=== PATIENT | female | born 1935 | race Caucasian/White ===

== ENCOUNTER → 2017-03-04 | Outpatient (CLI) | payer OTHER ==
[~2017-03-04] MED LIST: ALLO300T2 PO; AMLO5TAB2 PO; CHOL100010 PO; LEVO88TA3 PO; MULTTAB45 PO; SERT50TA PO; SULI200T PO
[2017-03-04 12:59] LABS: ALT/SGPT 19 U/L (12-78); BLOOD UREA NITROGEN 14 mg/dl (7-18); BUN/CREATININE RATIO 12.3 (10-20); CALCIUM 9.1 mg/dl (8.5-10.1); CARBON DIOXIDE 29 mmol/L (21-32); CHLORIDE 102 mmol/L (98-107); CREATININE 1.15 mg/dl (0.60-1.20); GLUCOSE,FASTING 108 mg/dl (70-99); POTASSIUM 3.7 mmol/L (3.5-5.1); SODIUM 141 mmol/L (136-145)
[2017-03-04 13:10] LABS: ALB/GLOB RATIO 1.1 (0.9-2); ALKALINE PHOSPHATASE 85 U/L (45-117); AST/SGOT 12 U/L (15-37); CHOLESTEROL 206 mg/dl (0-200); HDL CHOLESTEROL 69 mg/dl; LDL CHOLESTEROL CALCULATED 105 mg/dl; TRIGLYCERIDES 160 mg/dl (0-150); VERY LOW DENSITY LIPOPROT CALC 32 mg/dl
== END | disposition home or self-care (01) ==
LOC: C.LABPBG 08:34
PROVIDERS: ATTEND Physician Assistant
DX: Z00.00 Encounter for general adult medical examination without abnormal findings (principal); E78.5 Hyperlipidemia, unspecified; E03.9 Hypothyroidism, unspecified

== ENCOUNTER 2022-08-13 11:33 | Inpatient (IN) ==
[2022-08-13] MEDS ORDERED: SODIUM CHLORIDE 0.9% 1000ML 500 ML IV ONE (12:03)
--- NOTE | 2022-08-13 12:09 | Emergency Department Note ---
Impression & Plan Dizziness, Fall, Fracture of right hip, Dysrhythmia ED Provider Note NAME: RAGINI GODFREY AGE: 87 SEX: F : 1935 ARRIVES VIA: Ambulance INFORMANT: [Patient][ems, nursing] ED PROVIDER(S): [Sung Rivera MD] CHIEF COMPLAINT: Fall, hip pain HISTORY OF PRESENT ILLNESS: The patient is an 87-year-old female who states that a short time ago, she felt dizzy, stumbled and fell. She hit the back of her head but did not lose consciousness. She denies any neck pain or chest pain or back pain. She complains of right hip pain. In route to the hospital, the patient was given 4 mg of morphine and 4 mg Zofran IV. This helped the pain some but she still has discomfort. There has been no recent cough, cold or congestion. She has been in baseline health. She is not on blood thinning agents. PMHx/PSHx: See Below SOCIAL HISTORY: See Below. PHYSICAL EXAM: GENERAL: Patient is in no acute distress. HEENT: No acute trauma, normocephalic atraumatic, mucous membranes dry, no nasal congestion. NECK: No stridor, no adenopathy, nontender cervical spine, trachea is midline. LUNGS: Clear to auscultation bilaterally, no wheeze, no rhonchi, breath sounds equal. HEART: Without murmurs gallops or rubs, regular rate and rhythm. ABDOMEN: Soft, nontender, bowel sounds positive, no peritonitis. EXTREMITIES: No cyanosis or edema. The right lower extremity is shortened and externally rotated. She is tender over the area of the right lateral hip. The right knee and right ankle are nontender. No evidence for right lower extremity neurovascular compromise NEUROLOGIC: Oriented x 3, awake and alert. No speech slur SKIN: No rash, no jaundice, no diaphoresis. DIFFERENTIAL DIAGNOSIS: Hip fracture, pelvic fracture, intracranial injury, C-spine injury, dehydration, electrolyte imbalance, anemia, UTI, among others. EMERGENCY DEPARTMENT COURSE/PROCEDURES: Prior/Outside records reviewed: EMS notes. ECG per my interpretation: Indication was fall. The ECG shows a normal sinus rhythm with some sinus arrhythmia. The rate is 67. There is no ST elevation, no PVCs. The QTc is 435. Continuous Cardiac Monitoring per my interpretation: An order was placed for continuous cardiac monitoring. The monitor shows a rate of 69 with normal sinus rhythm. MEDICAL DECISION MAKING: There is a significant leukocytosis at 24,000, this elevation could be consistent with infection or just the stress of her presentation. There is a normal hemoglobin. Platelet count slightly elevated at over 500. No coagulopathy. No renal failure. Magnesium was low at 1.5. No concerning liver enzyme elevation. ECG showed a sinus rhythm, there was some sinus arrhythmia. No ST elevation. Cardiac enzyme testing x1 was not consistent with acute cardiac injury. TSH was slightly elevated however, the T4 was normal. Urinalysis did not show findings of infection. COVID test returned negative. Brain CT showed no acute bleed or mass effect. C-spine CT showed no acute fracture. Right hip and pelvis films per my review showed a subcapital right hip fracture, no pelvis fracture. On exam, patient appeared to have a right hip fracture clinically. Patient received IV magnesium. She was given IV morphine as needed for pain. A Lopez catheter was placed. She was given a 500 cc saline bolus. She received IV Tylenol. During the patient's stay, she had some sinus pauses of around 3 to 4 seconds. This had not been found on her ECG. The patient is in need of a hospital stay. She has fractured her hip. She did feel dizzy before falling and certainly, the sinus pauses could be responsible. She will need a cardiac work-up. I spoke with the patient and case management, the on-call hospitalist was consulted. DISPOSITION: Patient's presentation and findings warrant a hospital stay. Past Med/Surg History Medical History Afib Benign hypertension with chronic kidney disease, stage III CKD (chronic kidney disease), stage III Closed right hip fracture Depression Gout Hiatal hernia History of upper respiratory infection Hyperlipidemia Hypertension Hypothyroidism Macular degeneration Osteoporosis, senile Sinus node dysfunction SSS (sick sinus syndrome) pacer planned 08/13/22 Vitamin D deficiency Surgical History (Updated 08/13/22 @ 18:28 by Marleny Whelan DO) History of surgical removal of skin lesion skin tag up to 15 History of tonsillectomy S/P cataract surgery Family History Father , age 79 Stroke syndrome Mother , age 83 Cardiac failure Brother Lung cancer Denies family history of Ovarian cancer Prostate cancer Myocardial infarction Breast cancer Colorectal cancer Social History Smoking Status: Never smoker Tobacco Type: Cigarettes Cigarettes Per Day: 5-6 CIGGERETTES A DAY; Second Hand Exposure: No; Do You Dip or Chew Tobacco: No; Hx Alcohol Use: Yes Hx Substance Use: No Preferred Language: [place] Communication Ability: Effective Visual Impairment: No Limitations Hearing Ability: Use of Hearing Aid Binding Nicker Required: No Beliefs That Will Affect Care: None marital status: / Current Living Situation: Alone current occupational status: retired Feels Safe at Home: Yes Childhood Exposure to Second-Hand Smoke: No Diet: regular Diet Comment: regular caffeine: Yes during the past year weight has: remained stable Dental Care, Regularly: No Physical Activity Frequency: Daily Seatbelt Use: always Sunscreen Use: No Assistive Devices: Hearing Aid - Bilateral and Oxygen - Continuous Allergies Allergies Allergy/AdvReac Type Severity Reaction Status Date / Time atenolol Allergy Unknown Verified 06/25/22 13:44 chlorthalidone Allergy Unknown Verified 06/25/22 13:44 enalapril Allergy Unknown Verified 06/25/22 13:44 iodine Allergy Unknown Verified 06/25/22 13:44 shellfish derived Allergy Unknown Verified 06/25/22 13:44 Sulfa (Sulfonamide Allergy Unknown Verified 06/25/22 13:44 Antibiotics) amoxicillin [From Augmentin] Allergy Nausea and Verified 06/25/22 13:44 vomitting Beta-Blockers Allergy Verified 06/25/22 13:44 (Beta-Adrenergic Bloc clavulanic acid Allergy Verified 06/25/22 13:44 [From Augmentin] enalaprilat [From Vasotec] Allergy Verified 06/25/22 13:44 naproxen [From Aleve] Allergy Hives with Verified 06/25/22 13:44 throat swelling. Home Meds Home Medications Medication Instructions Recorded Confirmed allopurinol 300 mg tablet 300 mg PO .COMPLEX 10/27/18 08/13/22 multivitamin 1 tab PO DAILY 10/27/18 08/13/22 cholecalciferol (vitamin D3) 25 2,000 units PO DAILY 08/14/19 08/13/22 mcg (1,000 unit) tablet Previous Rx's Medication Instructions Recorded sulindac 200 mg tablet 200 mg PO DAILY #60 tabs 10/27/18 amlodipine 5 mg tablet See Rx Instructions .Route 10/09/21 .COMPLEX #90 tabs sertraline 50 mg tablet See Rx Instructions .Route 10/09/21 .COMPLEX #135 tabs levothyroxine 88 mcg tablet 88 mcg PO DAILY #90 tabs 03/22/22 Results & Data (ED) Vital Signs Vital Signs - 24 hr 08/13/22 11:48 08/13/22 11:48 08/13/22 11:52 Temperature 36.5 C 36.5 C Temperature Source Oral Oral Pulse Rate 64 69 Pulse Rate from SpO2 Sensor Respiratory Rate 15 15 Respiratory Effort / Characteristics Non-Labored Spontaneous Non-Labored Spontaneous Respiratory Depth Normal Normal Blood Pressure 145/72 H Blood Pressure Mean 96 Pulse Oximetry 95 95 Oxygen Delivery Method Room Air Room Air Sepsis Recent Fever Within 48 Hours No Sepsis New/Unexplained Change in Mental Status N/A Sepsis Action Taken by Nursing No Action Required 08/13/22 11:48 08/13/22 11:50 08/13/22 12:00 Temperature Temperature Source Pulse Rate 63 64 Pulse Rate from SpO2 Sensor 64 62 Respiratory Rate 13 16 Respiratory Effort / Characteristics Respiratory Depth Blood Pressure 144/71 H Blood Pressure Mean 95 Pulse Oximetry 97 96 Oxygen Delivery Method Sepsis Recent Fever Within 48 Hours Sepsis New/Unexplained Change in Mental Status Sepsis Action Taken by Nursing 08/13/22 12:00 08/13/22 12:10 08/13/22 12:33 Temperature Temperature Source Pulse Rate 64 65 78 Pulse Rate from SpO2 Sensor 68 Respiratory Rate 21 17 15 Respiratory Effort / Characteristics Respiratory Depth Blood Pressure Blood Pressure Mean Pulse Oximetry 93 93 Oxygen Delivery Method Sepsis Recent Fever Within 48 Hours Sepsis New/Unexplained Change in Mental Status Sepsis Action Taken by Nursing 08/13/22 12:40 08/13/22 12:50 08/13/22 13:00 Temperature Temperature Source Pulse Rate 78 72 109 H Pulse Rate from SpO2 Sensor 77 98 H Respiratory Rate 19 15 20 Respiratory Effort / Characteristics Respiratory Depth Blood Pressure Blood Pressure Mean Pulse Oximetry 93 98 Oxygen Delivery Method Sepsis Recent Fever Within 48 Hours Sepsis New/Unexplained Change in Mental Status Sepsis Action Taken by Nursing 08/13/22 13:10 08/13/22 13:20 08/13/22 13:24 Temperature Temperature Source Pulse Rate 98 H 86 102 H Pulse Rate from SpO2 Sensor 100 H 85 109 H Respiratory Rate 16 21 18 Respiratory Effort / Characteristics Respiratory Depth Blood Pressure Blood Pressure Mean Pulse Oximetry 98 97 98 Oxygen Delivery Method Sepsis Recent Fever Within 48 Hours Sepsis New/Unexplained Change in Mental Status Sepsis Action Taken by Nursing 08/13/22 13:24 08/13/22 13:30 08/13/22 13:31 Temperature Temperature Source Pulse Rate 86 Pulse Rate from SpO2 Sensor 82 Respiratory Rate 18 Respiratory Effort / Characteristics Respiratory Depth Blood Pressure 131/101 H 143/102 H Blood Pressure Mean 111 115 Pulse Oximetry 96 Oxygen Delivery Method Sepsis Recent Fever Within 48 Hours Sepsis New/Unexplained Change in Mental Status Sepsis Action Taken by Nursing 08/13/22 13:31 08/13/22 13:40 08/13/22 13:50 Temperature Temperature Source Pulse Rate 94 H 94 H 97 H Pulse Rate from SpO2 Sensor 85 97 H 88 Respiratory Rate 16 16 22 Respiratory Effort / Characteristics Respiratory Depth Blood Pressure Blood Pressure Mean Pulse Oximetry 99 98 97 Oxygen Delivery Method Sepsis Recent Fever Within 48 Hours Sepsis New/Unexplained Change in Mental Status Sepsis Action Taken by Nursing 08/13/22 14:00 08/13/22 14:10 08/13/22 14:20 Temperature Temperature Source Pulse Rate 86 82 78 Pulse Rate from SpO2 Sensor 93 H 83 77 Respiratory Rate 13 17 18 Respiratory Effort / Characteristics Respiratory Depth Blood Pressure Blood Pressure Mean Pulse Oximetry 99 99 99 Oxygen Delivery Method Sepsis Recent Fever Within 48 Hours Sepsis New/Unexplained Change in Mental Status Sepsis Action Taken by Nursing 08/13/22 14:30 08/13/22 14:33 08/13/22 14:33 Temperature Temperature Source Pulse Rate 83 84 Pulse Rate from SpO2 Sensor 83 84 Respiratory Rate 13 17 Respiratory Effort / Characteristics Respiratory Depth Blood Pressure 173/98 H Blood Pressure Mean 123 Pulse Oximetry 99 99 Oxygen Delivery Method Sepsis Recent Fever Within 48 Hours Sepsis New/Unexplained Change in Mental Status Sepsis Action Taken by Nursing 08/13/22 14:40 08/13/22 14:50 08/13/22 15:00 Temperature Temperature Source Pulse Rate 81 73 Pulse Rate from SpO2 Sensor 82 83 Respiratory Rate 15 12 Respiratory Effort / Characteristics Respiratory Depth Blood Pressure 148/74 H Blood Pressure Mean 98 Pulse Oximetry 97 99 Oxygen Delivery Method Sepsis Recent Fever Within 48 Hours Sepsis New/Unexplained Change in Mental Status Sepsis Action Taken by Nursing 08/13/22 15:00 08/13/22 15:10 08/13/22 15:20 Temperature Temperature Source Pulse Rate 71 79 74 Pulse Rate from SpO2 Sensor 75 74 74 Respiratory Rate 15 14 19 Respiratory Effort / Characteristics Respiratory Depth Blood Pressure Blood Pressure Mean Pulse Oximetry 98 96 94 Oxygen Delivery Method Sepsis Recent Fever Within 48 Hours Sepsis New/Unexplained Change in Mental Status Sepsis Action Taken by Nursing 08/13/22 15:30 08/13/22 15:30 Temperature Temperature Source Pulse Rate 75 Pulse Rate from SpO2 Sensor 76 Respiratory Rate 15 Respiratory Effort / Characteristics Respiratory Depth Blood Pressure 162/69 H Blood Pressure Mean 100 Pulse Oximetry 99 Oxygen Delivery Method Sepsis Recent Fever Within 48 Hours Sepsis New/Unexplained Change in Mental Status Sepsis Action Taken by Alf Medications Current Medication List: was personally reviewed by me Laboratory Data Attestation: I reviewed the patient's lab results. 08/13/22 12:20 08/13/22 12:20 Lab Results 08/13/22 08/13/22 08/13/22 Range/Units 12:10 12:20 12:20 WBC 24.97 H (4.8-10.8) K/ul RBC 3.99 L (4.20-5.40) M/uL Hgb 12.6 (12.0-16.0) g/dl Hct 36.6 L (37.0-47.0) % MCV 91.7 (80.0-100.0) fL MCH 31.6 (25.0-34.0) pg MCHC 34.4 (32.0-36.0) g/dL RDW Std Deviation 43.8 (36.4-46.3) fL RDW Coeff of Fabrice 13.1 (11.5-14.5) % Plt Count 562 H (130-400) K/uL MPV 9.7 (9.4-12.4) fL Immature Gran % (Auto) 0.8 % Neut % (Auto) 91.4 % Lymph % (Auto) 4.2 % Haakon % (Auto) 3.2 % Eos % (Auto) 0.2 % Baso % (Auto) 0.2 % Neut # (Auto) 22.81 H (1.40-6.50) K/uL Lymph # (Auto) 1.05 L (1.2-3.4) K/uL Haakon # (Auto) 0.81 H (0.11-0.59) K/uL Eos # (Auto) 0.06 (0-0.50) K/uL Baso # (Auto) 0.05 (0-0.2) K/uL Immature Gran # (Auto) 0.19 (0.01-0.20) K/uL PT 11.1 (9.0-12.0) Seconds INR 1.0 (0.9-1.1) APTT 26.4 (21.0-31.0) Seconds PTT Ratio 0.9 Sodium (136-145) mmol/L Potassium (3.5-5.1) mmol/L Chloride (98-107) mmol/L Carbon Dioxide (21-32) mmol/L Anion Gap (3-11) BUN (6-23) mg/dl Creatinine (0.6-1.2) mg/dl Est Cr Clr Drug Dosing Est GFR ( Amer) ml/min Est GFR (Non-Af Amer) ml/min BUN/Creatinine Ratio (10-20) Glucose (70-99(Fasting)) mg/dl Calcium (8.6-10.3) mg/dl Magnesium (1.7-2.4) mg/dl Total Bilirubin (0.2-1.0) mg/dl AST (13-39) U/L ALT (7-52) U/L Alkaline Phosphatase (34-104) U/L Troponin I High Sens (0-14) pg/ml Total Protein (6.0-8.3) gm/dl Albumin (3.4-5.0) gm/dl Globulin (2.5-4.0) gm/dl Albumin/Globulin Ratio (0.9-2) TSH (0.300-4.500) uIu/ml Free T4 (0.61-1.60) ng/dl Urine Color Urine Appearance (Clear) Urine pH (4.5-7.5) Ur Specific Gray (1.000-1.030) Urine Protein (Negative) Urine Glucose (UA) (Negative) Urine Ketones (Negative) Urine Blood (Negative) Urine Nitrite (Negative) Urine Bilirubin (Negative) Urine Urobilinogen (Negative) Ur Leukocyte Esterase (Negative) Urine WBC (Auto) (0-5) /hpf Urine RBC (Auto) (0-4) /hpf U Hyaline Cast (Auto) (0-5) /lpf U Epithel Cells (Auto) (0-5) /lpf Urine Bacteria (Auto) (Negative) SARS-CoV-2, RNA, NAAT NEGATIVE (NEGATIVE) 08/13/22 08/13/22 08/13/22 Range/Units 12:20 12:20 13:20 WBC (4.8-10.8) K/ul RBC (4.20-5.40) M/uL Hgb (12.0-16.0) g/dl Hct (37.0-47.0) % MCV (80.0-100.0) fL MCH (25.0-34.0) pg MCHC (32.0-36.0) g/dL RDW Std Deviation (36.4-46.3) fL RDW Coeff of Fabrice (11.5-14.5) % Plt Count (130-400) K/uL MPV (9.4-12.4) fL Immature Gran % (Auto) % Neut % (Auto) % Lymph % (Auto) % Haakon % (Auto) % Eos % (Auto) % Baso % (Auto) % Neut # (Auto) (1.40-6.50) K/uL Lymph # (Auto) (1.2-3.4) K/uL Haakon # (Auto) (0.11-0.59) K/uL Eos # (Auto) (0-0.50) K/uL Baso # (Auto) (0-0.2) K/uL Immature Gran # (Auto) (0.01-0.20) K/uL PT (9.0-12.0) Seconds INR (0.9-1.1) APTT (21.0-31.0) Seconds PTT Ratio Sodium 138 (136-145) mmol/L Potassium 3.7 (3.5-5.1) mmol/L Chloride 101 (98-107) mmol/L Carbon Dioxide 27 (21-32) mmol/L Anion Gap 10 (3-11) BUN 17 (6-23) mg/dl Creatinine 0.89 (0.6-1.2) mg/dl Est Cr Clr Drug Dosing Not Reportable Est GFR ( Amer) 67.1 ml/min Est GFR (Non-Af Amer) 57.9 ml/min BUN/Creatinine Ratio 19.1 (10-20) Glucose 113 H (70-99(Fasting)) mg/dl Calcium 9.4 (8.6-10.3) mg/dl Magnesium 1.5 L (1.7-2.4) mg/dl Total Bilirubin 0.5 (0.2-1.0) mg/dl AST 19 (13-39) U/L ALT 11 (7-52) U/L Alkaline Phosphatase 73 (34-104) U/L Troponin I High Sens 7.1 (0-14) pg/ml Total Protein 6.2 (6.0-8.3) gm/dl Albumin 3.9 (3.4-5.0) gm/dl Globulin 2.3 L (2.5-4.0) gm/dl Albumin/Globulin Ratio 1.7 (0.9-2) TSH 4.829 H (0.300-4.500) uIu/ml Free T4 1.08 (0.61-1.60) ng/dl Urine Color Yellow Urine Appearance Clear (Clear) Urine pH 7.5 (4.5-7.5) Ur Specific Gray 1.009 (1.000-1.030) Urine Protein Negative (Negative) Urine Glucose (UA) Negative (Negative) Urine Ketones Negative (Negative) Urine Blood 2+ H (Negative) Urine Nitrite Negative (Negative) Urine Bilirubin Negative (Negative) Urine Urobilinogen Negative (Negative) Ur Leukocyte Esterase Trace H (Negative) Urine WBC (Auto) 1-5 (0-5) /hpf Urine RBC (Auto) 0-4 (0-4) /hpf U Hyaline Cast (Auto) 1-5 (0-5) /lpf U Epithel Cells (Auto) >30 H (0-5) /lpf Urine Bacteria (Auto) Negative (Negative) SARS-CoV-2, RNA, NAAT (NEGATIVE) 08/13/22 Range/Units 13:28 WBC (4.8-10.8) K/ul RBC (4.20-5.40) M/uL Hgb (12.0-16.0) g/dl Hct (37.0-47.0) % MCV (80.0-100.0) fL MCH (25.0-34.0) pg MCHC (32.0-36.0) g/dL RDW Std Deviation (36.4-46.3) fL RDW Coeff of Fabrice (11.5-14.5) % Plt Count (130-400) K/uL MPV (9.4-12.4) fL Immature Gran % (Auto) % Neut % (Auto) % Lymph % (Auto) % Haakon % (Auto) % Eos % (Auto) % Baso % (Auto) % Neut # (Auto) (1.40-6.50) K/uL Lymph # (Auto) (1.2-3.4) K/uL Haakon # (Auto) (0.11-0.59) K/uL Eos # (Auto) (0-0.50) K/uL Baso # (Auto) (0-0.2) K/uL Immature Gran # (Auto) (0.01-0.20) K/uL PT (9.0-12.0) Seconds INR (0.9-1.1) APTT (21.0-31.0) Seconds PTT Ratio Sodium (136-145) mmol/L Potassium (3.5-5.1) mmol/L Chloride (98-107) mmol/L Carbon Dioxide (21-32) mmol/L Anion Gap (3-11) BUN (6-23) mg/dl Creatinine (0.6-1.2) mg/dl Est Cr Clr Drug Dosing Est GFR ( Amer) ml/min Est GFR (Non-Af Amer) ml/min BUN/Creatinine Ratio (10-20) Glucose (70-99(Fasting)) mg/dl Calcium (8.6-10.3) mg/dl Magnesium Cancelled (1.7-2.4) mg/dl Total Bilirubin (0.2-1.0) mg/dl AST (13-39) U/L ALT (7-52) U/L Alkaline Phosphatase (34-104) U/L Troponin I High Sens Cancelled (0-14) pg/ml Total Protein (6.0-8.3) gm/dl Albumin (3.4-5.0) gm/dl Globulin (2.5-4.0) gm/dl Albumin/Globulin Ratio (0.9-2) TSH (0.300-4.500) uIu/ml Free T4 (0.61-1.60) ng/dl Urine Color Urine Appearance (Clear) Urine pH (4.5-7.5) Ur Specific Gray (1.000-1.030) Urine Protein (Negative) Urine Glucose (UA) (Negative) Urine Ketones (Negative) Urine Blood (Negative) Urine Nitrite (Negative) Urine Bilirubin (Negative) Urine Urobilinogen (Negative) Ur Leukocyte Esterase (Negative) Urine WBC (Auto) (0-5) /hpf Urine RBC (Auto) (0-4) /hpf U Hyaline Cast (Auto) (0-5) /lpf U Epithel Cells (Auto) (0-5) /lpf Urine Bacteria (Auto) (Negative) SARS-CoV-2, RNA, NAAT (NEGATIVE) Administered Medications Hydromorphone HCl (Hydromorphone Inj 0.5 Mg/0.5 Ml Syr) 0.25 mg IV Q4H PRN PRN Reason: Pain (1,2,3,4,5) & Pre PT Stop: 08/27/22 15:54 Last Admin: 08/13/22 18:07 Dose: 0.25 mg Documented By: ABIGAIL Amiodarone HCl/Dextrose (Nexterone / D5w) 360 mg in 200 mls @ 33.333 mls/hr IV ONE ONE Stop: 08/13/22 21:05 Last Admin: 08/13/22 15:43 Dose: 1 mg/min, 33.3 mls/hr Documented By: KENNETH Co-signed By: ASHA Parenteral Electrolytes (Plasma-Lyte A Ph 7.4) 1,000 mls @ 100 mls/hr IV .Q10H ASTRID Stop: 09/12/22 15:59 Last Admin: 08/13/22 17:50 Dose: 100 mls/hr Documented By: CHAN Morphine Sulfate (Morphine Sulfate 2 Mg/Ml Carp) 2 mg IV Q15M PRN PRN Reason: Pain Stop: 08/27/22 12:02 Last Admin: 08/13/22 12:48 Dose: 2 mg Documented By: Admin: 08/13/22 12:12 Dose: 2 mg Documented By: KENNETH Discontinued Medications Atropine Sulfate (Atropine Sulfate 0.1 Mg/Ml 10ml Syr) Confirm Administered Dose 1 mg IV .STK-MED ONE Stop: 08/13/22 14:04 Last Admin: 08/13/22 14:51 Dose: Not Given Documented By: KENNETH Sodium Chloride (Nss 1000ml) 500 mls @ 999 mls/hr IV .Q31M ONE Stop: 08/13/22 12:33 Last Infusion: 08/13/22 12:49 Dose: 0 mls/hr Documented By: Admin: 08/13/22 12:12 Dose: 999 mls/hr Documented By: KENNETH Acetaminophen (Ofirmev) 1,000 mg in 100 mls @ 400 mls/hr IV NOW STA Stop: 08/13/22 12:49 Last Infusion: 08/13/22 13:22 Dose: 0 mls/hr Documented By: Admin: 08/13/22 12:48 Dose: 400 mls/hr Documented By: KENNETH Amiodarone HCl/Dextrose (Nexterone / D5w) 150 mg in 100 mls @ 600 mls/hr IV NOW STA Stop: 08/13/22 15:00 Last Infusion: 08/13/22 15:43 Dose: 0 mls/hr Documented By: KENNETH Co-signed By: ASHA Admin: 08/13/22 15:28 Dose: 600 mls/hr Documented By: KENNETH Co-signed By: HS Magnesium Sulfate/Dextrose (Magnesium Sulfate / D5w) 1 gm in 100 mls @ 100 mls/hr IV NOW STA Stop: 08/13/22 16:00 Last Infusion: 08/13/22 17:48 Dose: 0 mls/hr Documented By: Admin: 08/13/22 15:28 Dose: 100 mls/hr Documented By: KENNETH Magnesium Sulfate/Dextrose (Magnesium Sulfate / D5w) 1 gm in 100 mls @ 50 mls/hr IV ONE ONE Stop: 08/13/22 17:54 Last Admin: 08/13/22 17:47 Dose: Not Given Documented By: CHAN Imaging Data Radiologist's Impression: Cervical Spine CT 08/13/22 12:[address] DOSE: HISTORY: fall, trauma TECHNIQUE: Multiaxial CT images of the cervical spine were performed and reformatted in the sagittal and coronal plane without the use of contrast. A dose lowering technique was utilized adhering to the principles of ALARA. COMPARISON: None. FINDINGS: No fractures. No subluxation. Prevertebral soft tissues and the C1-C2 interval are intact. No pneumothorax. Patchy biapical irregular densities are noted. These are nonspecific but favor scarring. [id number] degenerative changes within the cervical spine. IMPRESSION: No fractures within the cervical spine. ACT 112: Negative or not required by law. Electronically signed by: González Hernandez M.D. 08/13/2022 12:[address] 08/13/22 12:03 CT head/brain wo con CLINICAL HISTORY: 87 years-old Female with fall, trauma. Injury status post fall TECHNIQUE: Multiple axial CT images of the head were obtained without contrast. A dose lowering technique was utilized adhering to the principles of ALARA. CT DOSE: 1579.93 mGy.cm COMPARISON: 03/31/2022 FINDINGS: No acute intracranial hemorrhage, midline shift, intracranial mass, h ydrocephalus, territorial ischemia or abnormal extra-axial collection. Involutional changes with chronic microvascular ischemic disease. The study was motion degraded and then repeated. The calvarium is intact. Prior bilateral lens repair. The paranasal sinuses, mastoid air cells, and middle ear cavities are clear. IMPRESSION: Motion degraded exam. No acute intracranial abnormality or calvarial fracture identified. ACT 112: Negative or not required by law. The above report was generated using voice recognition software. It may contain grammatical, syntax or spelling errors. Electronically signed by: Norman Walsh M.D. 08/13/2022 12:34 PM Hip/Pelvis X-Ray 08/13/22 12:03 XR hip RT 2V w pelvis HISTORY: 87 years-old Female fall, pain acute right hip pain status post fall COMPARISON: None TECHNIQUE: AP view of the pelvis with 2 views of the right hip FINDINGS: Demineralization appearance of the bones. Mild to moderate osteophytosis of the hips. There is an acute transcervical fracture of the right femur with mild im paction, apex superolateral angulation and superior displacement of approximately 1.3 cm. No dislocation or additional acute fracture identified. Mild soft tissue swelling lateral to the right hip. IMPRESSION: Acute mildly impacted, displaced and angulated transcervical fra cture of the right femur. ACT 112: Negative or not required by law. The above report was generated using voice recognition software. It may contain grammatical, syntax or spelling errors. Electronically signed by: Norman Walsh M.D. 08/13/2022 12:53 PM Chest X-Ray 08/13/22 13:37 SINGLE VIEW CHEST CLINICAL HISTORY: Fall. Weakness. Leukocytosis. FINDINGS: An AP, portable, upright chest radiograph is obtained. No prior studies are available for comparison at the time of dictation. The examination is degraded by portable technique and apical lordotic positioning. The heart is enlarged note atherosclerotic calcification of the thoracic aorta. The pulmonary vasculature is noncongested. Chronic interstitial thickening is similar to previous. There is mild bibasilar scarring/atelectasis. The lungs and pleural spaces are otherwise clear. No pneumothorax is seen. The skeletal structures are osteopenic. The bony thorax is grossly intact. IMPRESSION: Cardiomegaly with no acute cardiopulmonary abnormality identified. ACT 112: Negative or not required by law. Electronically signed by: Sung Jose M.D. 08/13/2022 2:00 PM Discharge Plan Visit Data Chief Complaint: Fall ED Provider: Sung Rivera Discharge Problem: Dizziness, Fall, Fracture of right hip, Dysrhythmia Patient Disposition: Admitted As Inpatient Condition: Fair Discharge Instructions Interventions: ED Discharge Assessment Last Done: 08/13/22 16:30
[2022-08-13] MEDS: MoRPHine SULFATE 2 MG/ML CARP IV PRN ×2 (12:12→12:48)
[2022-08-13] MEDS ORDERED: ACETAMINOPHEN 1,000 MG/100 ML VIAL IV STA (12:35)
--- NOTE | 2022-08-13 12:36 | CT Scan Report ---
CT head/brain wo con CLINICAL HISTORY: 87 years-old Female with fall, trauma. Injury status post fall TECHNIQUE: Multiple axial CT images of the head were obtained without contrast. A dose lowering tech nique was utilized adhering to the principles of ALARA. CT DOSE: 1579.93 mGy.cm COMPARISON: 03/31/2022 FINDINGS: No acute intracranial hemorrhage, midline shift, intracranial mass, hydrocephalus, territorial ischem ia or abnormal extra-axial collection. Involutional changes with chronic microvascular ischemic disea se. The study was motion degraded and then repeated. The calvarium is intact. Prior bilateral lens repair. The paranasal sinuses, mastoid air cells, and m iddle ear cavities are clear. IMPRESSION: Motion degraded exam. No acute intracranial abnormality or calvarial fracture identified . ACT 112: Negative or not required by law. The above report was generated using voice recognition software. It may contain grammatical, syntax o r spelling errors. Electronically signed by: Norman Walsh M.D. 08/13/2022 12:34 PM
--- NOTE | 2022-08-13 12:43 | CT Scan Report ---
CERVICAL SPINE CT CT DOSE: HISTORY: fall, trauma TECHNIQUE: Multiaxial CT images of the cervical spine were performed and reformatted in the sagittal and coronal plane without the use of contrast. A dose lowering technique was utilized adhering to th e principles of ALARA. COMPARISON: None. FINDINGS: No fractures. No subluxation. Prevertebral soft tissues and the C1-C2 interval are intact. No pneumothorax. Patchy biapical irregular densities are noted. These are nonspecific but favor scarr ing. [id number] degenerative changes within the cervical spine. IMPRESSION: No fractures within the cervical spine. ACT 112: Negative or not required by law. Electronically signed by: González Hernandez M.D. 08/13/2022 12:41 PM
[2022-08-13 12:51] LABS: Hematocrit (blood only) 36.6 % (37.0-47.0); Hemoglobin 12.6 g/dl (12.0-16.0); Mean Corpuscular Hemoglobin 31.6 pg (25.0-34.0); Mean Corpuscular Hgb Conc 34.4 g/dL (32.0-36.0); Mean Corpuscular Volume 91.7 fL (80.0-100.0); Mean Platelet Volume 9.7 fL (9.4-12.4); Platelet Count 562 K/uL (130-400); RDW Coefficient of Variation 13.1 % (11.5-14.5); RDW Standard Deviation 43.8 fL (36.4-46.3); Red Blood Count 3.99 M/uL (4.20-5.40); White Blood Count 24.97 K/ul (4.8-10.8)
--- NOTE | 2022-08-13 12:54 | XRay Report ---
XR hip RT 2V w pelvis HISTORY: 87 years-old Female fall, pain acute right hip pain status post fall COMPARISON: None TECHNIQUE: AP view of the pelvis with 2 views of the right hip FINDINGS: Demineralization appearance of the bones. Mild to moderate osteophytosis of the hips. There is an acu te transcervical fracture of the right femur with mild impaction, apex superolateral angulation and s uperior displacement of approximately 1.3 cm. No dislocation or additional acute fracture identified. Mild soft tissue swelling lateral to the right hip. IMPRESSION: Acute mildly impacted, displaced and angulated transcervical fracture of the right femur. ACT 112: Negative or not required by law. The above report was generated using voice recognition software. It may contain grammatical, syntax o r spelling errors. Electronically signed by: Norman Walsh M.D. 08/13/2022 12:53 PM
[2022-08-13 13:09] LABS: Alanine Aminotransferase 11 U/L (7-52); Albumin Globulin Ratio 1.7 (0.9-2); Albumin Level 3.9 gm/dl (3.4-5.0); Alkaline Phosphatase 73 U/L (34-104); Anion Gap 10 (3-11); Aspartate Aminotransferase 19 U/L (13-39); BUN Creatinine Ratio 19.1 (10-20); Bilirubin,Total 0.5 mg/dl (0.2-1.0); Blood Urea Nitrogen 17 mg/dl (6-23); Calcium 9.4 mg/dl (8.6-10.3); Carbon Dioxide 27 mmol/L (21-32); Chloride 101 mmol/L (98-107); Est GFR (African American) 67.1 ml/min; Est GFR (Non-African American) 57.9 ml/min; Globulin 2.3 gm/dl (2.5-4.0); Glucose 113 mg/dl (70-99(Fasting)); Potassium 3.7 mmol/L (3.5-5.1); Sodium 138 mmol/L (136-145); Total Protein 6.2 gm/dl (6.0-8.3)
[2022-08-13 13:18] LABS: Basophils # (auto) 0.05 K/uL (0-0.2); Basophils % (auto) 0.2 %; Eosinophils # (auto) 0.06 K/uL (0-0.50); Eosinophils % (auto) 0.2 %; Immature Granulocytes # (auto) 0.19 K/uL (0.01-0.20); Immature Granulocytes % (auto) 0.8 %; Lymphocytes # (auto) 1.05 K/uL (1.2-3.4); Lymphocytes % (auto) 4.2 %; Monocytes # (auto) 0.81 K/uL (0.11-0.59); Monocytes % (auto) 3.2 %; Neutrophils # (auto) 22.81 K/uL (1.40-6.50); Neutrophils % (auto) 91.4 %
--- NOTE | 2022-08-13 13:42 | History & Physical Report ---
Date of Service August 13, 2022 Assessment & Plan (1) Pre-syncope: Plan: Fall w/ hip Fxr, presyncope Prior fall in dec, frequent episodes of lightheadedness/dizziness which come on suddenly in the preceding weeks - CXR: IMPRESSION: Acute mildly impacted, displaced and angulated transcervical fracture of the right femur. Is with leukocytosis, patient denies shortness of breath, difficulty breathing, chest pain, abdominal pain, nausea/vomiting/diarrhea, skin ulcers/infections, fever, chills or other infectious symptoms. Does not identify any source of infection, WBC may be reactive but is significantly elevated. Cultures are pending, UA is contaminated appearing and patient does not have any dysuria, CXR is with cardiomegaly otherwise no acute findings. WBC trended Ortho consulted. Anticipate operative repair post pacer placement Hemoglobin 12.6, MCV normal Platelets 562 likely reactive Sodium, potassium normal. Renal function with creatinine less than 1.0 baseline, admitting creatinine 0.89 COVID-negative Presyncope, suspect due to pauses. New Afib with conversion pauses 3-4 seconds EKG normal sinus rhythm with sinus arrhythmia, T wave inversion appreciated in V3 no territorial ST segment changes with QTc 435. Last baseline 2013, NSR without any acute abnormalities Pauses on monitor 3-4 seconds, and subsequently has converted into A-fib. Review of tele with several pauses including conversion pauses Cardiology consulted. Anticipate pacer placement tomorrow morning. With place on amio, may slow sinus rate but likely to help prevention conversion pauses. - Defer anticoagulation for afib until post-hip replacement Pacer pads at bedside, atropine at bedside. Troponin wnl - Echo pending - Admit to telemetry [id number] risk of 4, patient should be anticoagulated post operatively Recommend indefinite anticoagulation due A-fib with [id number] greater than 3. Defer anticoagulation preop due to bleeding risk and anticipate DOAC postop - Optimize mag 2.0, K 4.0. Additional 1g mag ordered. Trended Hypertension Previously well controlled, continue amlodipine CKD 3 Has declined follow-up with nephrology in the past Admitting creatinine 0.89 BUN/creatinine ratio borderline at 19.1 500 cc NSS given - Trend daily Osteoarthritis Chronic sulindac use, aware of side effects but continued due to quality of life improvement as outpatient Temporarily held Hyperlipidemia Last LDL 105. Mediterranean diet at home Hypothyroidism Continue Synthroid TSH pending DVT prophylaxis: SCDs preop Disposition:PCU Diet: NPO pending pacer placement and hip repair CODE STATUS: DNR/DNI, discussed with patient at bedside (2) Closed right hip fracture: (3) Hypothyroidism: (4) Hypertension: (5) Hyperlipidemia: (6) Gout: (7) Depression: (8) CKD (chronic kidney disease), stage III: (9) Afib: History of Present Illness Primary Care Provider: Stuart Mathis MD Cathleen is an 87-year-old female with a past medical history of hypothyroidism, hypertension, hyperlipidemia, CKD, and gout on amlodipine who was lightheaded and dizzy while standing and fell sustaining a mildly impacted, displaced saucedo scervical fracture of the right femur. CThead motion degraded, but without acute intracranial abnormality. CT of the C-spine shows no fractures or subluxation of the C-spine. Generative changes are noted. Cathleen is seen at the bedside. She reports that she was walking and went to her closet when she suddenly had a dizzy spell which caused her to fall. She did not lose consciousness completely, but fell and struck her hip and immediately could not bear weight on her right leg. She reports she has not had chest pain, chest pressure, shortness of breath, or difficulty breathing at any point but has had several spells of dizziness in the preceding days/weeks which seem to come on out of nowhere and are not necessarily triggered by standing. She reports her blood pressure is normally slightly high, and adequately controlled with amlodipine. She does not take any beta-blockers or other heart medicines. She has not had any history of heart attacks, PCI, bypass. Denies tobacco product use, endorses intermittent social alcohol use Mediterranean diet, outpatient lipid checks last with LDL 105, is not on a statin and diet control 7. She reports other than feeling head and dizzy she has not been sick and has had no symptoms of being sick. She denies cough, sputum production, congestion, abdominal pain, nausea/vomiting/diarrhea, numbness and tingling, skin wounds, and areas of pain other than her right hip since following Medical History: Reviewed Medications: Reviewed Surgical History: Reviewed Family history: Reviewed Allergies: Reviewed Social History: Denies tobacco use, endorses social alcohol use. No recreational drug use Code Status: DNR/DNI, discussed at bedside Allergies Allergy/AdvReac Type Severity Reaction Status Date / Time atenolol Allergy Unknown Verified 06/25/22 13:44 chlorthalidone Allergy Unknown Verified 06/25/22 13:44 enalapril Allergy Unknown Verified 06/25/22 13:44 iodine Allergy Unknown Verified 06/25/22 13:44 shellfish derived Allergy Unknown Verified 06/25/22 13:44 Sulfa (Sulfonamide Allergy Unknown Verified 06/25/22 13:44 Antibiotics) amoxicillin [From Augmentin] Allergy Nausea and Verified 06/25/22 13:44 vomitting Beta-Blockers Allergy Verified 06/25/22 13:44 (Beta-Adrenergic Bloc clavulanic acid Allergy Verified 06/25/22 13:44 [From Augmentin] enalaprilat [From Vasotec] Allergy Verified 06/25/22 13:44 naproxen [From Aleve] Allergy Hives with Verified 06/25/22 13:44 throat swelling. Home Medications Medication Instructions Recorded Confirmed Type allopurinol 300 mg tablet 300 mg PO .COMPLEX 10/27/18 08/13/22 History multivitamin 1 tab PO DAILY 10/27/18 08/13/22 History sulindac 200 mg tablet 200 mg PO DAILY #60 tabs 10/27/18 08/13/22 Rx cholecalciferol (vitamin D3) 25 2,000 units PO DAILY 08/14/19 08/13/22 History mcg (1,000 unit) tablet amlodipine 5 mg tablet See Rx Instructions .Route 10/09/21 08/13/22 Rx .COMPLEX #90 tabs sertraline 50 mg tablet See Rx Instructions .Route 10/09/21 08/13/22 Rx .COMPLEX #135 tabs levothyroxine 88 mcg tablet 88 mcg PO DAILY #90 tabs 03/22/22 08/13/22 Rx Past Med/Surg History Medical History Benign hypertension with chronic kidney disease, stage III CKD (chronic kidney disease), stage III Depression Gout Hiatal hernia History of upper respiratory infection Hyperlipidemia Hypertension Hypothyroidism Macular degeneration Osteoporosis, senile Vitamin D deficiency Surgical History History of surgical removal of skin lesion skin tag up to 15 S/P cataract surgery Family History Father , age 79 Stroke syndrome Mother , age 83 Cardiac failure Brother Lung cancer Denies family history of Ovarian cancer Prostate cancer Myocardial infarction Breast cancer Colorectal cancer Social History Smoking Status: Never smoker Tobacco Type: Cigarettes Cigarettes Per Day: 5-6 CIGGERETTES A DAY; Second Hand Exposure: No; Do You Dip or Chew Tobacco: No; Hx Alcohol Use: Yes Hx Substance Use: No Preferred Language: Upper Sorbian Communication Ability: Effective Visual Impairment: No Limitations Hearing Ability: Use of Hearing Aid Truck Hop Required: No Beliefs That Will Affect Care: None marital status: / Current Living Situation: Alone current occupational status: retired Feels Safe at Home: Yes Childhood Exposure to Second-Hand Smoke: No Diet: regular Diet Comment: regular caffeine: Yes during the past year weight has: remained stable Dental Care, Regularly: No Physical Activity Frequency: Daily Seatbelt Use: always Sunscreen Use: No Review of Systems Review of Systems: All systems reviewed & are unremarkable except as noted in HPI & below Physical Exam Physical Exam: General: A&Ox3. NAD. Cooperative. HEENT: Atraumatic, normocephalic. Vision/hearing intact Pulm: CTAB A&P. -wheezes, -rales, -rhonchi. Symmetrical chest rise. No increased work of breathing. No respiratory distress. Cardiac: intially RRR, durin exam with conversion to irir w/ tachycardia, then rrr on rexamination. soft sm. Abdominal: Nontender, nondistended, soft. BS present. Ext: R leg externally rotated & shortened at rest. Sensation to soft touch intact in feet bilaterally, ankle dorsiflexion/plantarflexion 5/5 bilaterally. PT pulse intact bilaterally. Lateral and anterior R hip TTP. No hematoma/contusion appreciated. Results & Data Results & Data Vital Signs (Past 12 Hours) Vital Signs Temp Pulse Resp BP Pulse Ox O2 Del Method 08/13/22 11:52 69 08/13/22 11:48 36.5 C 15 95 Room Air 08/13/22 11:48 36.5 C 64 15 145/72 H 95 Room Air PG Care Time/CCT Total # of Minutes Spent Total Time Spent with Patient: Total time spent is greater than 50% in coordination of care (as documented) at patient's floor/unit and/or counseling patient: Coding Level of Care Code 78672 INT INP/OBS CARE 3/75MIN Diagnoses Pre-syncope R55 Closed right hip fracture S72.001A Hypothyroidism E03.9 Hypothyroidism type: acquired Hypertension I10 Hypertension type: essential hypertension Hyperlipidemia E78.5 Hyperlipidemia type: unspecified Gout M10.9 Depression F32.9 CKD (chronic kidney disease), stage III N18.3 Afib I48.91 (3) Hypothyroidism Hypothyroidism type: acquired Qualified Code(s): E03.9 - Hypothyroidism, unspecified (4) Hypertension Hypertension type: essential hypertension Qualified Code(s): I10 - Essential (primary) hypertension (5) Hyperlipidemia Hyperlipidemia type: unspecified Qualified Code(s): E78.5 - Hyperlipidemia, unspecified
[2022-08-13 13:44] LABS: Appearance Urine Clear (Clear); Bacteria Urine Automated Negative (Negative); Bilirubin Urine Negative (Negative); Blood Urine 2+ (Negative); Color Urine Yellow; Epithelial Cell Urine Auto >30 /lpf (0-5); Glucose Urine UA Negative (Negative); Ketones Urine Negative (Negative); Leukocyte Esterase Urine Trace (Negative); Nitrite Urine Negative (Negative); Protein Urine Negative (Negative); RBC Urine Automated 0-4 /hpf (0-4); Specific Gravity Urine 1.009 (1.000-1.030); Urobilinogen Urine Negative (Negative); pH Urine 7.5 (4.5-7.5)
[2022-08-13 13:45] LABS: Partial Thromboplastin Ratio 0.9; Partial Thromboplastin Time 26.4 Seconds (21.0-31.0); Prothrombin Time 11.1 Seconds (9.0-12.0)
--- NOTE | 2022-08-13 14:01 | XRay Report ---
SINGLE VIEW CHEST CLINICAL HISTORY: Fall. Weakness. Leukocytosis. FINDINGS: An AP, portable, upright chest radiograph is obtained. No prior studies are available for c omparison at the time of dictation. The examination is degraded by portable technique and apical lord otic positioning. The heart is enlarged note atherosclerotic calcification of the thoracic aorta. The pulmonary vasculature is noncongested. Chronic interstitial thickening is similar to previous. There is mild bibasilar scarring/atelectasis. The lungs and pleural spaces are otherwise clear. No pneumot horax is seen. The skeletal structures are osteopenic. The bony thorax is grossly intact. IMPRESSION: Cardiomegaly with no acute cardiopulmonary abnormality identified. ACT 112: Negative or not required by law. Electronically signed by: Sung Jose M.D. 08/13/2022 2:00 PM
[2022-08-13] MEDS ORDERED: ATROPINE SULFATE 0.1 MG/ML 10ML SYR IV ONE (14:03)
[2022-08-13] MEDS ORDERED: AMIODARONE / D5W 150 MG/100 ML BAG IV STA (14:51)
[2022-08-13] MEDS ORDERED: AMIODARONE IV BOLUS & DRIP IV STA (14:51)
[2022-08-13] MEDS ORDERED: 0.2 MICRON FILTER SET 1 EACH IV STA (14:51)
[2022-08-13] MEDS ORDERED: STAT IV Infusion **Titration per Protocol STA (14:51)
[2022-08-13 14:53] LABS: Magnesium 1.5 mg/dl (1.7-2.4)
[2022-08-13 14:59] LABS: Troponin I High Sensitivity 7.1 pg/ml (0-14)
[2022-08-13] MEDS ORDERED: MAGNESIUM SULFATE / D5W 1 GM/100 ML BAG IV STA (15:01)
[2022-08-13] MEDS ORDERED: AMIODARONE / D5W 360 MG/200 ML BAG IV ONE (15:06)
[2022-08-13 15:25] LABS: Thyroid Stimulating Hormone 4.829 uIu/ml (0.300-4.500)
--- NOTE | 2022-08-13 15:42 | Orthopedic Consultation ---
Date of Consultation August 13, 2022 Assessment & Plan (1) Closed right hip fracture: 87-year-old female with closed, acute, impacted, angulated right femoral neck fracture Recommended to treat operatively with right hip hemiarthroplasty. Scheduled for OR tomorrow with Dr West pending cardiac clearance. Discussed with patient who was in agreement -Patient being admitted to medicine service -Consent will be obtained -Non weight bearing right leg -Pain control per medicine service -NPO after midnight -Hold any anticoagulants -Intra-op infection prophylaxis: 2grams Cefazolin -Obtain medical and cardiac clearance -IV LR fluids -Cath in place -Clip and Prep right hip, patient is allergic to iodine -TEDS/foot pumps non-operative leg intra-op History of Present Illness Reason for Consultation: right hip fracture History of Present Illness Cathleen is an 87-year-old female with past medical history significant for hypertension, hyperlipidemia, hypothyroidism, chronic kidney disease, A-fib who presented to the emergency department today after she sustained a fall that she reported happened around 11:00 this morning. She says that she got dizzy and fell. She believes that she fell on her right side. Most of her pain is localized at her right hip. She denies any pain in her knee, ankle or foot. She denies any previous injuries or surgeries to her right hip. She is in a considerable amount of pain. Pain medication is somewhat helping her. She denies any numbness or tingling in her right leg. She denies any metal allergies. She is allergic to iodine. She denies being on any blood thinners. Allergies Allergy/AdvReac Type Severity Reaction Status Date / Time atenolol Allergy Unknown Verified 06/25/22 13:44 chlorthalidone Allergy Unknown Verified 06/25/22 13:44 enalapril Allergy Unknown Verified 06/25/22 13:44 iodine Allergy Unknown Verified 06/25/22 13:44 shellfish derived Allergy Unknown Verified 06/25/22 13:44 Sulfa (Sulfonamide Allergy Unknown Verified 06/25/22 13:44 Antibiotics) amoxicillin [From Augmentin] Allergy Nausea and Verified 06/25/22 13:44 vomitting Beta-Blockers Allergy Verified 06/25/22 13:44 (Beta-Adrenergic Bloc clavulanic acid Allergy Verified 06/25/22 13:44 [From Augmentin] enalaprilat [From Vasotec] Allergy Verified 03/13/23 13:44 naproxen [From Aleve] Allergy Hives with Verified 06/25/22 13:44 throat swelling. Home Medications Medication Instructions Recorded Confirmed Type allopurinol 300 mg tablet 300 mg PO .COMPLEX 10/27/18 08/13/22 History multivitamin 1 tab PO DAILY 10/27/18 08/13/22 History sulindac 200 mg tablet 200 mg PO DAILY #60 tabs 10/27/18 08/13/22 Rx cholecalciferol (vitamin D3) 25 2,000 units PO DAILY 08/14/19 08/13/22 History mcg (1,000 unit) tablet amlodipine 5 mg tablet See Rx Instructions .Route 10/09/21 08/13/22 Rx .COMPLEX #90 tabs sertraline 50 mg tablet See Rx Instructions .Route 10/09/21 08/13/22 Rx .COMPLEX #135 tabs levothyroxine 88 mcg tablet 88 mcg PO DAILY #90 tabs 03/22/22 08/13/22 Rx Patient History Medical History (Updated 08/13/22 @ 14:23 by Stuart Lebron MD) Benign hypertension with chronic kidney disease, stage III CKD (chronic kidney disease), stage III Depression Gout Hiatal hernia History of upper respiratory infection Hyperlipidemia Hypertension Hypothyroidism Macular degeneration Osteoporosis, senile Vitamin D deficiency Surgical History History of surgical removal of skin lesion skin tag up to 15 S/P cataract surgery Family History Father , age 79 Stroke syndrome Mother , age 83 Cardiac failure Brother Lung cancer Denies family history of Ovarian cancer Prostate cancer Myocardial infarction Breast cancer Colorectal cancer Social History Smoking Status: Never smoker Tobacco Type: Cigarettes Cigarettes Per Day: 5-6 CIGGERETTES A DAY; Second Hand Exposure: No; Do You Dip or Chew Tobacco: No; Hx Alcohol Use: Yes Hx Substance Use: No Preferred Language: Bolivian Communication Ability: Effective Visual Impairment: No Limitations Hearing Ability: Use of Hearing Aid [place] Opener Required: No Beliefs That Will Affect Care: None marital status: / Current Living Situation: Alone current occupational status: retired Feels Safe at Home: Yes Childhood Exposure to Second-Hand Smoke: No Diet: regular Diet Comment: regular caffeine: Yes during the past year weight has: remained stable Dental Care, Regularly: No Physical Activity Frequency: Daily Seatbelt Use: always Sunscreen Use: No Review of Systems Review of Systems: Per HPI Physical Exam Physical Exam: General: Patient is sitting slightly up in the bed awake alert and oriented Right hip: Right lower extremity is shortened and externally rotated when compared to her left lower extremity. Patient is tender to palpate over her right hip and slightly down her thigh. There is no ecchymosis, hematoma or breaks in the skin. Patient is nontender to palpate her knee, ankle nor foot. She is able to slightly bend her knee but is limited due to pain in her hip. She has full pain-free range of motion in her ankle and all 5 digits. 2+ dorsal pedal pulse palpable. She is neurovascularly intact distally. Results & Data Vital Signs (Past 12 Hours) Vital Signs Temp Pulse Resp BP Pulse Ox O2 Del Method 08/13/22 14:50 73 12 99 08/13/22 14:40 81 15 97 08/13/22 14:33 84 17 99 08/13/22 14:33 173/98 H 08/13/22 14:30 83 13 99 08/13/22 14:20 78 18 99 08/13/22 14:10 82 17 99 08/13/22 14:00 86 13 99 08/13/22 13:50 97 H 22 97 08/13/22 13:40 94 H 16 98 08/13/22 13:31 94 H 16 99 08/13/22 13:31 143/102 H 08/13/22 13:30 86 18 96 08/13/22 13:24 131/101 H 08/13/22 13:24 102 H 18 98 08/13/22 13:20 86 21 97 08/13/22 13:10 98 H 16 98 08/13/22 13:00 109 H 20 98 08/13/22 12:50 72 15 08/13/22 12:40 78 19 93 08/13/22 12:33 78 15 08/13/22 12:10 65 17 93 08/13/22 12:00 64 21 93 08/13/22 12:00 144/71 H 08/13/22 11:50 64 16 96 08/13/22 11:48 63 13 97 08/13/22 11:52 69 08/13/22 11:48 36.5 C 15 95 Room Air 08/13/22 11:48 36.5 C 64 15 145/72 H 95 Room Air Diagnostic Findings 2 view right hip x-rays show acute, mildly impacted, displaced and angulated transcervical fracture of the right femur. No dislocation. Mild soft tissue swelling lateral to the right hip. D mineralization appearance of the bones no meredith as well as mild to moderate osteophytosis of the hips
[2022-08-13] MEDS ORDERED: MAGNESIUM HYDROXIDE SUSP 30 ML UDC PO PRN (15:55)
[2022-08-13] MEDS ORDERED: MAGNESIUM SULFATE / D5W 1 GM/100 ML BAG IV ONE (15:55)
[2022-08-13] MEDS ORDERED: HYDROmorphone INJ 0.5 MG/0.5 ML SYR IV PRN (15:55)
[2022-08-13] MEDS ORDERED: bisacodyL 10 MG SUPP PR PRN (15:55)
[2022-08-13] MEDS ORDERED: NALOXONE HCL 0.4 MG/1 ML VIAL/CARP IV PRN (15:55)
[2022-08-13 16:06] LABS: T4 Free Thyroxine 1.08 ng/dl (0.61-1.60)
--- NOTE | 2022-08-13 16:09 | XCELERA ---
[id number] [id number]
--- NOTE | 2022-08-13 16:55 | Cardiology Consultation ---
Date of Consultation August 13, 2022 Assessment & Plan (1) Closed right hip fracture: (2) SSS (sick sinus syndrome): (3) Afib: (4) Sinus node dysfunction: Plan 1. Hip fracture: This is from a fall, however it appears that the fall was due to intermittent dizziness presumably associated with sinus pauses. 2. Tachybradycardia syndrome: She has evidence of tachybradycardia syndrome with periods of atrial fibrillation with somewhat rapid heart rate (but not fast enough to cause symptoms) and periods of bradycardia following conversion to sinus rhythm. Some these pauses are long enough that with standing I would not be surprised if she would have dizziness. The pauses are likely explanation for her fall. 3. Atrial fibrillation: She does have brief episodes of atrial fibrillation, the rate is somewhat fast during atrial fibrillation although she is asymptomatic and I doubt that caused her fall. Treating her atrial fibrillation would likely eliminate the postconversion pauses, however she should have a pacemaker to allow more appropriate treatment of her atrial arrhythmia. I am therefore starting intravenous amiodarone. Over the long run she will need anticoagulation but I would wait until after a pacemaker and surgery for her leg fracture. 4. Sinus node dysfunction: She has postconversion pauses consistent with a prolonged sinus node recovery time, this is most likely a component of tachybradycardia syndrome and does indicate a need for a pacemaker given her dizziness and now her fall. Amiodarone could exacerbate sinus node dysfunction but her sinus rhythm other than postconversion is quite stable, and hopefully we can eliminate the atrial fibrillation and therefore the sinus pauses. Once the pacemaker is in place we can evaluate the ongoing need for amiodarone but it may be a reasonable option at her age. 5. Leukocytosis: She does have a markedly elevated white count, there does not appear to be any sign of infection and this is presumably due to stress. We will follow-up with this before her pacemaker. I will make arrangements for pacemaker implantation tomorrow morning, I discussed this with her and she is agreeable. History of Present Illness Reason for Consultation: Tachybradycardia syndrome History of Present Illness This is an 87-year-old woman with a history of osteoarthritis, hyperlipidemia, hypothyroidism, hypertension and chronic kidney disease. To my knowledge she does not have a history of cardiovascular disease. She has however have frequent episodes of lightheadedness and dizziness over the last several weeks. She had an episode of dizziness while standing today and fell and fractured her right femur. At the time she was walking to her closet and does not feel that she lost consciousness. She has had no presyncope or syncope to her knowledge. In the emergency room she was noted to have intermittent atrial fibrillation with long postconversion pauses. She has however been asymptomatic in the emergency room. She has not had any exertional chest discomfort and does not have significant shortness of breath. Allergies Allergy/AdvReac Type Severity Reaction Status Date / Time atenolol Allergy Unknown Verified 06/25/22 13:44 chlorthalidone Allergy Unknown Verified 06/25/22 13:44 enalapril Allergy Unknown Verified 06/25/22 13:44 iodine Allergy Unknown Verified 06/25/22 13:44 shellfish derived Allergy Unknown Verified 06/25/22 13:44 Sulfa (Sulfonamide Allergy Unknown Verified 06/25/22 13:44 Antibiotics) amoxicillin [From Augmentin] Allergy Nausea and Verified 06/25/22 13:44 vomitting Beta-Blockers Allergy Verified 06/25/22 13:44 (Beta-Adrenergic Bloc clavulanic acid Allergy Verified 06/25/22 13:44 [From Augmentin] enalaprilat [From Vasotec] Allergy Verified 06/25/22 13:44 naproxen [From Aleve] Allergy Hives with Verified 06/25/22 13:44 throat swelling. Home Medications Medication Instructions Recorded Confirmed Type allopurinol 300 mg tablet 300 mg PO .COMPLEX 10/27/18 08/13/22 History multivitamin 1 tab PO DAILY 10/27/18 08/13/22 History sulindac 200 mg tablet 200 mg PO DAILY #60 tabs 10/27/18 08/13/22 Rx cholecalciferol (vitamin D3) 25 2,000 units PO DAILY 08/14/19 08/13/22 History mcg (1,000 unit) tablet amlodipine 5 mg tablet See Rx Instructions .Route 10/09/21 08/13/22 Rx .COMPLEX #90 tabs sertraline 50 mg tablet See Rx Instructions .Route 10/09/21 08/13/22 Rx .COMPLEX #135 tabs levothyroxine 88 mcg tablet 88 mcg PO DAILY #90 tabs 03/22/22 08/13/22 Rx Patient History Medical History (Updated 08/13/22 @ 16:49 by Ronaldo Sam MD) Benign hypertension with chronic kidney disease, stage III CKD (chronic kidney disease), stage III Depression Gout Hiatal hernia History of upper respiratory infection Hyperlipidemia Hypertension Hypothyroidism Macular degeneration Osteoporosis, senile Vitamin D deficiency Surgical History History of surgical removal of skin lesion skin tag up to 15 S/P cataract surgery Family History Father , age 79 Stroke syndrome Mother , age 83 Cardiac failure Brother Lung cancer Denies family history of Ovarian cancer Prostate cancer Myocardial infarction Breast cancer Colorectal cancer Social History Smoking Status: Never smoker Tobacco Type: Cigarettes Cigarettes Per Day: 5-6 CIGGERETTES A DAY; Second Hand Exposure: No; Do You Dip or Chew Tobacco: No; Hx Alcohol Use: Yes Hx Substance Use: No Preferred Language: Surinamese Communication Ability: Effective Visual Impairment: No Limitations Hearing Ability: Use of Hearing Aid 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 She is resting in bed. HEENT: Unremarkable Neck: No jugular venous distention, carotid pulses are normal and equal bilaterally without bruits. Pulmonary: Clear to auscultation bilaterally. Cardiac: Regular rhythm with no murmur, gallop or rub. Abdomen: Soft, nontender with normal bowel sounds. Extremities: No edema. Distal pulses intact. Neurologic: No focal findings. Gait was not tested Skin: No rash, ecchymoses or petechiae. Results & Data Vital Signs (Past 12 Hours) Vital Signs Temp Pulse Resp BP Pulse Ox O2 Del Method 08/13/22 16:10 59 L 14 98 08/13/22 16:00 60 13 98 08/13/22 16:00 146/65 H 08/13/22 15:50 57 L 13 99 08/13/22 15:40 63 14 99 08/13/22 15:30 75 15 99 08/13/22 15:30 162/69 H 08/13/22 15:20 74 19 94 08/13/22 15:10 79 14 96 08/13/22 15:00 71 15 98 08/13/22 15:00 148/74 H 08/13/22 14:50 73 12 99 08/13/22 14:40 81 15 97 08/13/22 14:33 84 17 99 08/13/22 14:33 173/98 H 08/13/22 14:30 83 13 99 08/13/22 14:20 78 18 99 08/13/22 14:10 82 17 99 08/13/22 14:00 86 13 99 08/13/22 13:50 97 H 22 97 08/13/22 13:40 94 H 16 98 08/13/22 13:31 94 H 16 99 08/13/22 13:31 143/102 H 08/13/22 13:30 86 18 96 08/13/22 13:24 131/101 H 08/13/22 13:24 102 H 18 98 08/13/22 13:20 86 21 97 08/13/22 13:10 98 H 16 98 08/13/22 13:00 109 H 20 98 08/13/22 12:50 72 15 08/13/22 12:40 78 19 93 08/13/22 12:33 78 15 08/13/22 12:10 65 17 93 08/13/22 12:00 64 21 93 08/13/22 12:00 144/71 H 08/13/22 11:50 64 16 96 08/13/22 11:48 63 13 97 08/13/22 11:52 69 08/13/22 11:48 36.5 C 15 95 Room Air 08/13/22 11:48 36.5 C 64 15 145/72 H 95 Room Air Laboratory Results Cardiac Enzymes 08/13/22 08/13/22 Range/Units 12:20 13:28 AST 19 (13-39) U/L Troponin I High Sens 7.1 Cancelled (0-14) pg/ml Coagulation 08/13/22 Range/Units 12:20 PT 11.1 (9.0-12.0) Seconds APTT 26.4 (21.0-31.0) Seconds CBC 08/13/22 Range/Units 12:20 WBC 24.97 H (4.8-10.8) K/ul RBC 3.99 L (4.20-5.40) M/uL Hgb 12.6 (12.0-16.0) g/dl Hct 36.6 L (37.0-47.0) % Plt Count 562 H (130-400) K/uL Neut # (Auto) 22.81 H (1.40-6.50) K/uL Lymph # (Auto) 1.05 L (1.2-3.4) K/uL Braxton # (Auto) 0.81 H (0.11-0.59) K/uL Eos # (Auto) 0.06 (0-0.50) K/uL Baso # (Auto) 0.05 (0-0.2) K/uL Comprehensive Metabolic Panel 08/13/22 Range/Units 12:20 Sodium 138 (136-145) mmol/L Potassium 3.7 (3.5-5.1) mmol/L Chloride 101 (98-107) mmol/L Carbon Dioxide 27 (21-32) mmol/L BUN 17 (6-23) mg/dl Creatinine 0.89 (0.6-1.2) mg/dl Glucose 113 H (70-99(Fasting)) mg/dl Calcium 9.4 (8.6-10.3) mg/dl AST 19 (13-39) U/L ALT 11 (7-52) U/L Alkaline Phosphatase 73 (34-104) U/L Total Protein 6.2 (6.0-8.3) gm/dl Albumin 3.9 (3.4-5.0) gm/dl Intake and Output 08/13/22 08/13/22 08/13/22 06:59 14:59 22:59 Intake Total 600 / 700 100 / 700 Balance 600 / 700 100 / 700 Intake: IV 600 / 700 100 / 700 Acetaminophen 1,000 mg In 100 100 / 100 ml @ 400 mls/hr IV NOW STA Rx#: [id number] Amiodarone / D5w 150 mg In 100 100 / 100 ml @ 600 mls/hr IV NOW STA Rx#: [id number] Sodium Chloride 0.9% 1000ML 500 500 / 500 ml @ 999 mls/hr IV .Q31M ONE Rx#:[id number] Other: Weight 68 kg Weight Measurement Method Built in [facility] Patient Weight 08/14/22 06:59 Weight 68 kg Diagnostic Findings Telemetry: Multiple pauses of 4 seconds or longer, post conversion from atrial fibrillation. Paroxysmal atrial fibrillation was somewhat rapid heart rate. Following conversion of the atrial fibrillation she has a pause and then resumption of sinus rhythm after a period of bradycardia. PG Care Time/CCT Total # of Minutes Spent Total Time Spent with Patient: Total time spent is greater than 50% in coordination of care (as documented) at patient's floor/unit and/or counseling patient: Coding Level of Care Code 48657 INT INP/OBS CARE 375MIN Diagnoses Closed right hip fracture S72.001A SSS (sick sinus syndrome) I49.5 Afib I48.0 Atrial fibrillation type: paroxysmal Sinus node dysfunction I49.5 (3) Afib Atrial fibrillation type: paroxysmal Qualified Code(s): I48.0 - Paroxysmal atrial fibrillation
[2022-08-13] MEDS: PLASMA-LYTE A 1,000 ML IV SCH (17:50)
--- NOTE | 2022-08-13 18:06 | Progress Notes ---
The patient is 87. She got dizzy, fell and broke her right hip. No prior history of right hip injur ies. She is seen and evaluated in conjunction with the physician's assistant signal maintainer. For further details, refer to their dictation. We have seen and evaluated the patient, I am in agreement with the plan. Her allergies are noted and particularly an ALLERGY TO IV IODINE. She has no issues with metal aller gies, bleeding, blood clots, heart attacks or MRSA infections. Her vitals are noted. She is stable. White count is 25,000, likely secondary to stress; hemoglobin 13, hematocrit 37, platelets are 562. The remainder of her labs, PRP and urinalysis are noted. PT/INR normal. Radiographs of the right hip show a displaced transcervical right femoral neck fracture. We will go ahead and repeat a latera l x-ray for further clarification. Report noted. Reports of the head and spine CTs are reviewed. O n exam, the right hip is tender to palpation with positive pain on log rolling. Her thigh, knee and lower leg are nontender. She moves both upper extremities freely and responds to questions appropria tely. She can bend her left knee and hip without any pain on the left side. Her DP and PT pulses ar e 1+. Foot is warm with capillary refill less than 2 seconds. There are no open wounds and she has 5-5-/5 toe and ankle plantar flexion, dorsiflexion, inversion and eversion strength. The plan is for a cemented right hip hemiarthroplasty. She and both of her daughters are educated about the treatme nt options. We talked about risks, benefits, rehab and recovery. An informed consent was obtained. She will be n.p.o. after midnight. We will plan on surgery tomorrow afternoon. She will have her p acemaker done at about 11. N.p.o. after midnight. Preoperative antibiotics. Job ID: [id number]
--- NOTE | 2022-08-13 18:17 | Anesthesiology Consultation ---
Date of Service August 13, 2022 Assessment & Plan Chart Review Chart Review: Acceptable Risk for Surgery Consults Requested none ASA ASA3 Proposed Anesthesia Anesthesia Type: General Risk / Benefits Reviewed With: PT / POA / Parent / Guardian, Accepts Plan and Informed Consent Obtained Additional Comments: pt prefer geta. consent on chart. pacer to be placed prior to [facility] hip surg History Surgery Operation Date: 08/14/22 09:30 Proposed Procedures p Right Hip Hemiarthroplasty - Stuart West MD Operation Date: 08/14/22 11:00 Proposed Procedures p Pacer with A/V Leads (Dual) - Ronaldo Sam MD Height/Weight Height: 5 ft Weight: 68 kg Allergies Allergy/AdvReac Type Severity Reaction Status Date / Time atenolol Allergy Unknown Verified 06/25/22 13:44 chlorthalidone Allergy Unknown Verified 06/25/22 13:44 enalapril Allergy Unknown Verified 06/25/22 13:44 iodine Allergy Unknown Verified 06/25/22 13:44 shellfish derived Allergy Unknown Verified 06/25/22 13:44 Sulfa (Sulfonamide Allergy Unknown Verified 06/25/22 13:44 Antibiotics) amoxicillin [From Augmentin] Allergy Nausea and Verified 06/25/22 13:44 vomitting Beta-Blockers Allergy Verified 06/25/22 13:44 (Beta-Adrenergic Bloc clavulanic acid Allergy Verified 06/25/22 13:44 [From Augmentin] enalaprilat [From Vasotec] Allergy Verified 06/25/22 13:44 naproxen [From Aleve] Allergy Hives with Verified 06/25/22 13:44 throat swelling. Medications Home Medications Medication Instructions Recorded Confirmed Last Taken allopurinol 300 mg tablet 300 mg PO .COMPLEX 10/27/18 08/13/22 08/12/22 multivitamin 1 tab PO DAILY 10/27/18 08/13/22 08/12/22 sulindac 200 mg tablet 200 mg PO DAILY #60 tabs 10/27/18 08/13/22 08/12/22 cholecalciferol (vitamin D3) 25 2,000 units PO DAILY 08/14/19 08/13/22 08/12/22 mcg (1,000 unit) tablet amlodipine 5 mg tablet See Rx Instructions .Route 10/09/21 08/13/22 08/12/22 .COMPLEX #90 tabs sertraline 50 mg tablet See Rx Instructions .Route 10/09/21 08/13/22 08/12/22 .COMPLEX #135 tabs levothyroxine 88 mcg tablet 88 mcg PO DAILY #90 tabs 03/22/22 08/13/22 08/12/22 Active Medications Generic Name Dose Route Start Last Admin Trade Name Freq PRN Reason Stop Dose Admin Hydromorphone HCl 0.25 mg 08/13/22 15:55 08/13/22 18:07 Hydromorphone Inj 0.5 Mg/0.5 Ml Syr IV 08/27/22 15:54 0.25 mg Q4H PRN Administration Pain (1,2,3,4,5) & Pre PT Amiodarone HCl/Dextrose 360 mg in 200 mls @ 33.333 mls/hr 08/13/22 15:06 08/13/22 15:43 Nexterone / D5w IV 08/13/22 21:05 1 mg/min ONE ONE 33.3 mls/hr Administration 1 MG/MIN Parenteral Electrolytes 1,000 mls @ 100 mls/hr 08/13/22 16:00 08/13/22 17:50 Plasma-Lyte A Ph 7.4 IV 09/12/22 15:59 100 mls/hr .Q10H ASTRID Administration Morphine Sulfate 2 mg 08/13/22 12:03 08/13/22 12:48 Morphine Sulfate 2 Mg/Ml Carp IV 08/27/22 12:02 2 mg Q15M PRN Administration Pain NPO Last Intake of Fluids Comment: advised NPO p MN Last Intake of Solids Comment: advised NPO p MN Past Medical History Medical History (Updated 08/13/22 @ 18:32 by Sung Rivera MD) Afib Benign hypertension with chronic kidney disease, stage III CKD (chronic kidney disease), stage III Closed right hip fracture Depression Gout Hiatal hernia History of upper respiratory infection Hyperlipidemia Hypertension Hypothyroidism Macular degeneration Osteoporosis, senile Sinus node dysfunction SSS (sick sinus syndrome) pacer planned 08/13/22 Vitamin D deficiency Exercise / Class Metabolic Activity III < 4 Walking/Shop/Light housework Past Family History Family History Father , age 79 Stroke syndrome Mother , age 83 Cardiac failure Brother Lung cancer Denies family history of Ovarian cancer Prostate cancer Myocardial infarction Breast cancer Colorectal cancer Past Surgical History Surgical History (Updated 08/13/22 @ 18:28 by Marleny Whelan DO) History of surgical removal of skin lesion skin tag up to 15 History of tonsillectomy S/P cataract surgery Past Anesthesia History No Hx of Anesthesia Complications and No Family Hx of Anesthesia Complications History of PONV No Hx of PONV and No Hx of Motion Sickness Social History Smoking Status: Never smoker Smoking cigarettes per day: 5-6 CIGGERETTES A DAY Do You Dip or Chew Tobacco: No Hx Alcohol Use: Yes Hx Substance Use: No Physical Exam Vital Signs Last Vital Signs Temp 36.8 C 08/13/22 17:14 Pulse 63 08/13/22 17:14 Resp 16 08/13/22 17:14 BP 160/77 H 08/13/22 17:14 Pulse Ox 97 08/13/22 17:14 O2 Del Method Nasal Cannula 08/13/22 17:14 O2 Flow Rate 2 08/13/22 17:14 ENMT Mouth: + dentition abnormality (8 teeth on bottom) and + dentures (upper full plate); no TMJ abnormality Thyromental Distance: > or= 3.5 Finger Breadths Mallampati Class: II Neck normal visual inspection and trachea midline; neck extension not limited Respiratory normal respiratory effort Auscultation: lungs clear to auscultation bilaterally Cardiovascular Rate/Rhythm: regular rate and regular rhythm Heart Sounds: no murmur Musculoskeletal Spine: normal cervical ROM Extremities: full ROM of extremities Neurologic moves all extremities Psychiatric Orientation: alert and oriented x 3 Testing Laboratory Results 08/13/22 12:20 08/13/22 12:20 PT 11.1 Seconds (9.0-12.0) 08/13/22 12:20 INR 1.0 (0.9-1.1) 08/13/22 12:20 APTT 26.4 Seconds (21.0-31.0) 08/13/22 12:20 Urine Color Yellow 08/13/22 13:20 Urine Appearance Clear (Clear) 08/13/22 13:20 Urine pH 7.5 (4.5-7.5) 08/13/22 13:20 Ur Specific Collins 1.009 (1.000-1.030) 08/13/22 13:20 Urine Protein Negative (Negative) 08/13/22 13:20 Urine Glucose (UA) Negative (Negative) 08/13/22 13:20 Urine Ketones Negative (Negative) 08/13/22 13:20 Urine Nitrite Negative (Negative) 08/13/22 13:20 Ur Leukocyte Esterase Trace (Negative) H 08/13/22 13:20 Urine WBC (Auto) 1-5 /hpf (0-5) 08/13/22 13:20 Urine RBC (Auto) 0-4 /hpf (0-4) 08/13/22 13:20 U Hyaline Cast (Auto) 1-5 /lpf (0-5) 08/13/22 13:20 U Epithel Cells (Auto) >30 /lpf (0-5) H 08/13/22 13:20 Urine Bacteria (Auto) Negative (Negative) 08/13/22 13:20 Blood Type B Positive 08/13/22 16:05 Antibody Screen NEGATIVE 08/13/22 16:05 Electrocardiogram Date: 08/13/22 Findings: + NSR @ (67) and + T wave inversion Chest X-Ray Date: 08/13/22 Findings: + NAD and + cardiomegaly Echocardiogram Date: 08/13/22 EF: 55-60 LV Function: normal RWMA: + none Valvular Disease: + no significant valvular disease Cervical Spine Date: 08/13/22 CT cervical spine=no fx
[2022-08-13] MEDS ORDERED: AMIODARONE / D5W 360 MG/200 ML BAG IV SCH (21:00)
[2022-08-13] MEDS: HYDROmorphone INJ 0.5 MG/0.5 ML SYR IV PRN (22:35)
[2022-08-14] MEDS: PLASMA-LYTE A 1,000 ML IV SCH ×2 (03:12→18:07)
[2022-08-14] MEDS: HYDROmorphone INJ 0.5 MG/0.5 ML SYR IV PRN ×2 (03:12→08:30)
[2022-08-14] MEDS: LEVOTHYROXINE SODIUM 88 MCG TABLET PO SCH (03:14)
[2022-08-14] MEDS ORDERED: ceFAZolin 2000MG 2,000 MG/15 ML SYR IV SCH (06:00)
[2022-08-14 06:33] LABS: Basophils # (auto) 0.03 K/uL (0-0.2); Basophils % (auto) 0.2 %; Eosinophils # (auto) 0.09 K/uL (0-0.50); Eosinophils % (auto) 0.6 %; Hematocrit (blood only) 34.8 % (37.0-47.0); Hemoglobin 11.6 g/dl (12.0-16.0); Immature Granulocytes # (auto) 0.08 K/uL (0.01-0.20); Immature Granulocytes % (auto) 0.5 %; Lymphocytes # (auto) 0.71 K/uL (1.2-3.4); Lymphocytes % (auto) 4.8 %; Mean Corpuscular Hemoglobin 31.2 pg (25.0-34.0); Mean Corpuscular Hgb Conc 33.3 g/dL (32.0-36.0); Mean Corpuscular Volume 93.5 fL (80.0-100.0); Mean Platelet Volume 9.9 fL (9.4-12.4); Monocytes # (auto) 0.75 K/uL (0.11-0.59); Neutrophils # (auto) 13.25 K/uL (1.40-6.50); Neutrophils % (auto) 88.9 %; Platelet Count 482 K/uL (130-400); RDW Coefficient of Variation 13.3 % (11.5-14.5); RDW Standard Deviation 45.4 fL (36.4-46.3); Red Blood Count 3.72 M/uL (4.20-5.40); White Blood Count 14.91 K/ul (4.8-10.8)
[2022-08-14 06:50] LABS: BUN Creatinine Ratio 15.3 (10-20); Calcium 8.5 mg/dl (8.6-10.3); Creatinine Clr Calc Pharmacy 34.1 ml/min; Est GFR (African American) 59.7 ml/min; Est GFR (Non-African American) 51.5 ml/min; Magnesium 1.9 mg/dl (1.7-2.4); Potassium 3.5 mmol/L (3.5-5.1)
[2022-08-14 06:55] LABS: Partial Thromboplastin Ratio 1.1; Prothrombin Time 11.2 Seconds (9.0-12.0)
[2022-08-14] MEDS ORDERED: BACITRACIN OINT 0.9 GM PKT ONE (07:01)
[2022-08-14] MEDS ORDERED: WATER, STERILE FOR INJ 10 ML VIAL ONE (07:01)
[2022-08-14] MEDS ORDERED: LIDOCAINE 1% LOCAL 20 ML VIAL ONE ×2 (07:01→14:54)
[2022-08-14] MEDS ORDERED: BUPIVACAINE 0.25% PF 30 ML VIAL ONE (07:02)
[2022-08-14] MEDS ORDERED: VANCOMYCIN HCL 1000MG/20ML VIAL ONE (07:02)
[2022-08-14] MEDS: allopurinoL 300 MG TAB PO SCH (08:34)
[2022-08-14] MEDS: SERTRALINE HCL 50 MG TABLET PO SCH (08:34)
[2022-08-14] MEDS: MULTIVITAMIN TAB PO SCH (08:35)
[2022-08-14] MEDS: CHOLECALCIFEROL 1,000 UNITS 25 MCG TAB PO SCH (08:35)
[2022-08-14] MEDS: amLODIPine BESYLATE 5 MG TAB PO SCH (08:35)
--- NOTE | 2022-08-14 08:45 | Hospitalist Progress Note ---
Date of Service August 14, 2022 Assessment & Plan (1) Pre-syncope: Plan: acute right hip fracture moderate risk Prior fall in dec, frequent episodes of lightheadedness/dizziness which come on suddenly in the preceding weeks - Ortho consulted. Status post ORIF Dr. Stuart West 08/14/2022 apixaban will utilize postoperatively for DVT prevention and for A-fib Presyncope,acute on chronic suspect due to pauses. New Afib with conversion pauses 3-4 seconds high risk the patient EKG normal sinus rhythm with sinus arrhythmia, T wave inversion appreciated in V3 no territorial ST segment changes with QTc 435. Last baseline 2013, NSR without any acute abnormalities Anticipate pacer placement 08/14. continues on amiodarone, may slow sinus rate but likely to help prevention conversion pauses. - Defer anticoagulation for afib until post-hip replacement Pacer pads at bedside, atropine at bedside. - Echo wnl - [id number] risk of 4, patient should be anticoagulated post operatively Recommend indefinite anticoagulation due A-fib with [id number] greater than 3. Defer anticoagulation preop due to bleeding risk and anticipate DOAC postop - Optimize electrolytes Hypertension Previously well controlled, continue amlodipine CKD 3 chronic and stable Has declined follow-up with nephrology in the past Osteoarthritis cautioned on nsaid use with renal failure Chronic sulindac use, aware of side effects but continued due to quality of life improvement as outpatient Temporarily held Hypothyroidism Continue Synthroid TSH pending DVT prophylaxis: SCDs preop CODE STATUS: DNR/DNI, discussed with patient at bedside (2) Closed right hip fracture: (3) Hypothyroidism: (4) Hypertension: (5) Hyperlipidemia: (6) Gout: (7) Depression: (8) CKD (chronic kidney disease), stage III: (9) Afib: Admission and Anticipated Discharge Date Admission Date: August 13, 2022 Subjective Patient with right hip fracture after fall which was felt to be secondary to compensatory pause after atrial fibrillation scheduled for both a permanent pacemaker placement and right hip fracture repair on 08/14/2022 Patient was seen preoperatively she was without significant distress Physical Exam Physical Exam: Patient's own cardiac exam was regular when I examined her there was a slight systolic murmur her lungs were clear her leg good distal pulses and sensation intact on the right side she was tender to movement Results & Data Results & Data Vital Signs (Past 12 Hours) Vital Signs Temp Pulse Pulse Resp BP Pulse Ox O2 Del Method 08/14/22 07:35 98.2 F 65 17 147/79 H 96 Nasal Cannula 08/14/22 03:00 97.9 F 58 L 18 149/71 H 97 Nasal Cannula 08/13/22 22:58 Nasal Cannula 08/13/22 23:15 53 L 08/13/22 22:31 98.1 F 51 L 18 147/65 H 99 Nasal Cannula O2 Flow Rate 08/14/22 07:35 2 08/14/22 03:00 08/13/22 22:58 2 08/13/22 23:15 08/13/22 22:31 2 Laboratory Results Reviewed CBC Reviewed PRP PG Care Time/CCT Total # of Minutes Spent Total Time Spent with Patient: Total time spent is greater than 50% in coordination of care (as documented) at patient's floor/unit and/or counseling patient: Coding Level of Care Code 20947 SUB INP/OBS CARE 3/50MIN Diagnoses Pre-syncope R55 Closed right hip fracture S72.001A Hypothyroidism E03.9 Hypothyroidism type: acquired Hypertension I10 Hypertension type: essential hypertension Hyperlipidemia E78.5 Hyperlipidemia type: unspecified Gout M10.9 Depression F32.9 CKD (chronic kidney disease), stage III N18.3 Afib I48.0 Atrial fibrillation type: paroxysmal (3) Hypothyroidism Hypothyroidism type: acquired Qualified Code(s): E03.9 - Hypothyroidism, unspecified (4) Hypertension Hypertension type: essential hypertension Qualified Code(s): I10 - Essential (primary) hypertension (5) Hyperlipidemia Hyperlipidemia type: unspecified Qualified Code(s): E78.5 - Hyperlipidemia, unspecified (9) Afib Atrial fibrillation type: paroxysmal Qualified Code(s): I48.0 - Paroxysmal atrial fibrillation
--- NOTE | 2022-08-14 08:53 | XRay Report ---
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 IMPRESSION: Acute transcervical fracture of the right femur again noted with unchanged alignment. ACT 112: Negative or not required by law. The above report was generated using voice recognition software. It may contain grammatical, syntax o r spelling errors. Electronically signed by: Norman Walsh M.D. 08/14/2022 8:23 AM
--- NOTE | 2022-08-14 09:06 | Orthopedic Progress Note ---
Date of Service August 14, 2022 Assessment & Plan (1) Closed right hip fracture: Plan: Patient has an acute, impacted, angulated right femoral neck fracture Anticipation of going to the OR today for right hip hemiarthroplasty with Dr West Patient is going to the OR later this morning for insertion of pacemaker anticipation of hip surgical intervention after this as long as patient remains stable. -Consent in chart and signed by patient and Dr. Douglas and witnessed -Patient has been n.p.o. since midnight -Hold any anticoagulants -Type and screen completed -Intra-op infection prophylaxis: 2grams Cefazolin ordered -Urinary catheter in place -Clip and Prep right hip, patient is allergic to iodine -TEDS/foot pumps non-operative leg intra-op -Continue pain management per primary Present on Admission?: Yes Admission and Anticipated Discharge Date Admission Date: August 13, 2022 Subjective Patient is an 87-year-old female who is a known patient to Dr. West. She has a history of a closed, acute, impacted, angulated right femoral neck fracture and anticipation of going to the OR today. She was seen bedside this morning. Patient is alert and oriented x3. She states she continues to have pain in the right groin. She rates the pain as 7/10 and reports that the nurse had just given her something for the pain. She reports she has not had anything to eat or drink otherwise. She is not having any numbness in the right lower extremity. She denies any previous trauma or injury to this lower extremity. She denies any fever, chills, chest pain or shortness of breath at this time. She is anticipated to be going to the OR this morning for an insertion of a pacemaker. Review of Systems Review of Systems: Please refer to HPI Physical Exam Physical Exam: General: Patient is seated upright in bed alert and oriented x3. Does not appear to be in any distress Musculoskeletal/integumentary: Skin is normal in color and temperature. Negative for ecchymosis. Very little edema. Right lower extremity is shortened and externally rotated. Palpable tenderness in right groin and over the pr oximal femur. Negative tenderness over the knee. Range of motion is limited due to pain in groin. She is able to actively dorsiflex and plantarflex. She is able to flex and extend toes. Calf is soft and nontender sensation is intact over right lower extremity. 2+ dorsal pedal pulse palpable. Results & Data Vital Signs (Past 12 Hours) Vital Signs Temp Pulse Pulse Resp BP Pulse Ox O2 Del Method 08/14/22 07:35 36.8 C 65 17 147/79 H 96 Nasal Cannula 08/14/22 03:00 36.6 C 58 L 18 149/71 H 97 Nasal Cannula 08/13/22 22:58 Nasal Cannula 08/13/22 23:15 53 L 08/13/22 22:31 36.7 C 51 L 18 147/65 H 99 Nasal Cannula O2 Flow Rate 08/14/22 07:35 2 08/14/22 03:00 08/13/22 22:58 2 08/13/22 23:15 08/13/22 22:31 2 Laboratory Results 08/14/22 08/14/22 08/14/22 Range/Units 05:39 05:39 05:39 WBC 14.91 H D (4.8-10.8) K/ul RBC 3.72 L (4.20-5.40) M/uL Hgb 11.6 L (12.0-16.0) g/dl Hct 34.8 L (37.0-47.0) % MCV 93.5 (80.0-100.0) fL MCH 31.2 (25.0-34.0) pg MCHC 33.3 (32.0-36.0) g/dL RDW Std Deviation 45.4 (36.4-46.3) fL RDW Coeff of Fabrice 13.3 (11.5-14.5) % Plt Count 482 H (130-400) K/uL MPV 9.9 (9.4-12.4) fL Immature Gran % (Auto) 0.5 % Neut % (Auto) 88.9 % Lymph % (Auto) 4.8 % [place] % (Auto) 5.0 % Eos % (Auto) 0.6 % Baso % (Auto) 0.2 % Neut # (Auto) 13.25 H (1.40-6.50) K/uL Lymph # (Auto) 0.71 L (1.2-3.4) K/uL [place] # (Auto) 0.75 H (0.11-0.59) K/uL Eos # (Auto) 0.09 (0-0.50) K/uL Baso # (Auto) 0.03 (0-0.2) K/uL Immature Gran # (Auto) 0.08 (0.01-0.20) K/uL PT 11.2 (9.0-12.0) Seconds INR 1.0 (0.9-1.1) APTT 32.0 H (21.0-31.0) Seconds PTT Ratio 1.1 Sodium 137 (136-145) mmol/L Potassium 3.5 (3.5-5.1) mmol/L Chloride 102 (98-107) mmol/L Carbon Dioxide 27 (21-32) mmol/L Anion Gap 8 (3-11) BUN 15 (6-23) mg/dl Creatinine 0.98 (0.6-1.2) mg/dl Est Cr Clr Drug Dosing 34.1 Est GFR ( Amer) 59.7 ml/min Est GFR (Non-Af Amer) 51.5 ml/min BUN/Creatinine Ratio 15.3 (10-20) Glucose 109 H (70-99(Fasting)) mg/dl Calcium 8.5 L (8.6-10.3) mg/dl Magnesium 1.9 (1.7-2.4) mg/dl Total Bilirubin (0.2-1.0) mg/dl AST (13-39) U/L ALT (7-52) U/L Alkaline Phosphatase (34-104) U/L Troponin I High Sens (0-14) pg/ml Total Protein (6.0-8.3) gm/dl Albumin (3.4-5.0) gm/dl Globulin (2.5-4.0) gm/dl Albumin/Globulin Ratio (0.9-2) TSH (0.300-4.500) uIu/ml Free T4 (0.61-1.60) ng/dl Urine Color Urine Appearance (Clear) Urine pH (4.5-7.5) Ur Specific [place] (1.000-1.030) Urine Protein (Negative) Urine Glucose (UA) (Negative) Urine Ketones (Negative) Urine Blood (Negative) Urine Nitrite (Negative) Urine Bilirubin (Negative) Urine Urobilinogen (Negative) Ur Leukocyte Esterase (Negative) Urine WBC (Auto) (0-5) /hpf Urine RBC (Auto) (0-4) /hpf U Hyaline Cast (Auto) (0-5) /lpf U Epithel Cells (Auto) (0-5) /lpf Urine Bacteria (Auto) (Negative) Amiodarone Desmethylamiodarone SARS-CoV-2, RNA, NAAT (NEGATIVE) Blood Type Antibody Screen 08/13/22 08/13/22 08/13/22 Range/Units 16:05 15:13 13:28 WBC (4.8-10.8) K/ul RBC (4.20-5.40) M/uL Hgb (12.0-16.0) g/dl Hct (37.0-47.0) % MCV (80.0-100.0) fL MCH (25.0-34.0) pg MCHC (32.0-36.0) g/dL RDW Std Deviation (36.4-46.3) fL RDW Coeff of Fabrice (11.5-14.5) % Plt Count (130-400) K/uL MPV (9.4-12.4) fL Immature Gran % (Auto) % Neut % (Auto) % Lymph % (Auto) % [place] % (Auto) % Eos % (Auto) % Baso % (Auto) % Neut # (Auto) (1.40-6.50) K/uL Lymph # (Auto) (1.2-3.4) K/uL [place] # (Auto) (0.11-0.59) K/uL Eos # (Auto) (0-0.50) K/uL Baso # (Auto) (0-0.2) K/uL Immature Gran # (Auto) (0.01-0.20) K/uL PT (9.0-12.0) Seconds INR (0.9-1.1) APTT (21.0-31.0) Seconds PTT Ratio Sodium (136-145) mmol/L Potassium (3.5-5.1) mmol/L Chloride (98-107) mmol/L Carbon Dioxide (21-32) mmol/L Anion Gap (3-11) BUN (6-23) mg/dl Creatinine (0.6-1.2) mg/dl Est Cr Clr Drug Dosing Est GFR ( Amer) ml/min Est GFR (Non-Af Amer) ml/min BUN/Creatinine Ratio (10-20) Glucose (70-99(Fasting)) mg/dl Calcium (8.6-10.3) mg/dl Magnesium Cancelled (1.7-2.4) mg/dl Total Bilirubin (0.2-1.0) mg/dl AST (13-39) U/L ALT (7-52) U/L Alkaline Phosphatase (34-104) U/L Troponin I High Sens Cancelled (0-14) pg/ml Total Protein (6.0-8.3) gm/dl Albumin (3.4-5.0) gm/dl Globulin (2.5-4.0) gm/dl Albumin/Globulin Ratio (0.9-2) TSH (0.300-4.500) uIu/ml Free T4 (0.61-1.60) ng/dl Urine Color Urine Appearance (Clear) Urine pH (4.5-7.5) Ur Specific [place] (1.000-1.030) Urine Protein (Negative) Urine Glucose (UA) (Negative) Urine Ketones (Negative) Urine Blood (Negative) Urine Nitrite (Negative) Urine Bilirubin (Negative) Urine Urobilinogen (Negative) Ur Leukocyte Esterase (Negative) Urine WBC (Auto) (0-5) /hpf Urine RBC (Auto) (0-4) /hpf U Hyaline Cast (Auto) (0-5) /lpf U Epithel Cells (Auto) (0-5) /lpf Urine Bacteria (Auto) (Negative) Amiodarone Pending Desmethylamiodarone Pending SARS-CoV-2, RNA, NAAT (NEGATIVE) Blood Type B Positive Antibody Screen NEGATIVE 08/13/22 08/13/22 08/13/22 Range/Units 13:20 12:20 12:20 WBC (4.8-10.8) K/ul RBC (4.20-5.40) M/uL Hgb (12.0-16.0) g/dl Hct (37.0-47.0) % MCV (80.0-100.0) fL MCH (25.0-34.0) pg MCHC (32.0-36.0) g/dL RDW Std Deviation (36.4-46.3) fL RDW Coeff of Fabrice (11.5-14.5) % Plt Count (130-400) K/uL MPV (9.4-12.4) fL Immature Gran % (Auto) % Neut % (Auto) % Lymph % (Auto) % [place] % (Auto) % Eos % (Auto) % Baso % (Auto) % Neut # (Auto) (1.40-6.50) K/uL Lymph # (Auto) (1.2-3.4) K/uL [place] # (Auto) (0.11-0.59) K/uL Eos # (Auto) (0-0.50) K/uL Baso # (Auto) (0-0.2) K/uL Immature Gran # (Auto) (0.01-0.20) K/uL PT (9.0-12.0) Seconds INR (0.9-1.1) APTT (21.0-31.0) Seconds PTT Ratio Sodium 138 (136-145) mmol/L Potassium 3.7 (3.5-5.1) mmol/L Chloride 101 (98-107) mmol/L Carbon Dioxide 27 (21-32) mmol/L Anion Gap 10 (3-11) BUN 17 (6-23) mg/dl Creatinine 0.89 (0.6-1.2) mg/dl Est Cr Clr Drug Dosing Not Reportable Est GFR ( Amer) 67.1 ml/min Est GFR (Non-Af Amer) 57.9 ml/min BUN/Creatinine Ratio 19.1 (10-20) Glucose 113 H (70-99(Fasting)) mg/dl Calcium 9.4 (8.6-10.3) mg/dl Magnesium 1.5 L (1.7-2.4) mg/dl Total Bilirubin 0.5 (0.2-1.0) mg/dl AST 19 (13-39) U/L ALT 11 (7-52) U/L Alkaline Phosphatase 73 (34-104) U/L Troponin I High Sens 7.1 (0-14) pg/ml Total Protein 6.2 (6.0-8.3) gm/dl Albumin 3.9 (3.4-5.0) gm/dl Globulin 2.3 L (2.5-4.0) gm/dl Albumin/Globulin Ratio 1.7 (0.9-2) TSH 4.829 H (0.300-4.500) uIu/ml Free T4 1.08 (0.61-1.60) ng/dl Urine Color Yellow Urine Appearance Clear (Clear) Urine pH 7.5 (4.5-7.5) Ur Specific [place] 1.009 (1.000-1.030) Urine Protein Negative (Negative) Urine Glucose (UA) Negative (Negative) Urine Ketones Negative (Negative) Urine Blood 2+ H (Negative) Urine Nitrite Negative (Negative) Urine Bilirubin Negative (Negative) Urine Urobilinogen Negative (Negative) Ur Leukocyte Esterase Trace H (Negative) Urine WBC (Auto) 1-5 (0-5) /hpf Urine RBC (Auto) 0-4 (0-4) /hpf U Hyaline Cast (Auto) 1-5 (0-5) /lpf U Epithel Cells (Auto) >30 H (0-5) /lpf Urine Bacteria (Auto) Negative (Negative) Amiodarone Desmethylamiodarone SARS-CoV-2, RNA, NAAT (NEGATIVE) Blood Type Antibody Screen 08/13/22 08/13/22 08/13/22 Range/Units 12:20 12:20 12:10 WBC 24.97 H (4.8-10.8) K/ul RBC 3.99 L (4.20-5.40) M/uL Hgb 12.6 (12.0-16.0) g/dl Hct 36.6 L (37.0-47.0) % MCV 91.7 (80.0-100.0) fL MCH 31.6 (25.0-34.0) pg MCHC 34.4 (32.0-36.0) g/dL RDW Std Deviation 43.8 (36.4-46.3) fL RDW Coeff of Fabrice 13.1 (11.5-14.5) % Plt Count 562 H (130-400) K/uL MPV 9.7 (9.4-12.4) fL Immature Gran % (Auto) 0.8 % Neut % (Auto) 91.4 % Lymph % (Auto) 4.2 % [place] % (Auto) 3.2 % Eos % (Auto) 0.2 % Baso % (Auto) 0.2 % Neut # (Auto) 22.81 H (1.40-6.50) K/uL Lymph # (Auto) 1.05 L (1.2-3.4) K/uL [place] # (Auto) 0.81 H (0.11-0.59) K/uL Eos # (Auto) 0.06 (0-0.50) K/uL Baso # (Auto) 0.05 (0-0.2) K/uL Immature Gran # (Auto) 0.19 (0.01-0.20) K/uL PT 11.1 (9.0-12.0) Seconds INR 1.0 (0.9-1.1) APTT 26.4 (21.0-31.0) Seconds PTT Ratio 0.9 Sodium (136-145) mmol/L Potassium (3.5-5.1) mmol/L Chloride (98-107) mmol/L Carbon Dioxide (21-32) mmol/L Anion Gap (3-11) BUN (6-23) mg/dl Creatinine (0.6-1.2) mg/dl Est Cr Clr Drug Dosing Est GFR ( Amer) ml/min Est GFR (Non-Af Amer) ml/min BUN/Creatinine Ratio (10-20) Glucose (70-99(Fasting)) mg/dl Calcium (8.6-10.3) mg/dl Magnesium (1.7-2.4) mg/dl Total Bilirubin (0.2-1.0) mg/dl AST (13-39) U/L ALT (7-52) U/L Alkaline Phosphatase (34-104) U/L Troponin I High Sens (0-14) pg/ml Total Protein (6.0-8.3) gm/dl Albumin (3.4-5.0) gm/dl Globulin (2.5-4.0) gm/dl Albumin/Globulin Ratio (0.9-2) TSH (0.300-4.500) uIu/ml Free T4 (0.61-1.60) ng/dl Urine Color Urine Appearance (Clear) Urine pH (4.5-7.5) Ur Specific [place] (1.000-1.030) Urine Protein (Negative) Urine Glucose (UA) (Negative) Urine Ketones (Negative) Urine Blood (Negative) Urine Nitrite (Negative) Urine Bilirubin (Negative) Urine Urobilinogen (Negative) Ur Leukocyte Esterase (Negative) Urine WBC (Auto) (0-5) /hpf Urine RBC (Auto) (0-4) /hpf U Hyaline Cast (Auto) (0-5) /lpf U Epithel Cells (Auto) (0-5) /lpf Urine Bacteria (Auto) (Negative) Amiodarone Desmethylamiodarone SARS-CoV-2, RNA, NAAT NEGATIVE (NEGATIVE) Blood Type Antibody Screen Diagnostic Findings Cervical Spine CT 08/13/22 12:[address] DOSE: HISTORY: fall, trauma TECHNIQUE: Multiaxial CT images of the cervical spine were performed and reformatted in the sagittal and coronal plane without the use of contrast. A dose lowering technique was utilized adhering to the principles of ALARA. COMPARISON: None. FINDINGS: No fractures. No subluxation. Prevertebral soft tissues and the C1-C2 interval are intact. No pneumothorax. Patchy biapical irregular densities are noted. These are nonspecific but favor scarring. [id number] degenerative changes within the cervical spine. IMPRESSION: No fractures within the cervical spine. ACT 112: Negative or not required by law. Electronically signed by: González Hernandez M.D. 08/13/2022 12:[address] 08/13/22 12:03 CT head/brain wo con CLINICAL HISTORY: 87 years-old Female with fall, trauma. Injury status post fall TECHNIQUE: Multiple axial CT images of the head were obtained without contrast. A dose lowering technique was utilized adhering to the principles of ALARA. CT DOSE: 1579.93 mGy.cm COMPARISON: 03/31/2022 FINDINGS: No acute intracranial hemorrhage, midline shift, intracranial mass, hydrocephalus, territorial ischemia or abnormal extra-axial collection. Involutional changes with chronic microvascular ischemic disease. The study was motion degraded and then repeated. The calvarium is intact. Prior bilateral lens repair. The paranasal sinuses, mastoid air cells, and middle ear cavities are clear. IMPRESSION: Motion degraded exam. No acute intracranial abnormality or calvarial fracture identified. ACT 112: Negative or not required by law. The above report was generated using voice recognition software. It may contain grammatical, syntax or spelling errors. Electronically signed by: Norman Walsh M.D. 08/13/2022 12:34 PM Hip/Pelvis X-Ray 08/13/22 12:03 XR hip RT 2V w pelvis HISTORY: 87 years-old Female fall, pain acute right hip pain status post fall COMPARISON: None TECHNIQUE: AP view of the pelvis with 2 views of the right hip FINDINGS: Demineralization appearance of the bones. Mild to moderate osteophytosis of the hips. There is an acute transcervical fracture of the right femur with mild impaction, apex superolateral angulation and superior displacement of approximately 1.3 cm. No dislocation or additional acute fracture identified. Mild soft tissue swelling lateral to the right hip. IMPRESSION: Acute mildly impacted, displaced and angulated transcervical fracture of the right femur. ACT 112: Negative or not required by law. The above report was generated using voice recognition software. It may contain grammatical, syntax or spelling errors. Electronically signed by: Norman Walsh M.D. 08/13/2022 12:53 PM Chest X-Ray 08/13/22 13:37 SINGLE VIEW CHEST CLINICAL HISTORY: Fall. Weakness. Leukocytosis. FINDINGS: An AP, portable, upright chest radiograph is obtained. No prior studies are available for comparison at the time of dictation. The examination is degraded by portable technique and apical lordotic positioning. The heart is enlarged note atherosclerotic calcification of the thoracic aorta. The pulmonary vasculature is noncongested. Chronic interstitial thickening is similar to previous. There is mild bibasilar scarring/atelectasis. The lungs and pleural spaces are otherwise clear. No pneumothorax is seen. The skeletal structures are osteopenic. The bony thorax is grossly intact. IMPRESSION: Cardiomegaly with no acute cardiopulmonary abnormality identified. ACT 112: Negative or not required by law. Electronically signed by: Sung Jose M.D. 08/13/2022 2:00 PM Hip X-Ray 08/13/22 17:28 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 IMPRESSION: Acute transcervical fracture of the right femur again noted with unchanged alignment. ACT 112: Negative or not required by law. The above report was generated using voice recognition software. It may contain grammatical, syntax or spelling errors. Electronically signed by: Norman Walsh M.D. 08/14/2022 8:23 AM
--- NOTE | 2022-08-14 09:10 | Cardiology Progress Note ---
Date of Service August 14, 2022 Assessment & Plan (1) Closed right hip fracture: (2) SSS (sick sinus syndrome): (3) Afib: (4) Sinus node dysfunction: Plan 1. Leg fracture: This is from a fall, however it appears that the fall was due to intermittent dizziness presumably associated with sinus pauses. 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 She had frequent brief episodes of atrial fibrillation. Some these pauses are long enough that with standing I would not be surprised if she would have dizziness. The pauses are likely explanation for her fall. 3. Atrial fibrillation: She does have brief episodes of atrial fibrillation, the rate is somewhat fast during atrial fibrillation although she is asymptomatic and I doubt that caused her fall. Treating her atrial fibrillation would likely eliminate the postconversion pauses, however she should have a pacemaker to allow more appropriate treatment of her atrial arrhythmia. I did start intravenous amiodarone yesterday to suppress the atrial fibrillation and that was effective since the emergency room. I do not know whether we should continue it over the long run, I am inclined not to until we assess her symptoms, atrial fibrillation burden and heart rate during atrial fibrillation with pacemaker monitoring. Over the long run she will need anticoagulation but I would wait until after a pacemaker and surgery for her leg fracture. 4. Sinus node dysfunction: She has postconversion pauses consistent with a prolonged sinus node recovery time on no medications to cause this, this is most likely a component of tachybradycardia syndrome and does indicate a need for a pacemaker given her dizziness and now her fall. Amiodarone could exacerbate sinus node dysfunction but her sinus rhythm other than postconversion is quite stable, and we were able to eliminate the atrial fibrillation and therefore the sinus pauses without much effect on her sinus node. Once the pacemaker is in place we can evaluate the ongoing need for amiodarone, it may be a reasonable option at her age but may not be necessary. 5. Leukocytosis: She did have a markedly elevated white count on presentation, that is much better this morning and there does not appear to be any sign of infection (she has been afebrile and no clear source) and this is presumably due to stress. I think we should proceed with her pacemaker and leg surgery. I implanting pacemaker implantation this morning with leg surgery to follow, I discussed this with her and she is agreeable. Admission and Anticipated Discharge Date Admission Date: August 13, 2022 Subjective She is feeling well today other than leg pain. She has no cardiovascular symptoms, no palpitations, lightheadedness or dizziness but has been supine. Since starting on amiodarone she has had no further atrial fibrillation and therefore no further pauses. Physical Exam Physical Exam: Constitutional: Alert, cooperative and in no distress. She is resting in bed. HEENT: Unremarkable Neck: No jugular venous distention, carotid pulses are normal and equal bilaterally without bruits. Pulmonary: Clear to auscultation bilaterally. Cardiac: Regular rhythm with no murmur, gallop or rub. Abdomen: Soft, nontender with normal bowel sounds. Extremities: No edema. Distal pulses intact. Neurologic: No focal findings. Gait was not tested Skin: No rash, ecchymoses or petechiae. Results & Data Vital Signs (Past 12 Hours) Vital Signs Temp Pulse Pulse Resp BP Pulse Ox O2 Del Method 08/14/22 07:35 36.8 C 65 17 147/79 H 96 Nasal Cannula 08/14/22 03:00 36.6 C 58 L 18 149/71 H 97 Nasal Cannula 08/13/22 22:58 Nasal Cannula 08/13/22 23:15 53 L 08/13/22 22:31 36.7 C 51 L 18 147/65 H 99 Nasal Cannula O2 Flow Rate 08/14/22 07:35 2 08/14/22 03:00 08/13/22 22:58 2 08/13/22 23:15 08/13/22 22:31 2 Laboratory Results Cardiac Enzymes 08/13/22 08/13/22 Range/Units 12:20 13:28 AST 19 (13-39) U/L Troponin I High Sens 7.1 Cancelled (0-14) pg/ml Coagulation 08/13/22 08/14/22 Range/Units 12:20 05:39 PT 11.1 11.2 (9.0-12.0) Seconds APTT 26.4 32.0 H (21.0-31.0) Seconds CBC 08/13/22 08/14/22 Range/Units 12:20 05:39 WBC 24.97 H 14.91 H D (4.8-10.8) K/ul RBC 3.99 L 3.72 L (4.20-5.40) M/uL Hgb 12.6 11.6 L (12.0-16.0) g/dl Hct 36.6 L 34.8 L (37.0-47.0) % Plt Count 562 H 482 H (130-400) K/uL Neut # (Auto) 22.81 H 13.25 H (1.40-6.50) K/uL Lymph # (Auto) 1.05 L 0.71 L (1.2-3.4) K/uL [place] # (Auto) 0.81 H 0.75 H (0.11-0.59) K/uL Eos # (Auto) 0.06 0.09 (0-0.50) K/uL Baso # (Auto) 0.05 0.03 (0-0.2) K/uL Comprehensive Metabolic Panel 08/13/22 08/14/22 Range/Units 12:20 05:39 Sodium 138 137 (136-145) mmol/L Potassium 3.7 3.5 (3.5-5.1) mmol/L Chloride 101 102 (98-107) mmol/L Carbon Dioxide 27 27 (21-32) mmol/L BUN 17 15 (6-23) mg/dl Creatinine 0.89 0.98 (0.6-1.2) mg/dl Glucose 113 H 109 H (70-99(Fasting)) mg/dl Calcium 9.4 8.5 L (8.6-10.3) mg/dl AST 19 (13-39) U/L ALT 11 (7-52) U/L Alkaline Phosphatase 73 (34-104) U/L Total Protein 6.2 (6.0-8.3) gm/dl Albumin 3.9 (3.4-5.0) gm/dl Intake and Output 08/13/22 08/14/22 08/14/22 22:59 06:59 14:59 Intake Total 384.352 / 1921.019 936.667 / 1921.019 Output Total 700 / 950 250 / 950 Balance -315.648 / 971.019 686.667 / 971.019 Intake: IV 384.352 / 1921.019 936.667 / 1921.019 Amiodarone / D5w 150 mg In 100 100 / 100 ml @ 600 mls/hr IV NOW STA Rx#: [id number] Amiodarone / D5w 360 mg In 200 153.735 / 153.735 ml @ 1 MG/MIN 33.333 mls/hr IV ONE ONE Rx#:[id number] Magnesium Sulfate / D5w 1 gm In 100 / 100 100 ml @ 100 mls/hr IV NOW STA Rx#:[id number] Plasma-Lyte A 1,000 ml @ 100 936.667 / 936.667 mls/hr IV .Q10H ASTRID Rx#: [id number] Oral 0 / 0 Output: Urine Amount (Catheter) 700 / 950 250 / 950 Lopez/Indwelling 700 / 950 250 / 950 Other: Other Intake Source npo npo Weight 68 kg 68 kg Weight Measurement Method Built in [facility] Diagnostic Findings Telemetry: Sinus rhythm since starting intravenous amiodarone, no further pauses. PG Care Time/CCT Total # of Minutes Spent Total Time Spent with Patient: Total time spent is greater than 50% in coordination of care (as documented) at patient's floor/unit and/or counseling patient: Coding Level of Care Code 83210 SUB INP/OBS CARE 3/50MIN Diagnoses Closed right hip fracture S72.001A SSS (sick sinus syndrome) I49.5 Afib I48.0 Atrial fibrillation type: paroxysmal Sinus node dysfunction I49.5 (3) Afib Atrial fibrillation type: paroxysmal Qualified Code(s): I48.0 - Paroxysmal atrial fibrillation
[2022-08-14] MEDS ORDERED: fentaNYL citrate PF 100 MCG/2 ML VIAL ONE ×2 (11:15→14:47)
[2022-08-14] MEDS ORDERED: MIDAZOLAM HCL 1 MG/ML 2ML VIAL ONE (11:15)
--- NOTE | 2022-08-14 11:29 | Pre Anesthesia Assessment ---
Date of Service August 14, 2022 Pre Sedation Assessment Vital Signs Temp Pulse Pulse Resp BP BP Pulse Ox 08/14/22 07:35 36.8 C 65 17 147/79 H 96 08/14/22 03:00 36.6 C 58 L 18 149/71 H 97 08/13/22 22:58 08/13/22 23:15 53 L 08/13/22 22:31 36.7 C 51 L 18 147/65 H 99 08/13/22 20:08 36.8 C 55 L 18 146/75 H 96 08/13/22 17:14 08/13/22 17:14 36.8 C 63 16 160/77 H 97 08/13/22 16:10 59 L 14 98 08/13/22 16:00 60 13 98 08/13/22 16:00 146/65 H 08/13/22 15:50 57 L 13 99 08/13/22 15:40 63 14 99 08/13/22 15:30 75 15 99 08/13/22 15:30 162/69 H 08/13/22 15:20 74 19 94 08/13/22 15:10 79 14 96 08/13/22 15:00 71 15 98 08/13/22 15:00 148/74 H 08/13/22 14:50 73 12 99 08/13/22 14:40 81 15 97 08/13/22 14:33 84 17 99 08/13/22 14:33 173/98 H 08/13/22 14:30 83 13 99 08/13/22 14:20 78 18 99 08/13/22 14:10 82 17 99 08/13/22 14:00 86 13 99 08/13/22 13:50 97 H 22 97 08/13/22 13:40 94 H 16 98 08/13/22 13:31 94 H 16 99 08/13/22 13:31 143/102 H 08/13/22 13:30 86 18 96 08/13/22 13:24 131/101 H 08/13/22 13:24 102 H 18 98 08/13/22 13:20 86 21 97 08/13/22 13:10 98 H 16 98 08/13/22 13:00 109 H 20 98 08/13/22 12:50 72 15 08/13/22 12:40 78 19 93 08/13/22 12:33 78 15 08/13/22 12:10 65 17 93 08/13/22 12:00 64 21 93 08/13/22 12:00 144/71 H 08/13/22 11:50 64 16 96 08/13/22 11:48 63 13 97 08/13/22 11:52 69 08/13/22 11:48 36.5 C 15 95 08/13/22 11:48 36.5 C 64 15 145/72 H 95 O2 Del Method O2 Flow Rate 08/14/22 07:35 Nasal Cannula 2 08/14/22 03:00 Nasal Cannula 08/13/22 22:58 Nasal Cannula 2 08/13/22 23:15 08/13/22 22:31 Nasal Cannula 2 08/13/22 20:08 Room Air 08/13/22 17:14 Nasal Cannula 2 08/13/22 17:14 Nasal Cannula 2 08/13/22 16:10 08/13/22 16:00 08/13/22 16:00 08/13/22 15:50 08/13/22 15:40 08/13/22 15:30 08/13/22 15:30 08/13/22 15:20 08/13/22 15:10 08/13/22 15:00 08/13/22 15:00 08/13/22 14:50 08/13/22 14:40 08/13/22 14:33 08/13/22 14:33 08/13/22 14:30 08/13/22 14:20 08/13/22 14:10 08/13/22 14:00 08/13/22 13:50 08/13/22 13:40 08/13/22 13:31 08/13/22 13:31 08/13/22 13:30 08/13/22 13:24 08/13/22 13:24 08/13/22 13:20 08/13/22 13:10 08/13/22 13:00 08/13/22 12:50 08/13/22 12:40 08/13/22 12:33 08/13/22 12:10 08/13/22 12:00 08/13/22 12:00 08/13/22 11:50 08/13/22 11:48 08/13/22 11:52 08/13/22 11:48 Room Air 08/13/22 11:48 Room Air Cardiovascular RRR, no murmur, no edema Respiratory normal respiratory effort, lungs clear to auscultation Pre-Sedation Airway Assessment Smoking Status: Never smoker Hx Sleep Apnea: No Short, Thick Neck: No Thyromental Distance: > or= 3.5 Finger Breadths Oral Cavity: + WNL Mallampati Class: III ASA: ASA4 NPO Status Date of Last Intake of Fluids: 08/13/22 Date of Last Intake of Solid Food: 08/13/22 Procedure Planning Contraindications for Sedation: none Current Medications Reviewed: Yes Notes The planned sedation has been discussed with the patient's daughter. Informed Consent was obtained. I have identified the patient, determined the appropriateness of sedation and have assessed the patient immediately prior to the procedure. All medicine(s) and interventions are by my order.
[2022-08-14] MEDS ORDERED: ceFAZolin 330 MG/ML 1 GM VIAL ONE (11:36)
--- NOTE | 2022-08-14 12:53 | Electrophysiology Report ---
Date of Service August 14, 2022 Electrophysiology Procedure Electrophysiology Procedure Report Preoperative diagnosis: Tachybradycardia syndrome Postoperative diagnosis: Same Procedure: Dual-chamber pacemaker implantation Surgeon: Ronaldo Sam MD Estimated blood loss: 20 cc Specimens: None Anesthesia: Local with sedation Procedure details: After obtaining informed consent for the procedure, the patient was brought to the laboratory and prepped and draped in the standard sterile manner. The left prepectoral region was anesthetized with 1% lidocaine local anesthetic and left axillary venipuncture was performed by percutaneous technique and a guidewire placed through the left subclavian vein into the superior vena cava. The area was further infiltrated with 1% lidocaine local anesthetic and a 5 cm incision was made parallel to the left clavicle and 2 cm below it and carried down to the anterior pectoralis fascia. A pacemaker pocket was formed by blunt dissection anterior to the pectoralis fascia and a vancomycin soaked sponge was placed in the pocket. A 9 Macanese long Medtronic lead introducer was placed over the guidewire into the left subclavian vein, the dilator and guidewire were removed and a bipolar active fixation steroid tipped ventricular lead was advanced through the introducer into the superior vena cava. A guidewire was placed through the introducer and the introducer was stripped from the lead and guidewire. Another 7 Macanese long Medtronic lead introducer was placed over the guidewire into the left subclavian vein, the dilator and guidewire were removed and a bipolar active fixation steroid tipped atrial lead was advanced through the introducer into the superior vena cava. Using a curved stylette the atrial lead was positioned in the region of the atrial appendage and the screw extended fixing the lead in position. Pacing and sensing thresholds were evaluated in bipolar configuration and are recorded on the implant data sheet. The sheath was stripped from the atrial lead. Using a curved stylette the ventricular lead was advanced through the right ventricular outflow tract into the pulmonary artery and then using a straight stylette was positioned in the right ventricular apex. The screw was extended fixing the lead in position. Pacing and sensing thresholds were evaluated in bipolar configuration and are recorded on the implant data sheet. Once the leads were in position they were attached to the anterior pectoralis fascia using 2 sutures of 2-0 silk around each lead collar. The vancomycin soaked sponge was removed from the pocket, hemostasis was obtained, the pacemaker was attached to the leads and placed in the pocket with the leads coiled beneath it. The incision was closed with a running double subcutaneous closure of 3-0 Vicryl absorbable suture, followed by running subcuticular skin closure of 4-0 Vicryl absorbable suture. Bacitracin ointment was placed on the incision and a dressing applied. [facility] [place] Electrophysiology codes Indication for Procedure (1) SSS (sick sinus syndrome): Pacing Procedure 1: Pacin Insert/Replace Pacer A & V PG Moderate Sedation Codes Moderate Sedation Codes Procedure 1: Sedation/Anesthesia: 81812 Mod Sedation by the same physician;Init15 Min Child Age 5 & Up Procedure 2: Sedation/Anesthesia: 36372 Mod Sedation by the same physician; Ea [id number] Minutes
--- NOTE | 2022-08-14 13:58 | Post Anesthesia Assessment ---
Date of Service August 14, 2022 Post Sedation Assessment Vital Signs Temp Pulse Pulse Resp BP BP Pulse Ox 08/14/22 13:10 36.8 C 82 14 189/82 H 98 08/14/22 12:55 36.8 C 75 14 143/66 H 98 08/14/22 07:35 36.8 C 65 17 147/79 H 96 08/14/22 03:00 36.6 C 58 L 18 149/71 H 97 08/13/22 22:58 08/13/22 23:15 53 L 08/13/22 22:31 36.7 C 51 L 18 147/65 H 99 08/13/22 20:08 36.8 C 55 L 18 146/75 H 96 08/13/22 17:14 08/13/22 17:14 36.8 C 63 16 160/77 H 97 08/13/22 16:10 59 L 14 98 08/13/22 16:00 60 13 98 08/13/22 16:00 146/65 H 08/13/22 15:50 57 L 13 99 08/13/22 15:40 63 14 99 08/13/22 15:30 75 15 99 08/13/22 15:30 162/69 H 08/13/22 15:20 74 19 94 08/13/22 15:10 79 14 96 08/13/22 15:00 71 15 98 08/13/22 15:00 148/74 H 08/13/22 14:50 73 12 99 08/13/22 14:40 81 15 97 08/13/22 14:33 84 17 99 08/13/22 14:33 173/98 H 08/13/22 14:30 83 13 99 08/13/22 14:20 78 18 99 08/13/22 14:10 82 17 99 08/13/22 14:00 86 13 99 O2 Del Method O2 Flow Rate 08/14/22 13:10 Nasal Cannula 6 08/14/22 12:55 Nasal Cannula 6 08/14/22 07:35 Nasal Cannula 2 08/14/22 03:00 Nasal Cannula 08/13/22 22:58 Nasal Cannula 2 08/13/22 23:15 08/13/22 22:31 Nasal Cannula 2 08/13/22 20:08 Room Air 08/13/22 17:14 Nasal Cannula 2 08/13/22 17:14 Nasal Cannula 2 08/13/22 16:10 08/13/22 16:00 08/13/22 16:00 08/13/22 15:50 08/13/22 15:40 08/13/22 15:30 08/13/22 15:30 08/13/22 15:20 08/13/22 15:10 08/13/22 15:00 08/13/22 15:00 08/13/22 14:50 08/13/22 14:40 08/13/22 14:33 08/13/22 14:33 08/13/22 14:30 08/13/22 14:20 08/13/22 14:10 08/13/22 14:00 Discharge Sedation Level of Care: Fast Track Phase II Post Sedation Plan On clinical assessment, the patient appears to have tolerated the sedation without complications. Patient is recovering as anticipated. Patient will continue to be monitored by nursing and may be discharged when sedation discharge criteria are met per below protocol. Upon Completions of procedure up to 15 minutes continue every 5 minute vital signs and the P.A.R. score; then discharge to a Phase I or Fast Track to Phase II per the following guidelines: * Discharge Patient to appropriate Phase II area if PAR is 8 or greater or return to pre- procedure baseline. The post - procedure orders will be as directed. * If PAR score is less than 8 or not return to pre-procedure baseline then patient will follow Phase I monitoring till PAR is reached for Phase II. The Phase I may be done in procedure room or may call to secure a Phase I area. * If naloxone or flumazenil are used for reversal, hold in Phase I for continued monitoring from when last reversal dose was given for a minimum of 60 minutes or longer pending the nurse and/or physician discretion of patient condition before discharge to Phase II. Please call the Sedation Physician to re-evaluate and complete post-note for discharge to Phase II area. Do NOT discharge from procedure sedation or Phase 1 until post- sedation evaluation note is complete by procedure /sedation MD Sedation Discharge Instructions to be given to the patient at discharge to home.
--- NOTE | 2022-08-14 14:32 | History & Physical Bridge Note ---
Date of Service August 14, 2022 History & Physical Bridge Note I have examined the patient, reviewed the History & Physical and in the interval since the performance of the History & Physical I have noted the following changes of clinical significance: no changes noted Patient seen in holding status post pacer placement. She appears stable. Her vitals are noted. Plan is to proceed with her hip hemiarthroplasty.
[2022-08-14] MEDS ORDERED: THROMBIN FOR SOLN 20000 UNIT KIT ONE (14:37)
[2022-08-14] MEDS ORDERED: BUPIVACAINE 0.5 % 5 MG/1 ML MPF 30ML VIAL ONE ×2 (14:37→14:45)
[2022-08-14] MEDS ORDERED: ePHEDrine sulfate 50 MG/ML AMP IV PRN (14:38)
[2022-08-14] MEDS ORDERED: ATROPINE SULFATE 0.1 MG/ML 10ML SYR IV PRN (14:38)
[2022-08-14] MEDS ORDERED: ONDANSETRON INJ 2 MG/ML 2 ML VIAL IV PRN (14:38)
[2022-08-14] MEDS ORDERED: HYDROmorphone INJ 2 MG/ML SYR/VIAL IV PRN (14:38)
[2022-08-14] MEDS ORDERED: fentaNYL citrate PF 100 MCG/2 ML VIAL IV PRN (14:38)
[2022-08-14] MEDS ORDERED: TRANEXAMIC ACID / 0.7% NACL 1000MG/100ML BAG IV ONE (15:09)
--- NOTE | 2022-08-14 17:01 | Electrocardiogram Report ---
Test Reason : Blood Pressure : / mmHG Vent. Rate : 067 BPM Atrial Rate : 067 BPM P-R Int : 184 ms QRS Dur : 080 ms QT Int : 412 ms P-R-T Axes : 069 068 025 degrees QTc Int : 435 ms Normal sinus rhythm with sinus arrhythmia Normal ECG When compared with ECG of 15-SEP-2012 20:46, T wave inversion now evident in Inferior leads Confirmed by Ronaldo Sam ([id number]) on 08/14/2022 5:00:39 PM Referred By: REFERRED SELF Confirmed By:Ronaldo Sam
[2022-08-14] MEDS ORDERED: DEXAMETHASONE SOD INJ 4 MG/ML VIAL ONE (17:03)
[2022-08-14] MEDS ORDERED: PROPOFOL IV EMULSION 10 MG/ML 20 ML VIAL IV ONE (17:03)
[2022-08-14] MEDS ORDERED: LIDOCAINE 2% MPF LOCAL 5 ML VIAL ONE (17:03)
[2022-08-14] MEDS ORDERED: ROCURONIUM BROMIDE 10 MG/ML 5 ML VIAL IV ONE (17:03)
[2022-08-14] MEDS ORDERED: PHENYLEPHRINE 100MCG/ML 5ML SYR ONE (17:03)
[2022-08-14] MEDS ORDERED: ONDANSETRON INJ 2 MG/ML 2 ML VIAL ONE (17:14)
[2022-08-14] MEDS ORDERED: SUGAMMADEX SODIUM 200 MG/2 ML VIAL IV ONE (17:14)
--- NOTE | 2022-08-14 18:00 | Operative Report ---
Post Operative Report Pre & Post Diagnosis Operation Date: 08/14/22 11:00 <No data on this case meets the specified criteria> Preop and postop diagnosis is right femoral neck fracture with I identified the patient and participated in the time-out.: Yes Procedure Procedure is a cemented right hip hemiarthroplasty Surgeon Stuart West MD Bulldozer Press Operator Kaitlyn Prince physicians district administrative assistant no resident or fellow available Estimated Blood Loss 25 Findings Consistent with Post-Op Diagnosis Specimens Resected femoral head Anesthesia Type General Regional Complications none Disposition Accompanied Patient To Recovery: No Disposition: Recovery Room Indications Patient is 87 years old. She had a near syncopal episode and fell. She has a cardiac abnormality which has been addressed with pacemaker earlier today. She fractured her right hip and I recommended surgery she agreed to proceed. Description of Procedure Informed consent obtained. Patient identified. She identified the operative site as the right hip. I marked with my initials. Preoperative surgical timeout performed. A preop dose of intravenous antibiotics was given she was taken to the OR positioned supine on the operating room table. The anesthetic was administered. She was positioned lateral decubitus with the right side up. The Stolberg positioner was utilized to hold her pelvis perpendicular to the floor. Bony prominences of the lower extremities were inspected and padded. An axillary roll was inserted. The leg was prescribed and prepped and draped in usual sterile fashion. DVT prophylaxis intraoperatively with a AVM pulse boot on the nonoperative leg. Postoperatively she will likely start on something like Eliquis. She received a preop dose of IV antibiotics and TXA. Posterior approach to the hip was made with a 15 cm incision one third below and two thirds above the tip of the greater trochanter. There was a 2 inch fat envelope which was divided with electrocautery followed by division of the gluteal fascia and upper iliotibial band. The Charnley retractor was inserted and the bursa was resected. The hip was internally rotated and fat was dissected off of the short external rotators. Retractors were inserted underneath the hip abductor musculature. The piriformis tendon was identified and resected along with the short external rotators. They were lifted up off of the joint capsule which was ruptured more inferiorly. These were tagged for later repair. The gluteus minimus was elevated up off of the joint capsule and a posterior capsulotomy was performed and dissected out for later repair. The inferior capsule was released. The femur was translocated anteriorly and the femoral head was removed and sized to a 45. 45 trial fit well. The acetabulum showed good cartilage without any exposed bone. The labrum was intact circumferentially. The ligamentum teres was resected. The leg was placed in the 9090 position. Soft tissue on the base of the lateral neck was resected. The box cutting guide was utilized followed by the canal finder and the lateralizing reamer. Broaching began at size 10 and proceeded up to size 13. The 12 broach countersunk pretty readily but the 13 could barely be seated. It looked a little small for the metaphyseal shape. Previous to this I did a femoral neck cut using the template which was just below 1 fingerbreadth above the lesser trochanter. The 13 broach was rotationally stable. It may have been getting hung hung up distally. Her cortices were thin. I went ahead and trialed at this point and had good stability with a 0 neck length. Broaching was done in about 20 to 30 degrees of anteversion. The broach was removed after trialing. The canal was plugged at the appropriate depth and pulsatile lavage was used to prepare the shaft. We did not have a tampon available so I sprayed thrombin and followed by suction. I then mixed 2 bags of Simplex P cement and then while in a semidoughy state filled retrograde under direct visualization and then pressurized. The size 12 implant for the 13 broach was inserted with a distal symmetrical eyes are in place. This was done against the lateral cortex in about 20 to 30 degrees of femoral anteversion. The extraneous cement was removed. Implant was held in place until cement hardened and I retrialed and found that the +3.5 neck length gave good stability although there was some tightness in extension. Shuck test was negative at 0 mid position and 90. At at neutral abduction abduction the hip could be internally rotated 45 degrees. With flexion and abduction the hip could be rotated about 30 degrees before instability. I then inserted the final components which was the 45 shell the appropriate liner and the +3.5 mm neck length. The acetabulum was cleaned and irrigated and the reduction was done. The short external rotators and joint capsule were repaired back to the hip abductor musculature and greater trochanter as appropriate using #1 Ethibond. The iliotibial band was closed using running and interrupted #1 Vicryl's followed by 0 for the space fat layer and 2-0 Vicryl's on the skin followed by lizbeth. The leg was cleaned wet dry sponges and soft sterile dressing was applied Xeroform 4 x 4's ABD and foam tape. Local anesthetic 1% lidocaine mixed with half percent Marcaine both plain was injected into the skin and subcutaneous tissues. She was then awakened from anesthesia difficulty. Hip abduction pillow was placed and she was taken to recovery in stable condition. There were no complications. Counts were correct. Blood loss estimated to be 25 cc. Specimens were the femoral head. Femoral head bone appeared soft. The fracture was through the midportion of the femoral neck with some comminution of the neck. The calcar was intact. At the conclusion the operation spoke to patient's family on the phone and discussed with him my findings and recommendations. Component inserted was the Teja LD fracture hip fracture system size 12 stem. I attest to the content of the Intraoperative Record and any orders documented therein. Any exceptions are noted below.
--- NOTE | 2022-08-14 18:02 | Operative Report ---
Post Operative Report Pre & Post Diagnosis Operation Date: 08/14/22 11:00 <No data on this case meets the specified criteria> I identified the patient and participated in the time-out.: Yes Procedure Operation Date: 08/14/22 11:00 Actual Procedures p Pacer with A/V Leads (Dual) - Ronaldo Sam MD Surgeon Dr. Stuart West Commanding Officer [employer] Kaitlyn Prince PA-C no fellow available Estimated Blood Loss 25 Findings Consistent with Post-Op Diagnosis Specimens femoral head Complications none Disposition Accompanied Patient To Recovery: No Description of Procedure Please refer to Dr. West's operative report for specifics. I assisted with positioning, draping, retracting, wound closure, dressing application, and transferring to liter. Pt left the OR in stable condition. I attest to the content of the Intraoperative Record and any orders documented therein. Any exceptions are noted below.
[2022-08-14] MEDS ORDERED: SODIUM CHLORIDE 0.9% 1000ML 1,000 ML IV SCH (18:15)
--- NOTE | 2022-08-14 18:49 | Electrocardiogram Report ---
Test Reason : Blood Pressure : / mmHG Vent. Rate : 102 BPM Atrial Rate : 000 BPM P-R Int : 000 ms QRS Dur : 084 ms QT Int : 344 ms P-R-T Axes : 000 142 130 degrees QTc Int : 448 ms Arm lead reversal Atrial fibrillation with rapid ventricular response Lateral ST-T abnormalities Abnormal ECG When compared with ECG of 13-AUG-2022 11:44, (unconfirmed) Atrial fibrillation and lateral ST-T abnormalities are new Confirmed by Ronaldo Sam ([id number]) on 08/14/2022 6:49:22 PM Referred By: REFERRED SELF Confirmed By:Ronaldo Sam
--- NOTE | 2022-08-14 19:16 | XRay Report ---
RIGHT HIP 2 VIEWS CLINICAL HISTORY: Postoperative examination. FINDINGS: AP and crosstable lateral views of the right hip are compared to study dated 08/13/2022. The skeletal structures are osteopenic. A right hip arthroplasty is in near anatomic alignment. No peripr osthetic lucency is seen. No acute fracture is identified on these postoperative images. Skin clips, subcutaneous gas, and soft tissue swelling overlying the right hip are expected postoperative changes . IMPRESSION: Expected postoperative findings status post right hip arthroplasty. No acute fracture is seen. Electronically signed by: Sung Jose M.D. 08/14/2022 7:14 PM
--- NOTE | 2022-08-14 19:34 | Anesthesiology Progress Note ---
Date of Service August 14, 2022 Anesthesia Post Procedure Vital Signs Vital Signs: Temp Pulse Pulse Pulse Resp BP BP 08/14/22 19:10 79 20 129/56 L 08/14/22 19:00 82 18 133/59 L 08/14/22 18:50 36.8 C 84 17 155/68 H 08/14/22 18:40 87 20 155/89 H 08/14/22 18:30 87 17 167/68 H 08/14/22 18:20 85 18 158/64 H 08/14/22 18:10 82 17 183/74 H 08/14/22 18:03 36.6 C 80 22 163/68 H 08/14/22 14:21 36.5 C 75 20 170/72 H 08/14/22 13:10 36.8 C 82 14 189/82 H 08/14/22 12:55 36.8 C 75 14 143/66 H 08/14/22 07:35 36.8 C 65 17 147/79 H 08/14/22 03:00 36.6 C 58 L 18 149/71 H 08/13/22 22:58 08/13/22 23:15 53 L 08/13/22 22:31 36.7 C 51 L 18 147/65 H 08/13/22 20:08 36.8 C 55 L 18 146/75 H Pulse Ox O2 Del Method O2 Flow Rate 08/14/22 19:10 92 Oxymask 5 08/14/22 19:00 92 Oxymask 5 08/14/22 18:50 93 Nasal Cannula 4 08/14/22 18:40 93 Nasal Cannula 4 08/14/22 18:30 96 Oxymask 7 08/14/22 18:20 95 Oxymask 9 08/14/22 18:10 94 Oxymask 9 08/14/22 18:03 95 Oxymask 9 08/14/22 14:21 100 Nasal Cannula 4 08/14/22 13:10 98 Nasal Cannula 6 08/14/22 12:55 98 Nasal Cannula 6 08/14/22 07:35 96 Nasal Cannula 2 08/14/22 03:00 97 Nasal Cannula 08/13/22 22:58 Nasal Cannula 2 08/13/22 23:15 08/13/22 22:31 99 Nasal Cannula 2 08/13/22 20:08 96 Room Air Pain Intensity Right Hip: Pain Intensity: 4 Transfer of Care Handoff Completed per policy Notes Mental Status: alert / awake / arousable Patient Amnestic to Procedure: Yes Nausea / Vomiting: adequately controlled Pain: adequately controlled Airway Patency, RR, SpO2: see Notes below BP & HR: stable & adequate Hydration State: stable & adequate Anesthetic Complications: no major complications apparent Notes: pt had sedation previously for pacer insertion and then a several hour long GA for hip fracture repair. given that she is sedate and likely has some degree of atelectasis, she has a slightly increased oxygen requirement. pt does not appear to be in acute resp distress. will maintain simple fm oxygen upon transfer to pcu. pt will need cont pulse ox post transfer
[2022-08-14] MEDS: ceFAZolin 1000MG 1,000 MG/7.5 ML SYR IV SCH (23:50)
[2022-08-15] MEDS ORDERED: LACTATED RINGER'S 1,000 ML IV SCH (04:45)
[2022-08-15] MEDS ORDERED: TRANEXAMIC ACID / 0.7% NACL 1,000 MG/100 ML BAG IV SCH (06:00)
[2022-08-15] MEDS ORDERED: APIXABAN 5 MG TABLET PO SCH (06:00)
[2022-08-15] MEDS ORDERED: CLINDAMYCIN/D5W 900 MG/50 ML BAG IV SCH (06:00)
[2022-08-15] MEDS: LEVOTHYROXINE SODIUM 88 MCG TABLET PO SCH (06:11)
[2022-08-15 06:29] LABS: Hematocrit (blood only) 31.7 % (37.0-47.0); Hemoglobin 10.7 g/dl (12.0-16.0); Mean Corpuscular Hemoglobin 31.3 pg (25.0-34.0); Mean Corpuscular Hgb Conc 33.8 g/dL (32.0-36.0); Mean Corpuscular Volume 92.7 fL (80.0-100.0); Mean Platelet Volume 10.1 fL (9.4-12.4); Platelet Count 366 K/uL (130-400); RDW Coefficient of Variation 13.1 % (11.5-14.5); RDW Standard Deviation 44.4 fL (36.4-46.3); Red Blood Count 3.42 M/uL (4.20-5.40); White Blood Count 18.36 K/ul (4.8-10.8)
[2022-08-15 06:53] LABS: BUN Creatinine Ratio 18.5 (10-20); Calcium 8.5 mg/dl (8.6-10.3); Est GFR (African American) 53.1 ml/min; Est GFR (Non-African American) 45.8 ml/min; Potassium 3.8 mmol/L (3.5-5.1)
[2022-08-15 06:55] LABS: Basophils # (auto) 0.02 K/uL (0-0.2); Basophils % (auto) 0.1 %; Immature Granulocytes % (auto) 0.5 %; Lymphocytes # (auto) 0.47 K/uL (1.2-3.4); Lymphocytes % (auto) 2.6 %; Monocytes # (auto) 1.18 K/uL (0.11-0.59); Monocytes % (auto) 6.4 %; Neutrophils # (auto) 16.59 K/uL (1.40-6.50); Neutrophils % (auto) 90.4 %
[2022-08-15] MEDS: allopurinoL 300 MG TAB PO SCH (08:43)
[2022-08-15] MEDS: ceFAZolin 1000MG 1,000 MG/7.5 ML SYR IV SCH (08:43)
[2022-08-15] MEDS: MULTIVITAMIN TAB PO SCH (08:44)
[2022-08-15] MEDS: CHOLECALCIFEROL 1,000 UNITS 25 MCG TAB PO SCH (08:44)
[2022-08-15] MEDS: SERTRALINE HCL 50 MG TABLET PO SCH (08:44)
[2022-08-15] MEDS: amLODIPine BESYLATE 5 MG TAB PO SCH (08:44)
--- NOTE | 2022-08-15 08:49 | Cardiology Progress Note ---
Date of Service August 15, 2022 Assessment & Plan (1) SSS (sick sinus syndrome): (2) Status post placement of cardiac pacemaker: Plan 1. Leg fracture: This is from a fall, however it appears that the fall was due to intermittent dizziness presumably associated with sinus pauses. 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 She had frequent brief episodes of atrial fibrillation early after presentation. Some these pauses were long enough that if she is standing I would not be surprised if she would have dizziness. The pauses are a likely explanation for her fall. 3. Atrial fibrillation: She does have brief episodes of atrial fibrillation, the rate is somewhat fast during atrial fibrillation although she is asymptomatic and I doubt that caused her fall. She required a pacemaker to allow more appropriate treatment of her atrial arrhythmia. I did start intravenous amiodarone yesterday to suppress the atrial fibrillation and that was effective with initial treatment, that has been discontinued since yesterday. I am inclined to keep her off of antiarrhythmic therapy until we assess her symptoms, atrial fibrillation burden and heart rate during atrial fibrillation with pacemaker monitoring. So far she has not had any following pacemaker implantation. Over the long run she will need anticoagulation but I would wait until after a pacemaker and surgery for her leg fracture. From the standpoint of the pacemaker I think we can start it this evening, I would recommend Eliquis. She would need an anticoagulant dose, not a prophylactic dose. Her dose would be 5 mg twice a day. 4. Sinus node dysfunction: She has postconversion pauses consistent with a prolonged sinus node recovery time on no medications to cause this, this is most likely a component of tachybradycardia syndrome and does indicate a need for a pacemaker given her dizziness and now her fall. I would recommend beta-gia therapy to help control her ventricular response to atrial fibrillation, it is likely to recur. 5. Leukocytosis: She did have a markedly elevated white count on presentation, that was much better the next morning however has risen somewhat today. There does not appear to be any sign of infection (she has been afebrile and no clear source) and this was felt to be due to stress. I am not sure the time course is really consistent with that however. 6. Postop day #1: She is doing very well postop, the device is working well, she should have a chest x-ray which has not been done yet. The pacemaker site looks good. She does not need any specific pacemaker evaluation at this time, if she remains in the hospital I will remove the dressing in 2 days, otherwise this could be done as an outpatient. I will arrange outpatient follow-up. Admission and Anticipated Discharge Date Admission Date: August 13, 2022 Subjective She is doing well following her surgeries yesterday, she is in good spirits and awake and alert. She has no significant incisional discomfort. No awareness of her cardiac rhythm. Physical Exam Physical Exam: The pacemaker insertion site is clean and dry, no significant bleeding on the dressing, no swelling or tenderness. Dressing change. Cardiac rhythm is regular with no rub Lungs are clear Results & Data Vital Signs (Past 12 Hours) Vital Signs Temp Pulse Pulse Resp BP Pulse Ox O2 Del Method 08/15/22 07:33 36.9 C 70 18 115/67 97 Nasal Cannula 08/15/22 03:18 36.9 C 69 20 121/74 95 Nasal Cannula 08/15/22 00:00 69 08/14/22 23:07 36.8 C 73 17 117/75 97 Oxymask O2 Flow Rate 08/15/22 07:33 2 08/15/22 03:18 2 08/15/22 00:00 08/14/22 23:07 4 Laboratory Results CBC 08/15/22 Range/Units 05:55 WBC 18.36 H (4.8-10.8) K/ul RBC 3.42 L (4.20-5.40) M/uL Hgb 10.7 L (12.0-16.0) g/dl Hct 31.7 L (37.0-47.0) % Plt Count 366 (130-400) K/uL Neut # (Auto) 16.59 H (1.40-6.50) K/uL Lymph # (Auto) 0.47 L (1.2-3.4) K/uL Alpine # (Auto) 1.18 H (0.11-0.59) K/uL Eos # (Auto) 0.00 (0-0.50) K/uL Baso # (Auto) 0.02 (0-0.2) K/uL Comprehensive Metabolic Panel 08/15/22 Range/Units 05:55 Sodium 138 (136-145) mmol/L Potassium 3.8 (3.5-5.1) mmol/L Chloride 103 (98-107) mmol/L Carbon Dioxide 27 (21-32) mmol/L BUN 20 (6-23) mg/dl Creatinine 1.08 (0.6-1.2) mg/dl Glucose 125 H (70-99(Fasting)) mg/dl Calcium 8.5 L (8.6-10.3) mg/dl Intake and Output 08/14/22 08/15/22 08/15/22 22:59 06:59 14:59 Intake Total 1200 / 2200 Output Total 275 / 700 175 / 700 Balance 925 / 1500 -175 / 1500 Intake: IV Perioperative 1200 / 1200 Output: Urine 100 / 100 Estimated Blood Loss 25 / 25 Other 175 / 175 Urine Amount (Catheter) 150 / 400 Lopez/Indwelling 150 / 400 Other: Weight 68.2 kg Weight Measurement Method Built in [facility] Diagnostic Findings Postop ECG, evidently not done Postop chest x-ray: Evidently not done Pacemaker evaluation: Excellent function, only brief atrial pacing Telemetry: Normal pacemaker function, predominantly pacemaker inhibition PG Care Time/CCT Total # of Minutes Spent Total Time Spent with Patient: Total time spent is greater than 50% in coordination of care (as documented) at patient's floor/unit and/or counseling patient: Coding Level of Care Code 57014 Post Operative Follow-Up Diagnoses SSS (sick sinus syndrome) I49.5 Status post placement of cardiac pacemaker Z95.0 CPT Codes Dual Lead Pacemaker System - [id number] ([id number])
--- NOTE | 2022-08-15 10:03 | Orthopedic Progress Note ---
Date of Service August 15, 2022 Assessment & Plan (1) Fracture of right hip: Plan: POD 1 - right hip hemiarthroplasty with Dr. West Doing well PT/OT as ordered WBAT RLE with walker assistance Posterior hip precautions at all times. Ice to right hip as needed for pain/swelling. Pain medication as needed/as prescribed. Abduction pillow between legs when in bed, abduction pillow or standard pillow between knees when sitting in chair. Will continue to follow and plan to change dressings tomorrow. Eliquis, TEDS and AV impulse boots for DVT prophylaxis. Case management for disposition needs. Findings discussed with Dr. West. Admission and Anticipated Discharge Date Admission Date: August 13, 2022 Subjective Patient resting in bed. Mild pain in right hip, "just starting". Has not been out of bed. Tolerating a regular diet. Denies lightheadedness, dizziness, chest pain, shortness of breath, nausea or vomiting. Denies numbness or tingling right lower extremity. Physical Exam Musculoskeletal: Right hip dressings clean, dry and intact. Ice to right hip in place. No distal edema right lower extremity. Full ankle ROM and normal strength. Distal pulses 1+, sensation normal. Abduction pillow in place. Nontender right knee or midthigh. Results & Data Vital Signs (Past 12 Hours) Vital Signs Temp Pulse Pulse Resp BP Pulse Ox O2 Del Method 08/15/22 07:33 36.9 C 70 18 115/67 97 Nasal Cannula 08/15/22 03:18 36.9 C 69 20 121/74 95 Nasal Cannula 08/15/22 00:00 69 08/14/22 23:07 36.8 C 73 17 117/75 97 Oxymask O2 Flow Rate 08/15/22 07:33 2 08/15/22 03:18 2 08/15/22 00:00 08/14/22 23:07 4 (1) Fracture of right hip Encounter type: initial encounter Fracture type: closed Qualified Code(s): S72.001A - Fracture of unspecified part of neck of right femur, initial encounter for closed fracture
--- NOTE | 2022-08-15 11:01 | XRay Report ---
XR chest 1V portable CLINICAL HISTORY: POST PACER COMPARISON STUDY: Chest radiograph August 13, 2022. FINDINGS: There is no pneumothorax following placement of a left subclavian pacemaker. Lead tips proj ect over the expected location of the right atrial appendage and right ventricle. Cardiomegaly is unc hanged. There is no evidence for pulmonary edema. Minimal bibasilar opacities favor atelectasis. Mild elevation/eventration of the right hemidiaphragm is unchanged. IMPRESSION: No pneumothorax following placement of a left subclavian pacer. ACT 112: Negative or not required by law. Electronically signed by: Skip Quezada M.D. 08/15/2022 11:00 AM
--- NOTE | 2022-08-15 11:45 | Hospitalist Progress Note ---
Date of Service August 15, 2022 Assessment & Plan (1) Pre-syncope: Plan: Acute on chronic - high risk - suspect due to pauses. New Afib with conversion pauses 3-4 seconds - EKG normal sinus rhythm with sinus arrhythmia, T wave inversion appreciated in V3 no territorial ST segment changes with QTc 435. Last baseline 2012, NSR without any acute abnormalities - Cardiology consulted, appreciate assistance - S/p pacer placement 08/[address] aSm - Echo completed - wnl - [id number] risk of 4 (high risk) will require indefinite ACT - Started on Eliquis 5mg BID - Maintain continued cardiac monitoring (2) Closed right hip fracture: Plan: Acute R hip fx - moderate risk - Fall secondary to presyncope/new afib w/ conversion pauses - Ortho consulted, appreciate assistance - Status post ORIF Dr. Stuart West 08/14/2022 - Apixaban will utilize postoperatively for DVT prevention and for A-fib - Utilize incentive spirometer for atelectasis/pna prevention - PT/OT eval - Pain control ordered with OxyIR, would use APAP first line, stop IV Dilaudid - Ordered Docusate/Senna for bowel regimen - Reviewed Vitamin D, level marginal at 30.1 but is classified as sufficient (btw 20-40), taking 2000 IU at home which can be resumed/continued - CBC reviewed, leukocytosis noted today at 18.36 (14.91) - No obvious s/sx of infection, blood cultures not ordered on admit, UA appears contaminated and CXR negative - Degree of her leukocytosis could be leukemoid reaction post op, will trend (3) Hypothyroidism: Plan: Chronic/stable - Continued on Synthroid - TSH 4.829 with a normal FT4 of 1.08 (4) Hypertension: Plan: Chronic/stable - Previously well controlled, continue amlodipine 5mg daily (5) Depression: Plan: Chronic/stable - Continue Sertraline (6) CKD (chronic kidney disease), stage III: Plan: Chronic/stable - Reviewed BMP, creatinine stable 1.08 - Has declined nephrology follow up in the past Plan Repeat labs in AM including cbc, bmp, and mag. PT/OT eval. Anticipate she will require rehab following discharge. CM to assist in dc planning. Above plan to be d/w Dr. Aleman. Admission and Anticipated Discharge Date Admission Date: August 13, 2022 Subjective Patient seen on daily rounds this morning. She has no complaints. Hip pain is w ell controlled. No chest pain or soreness at incision site from her PPM. She denies dizziness, lightheaded, shortness of breath, palpitations, headache, or gu symptoms. Physical Exam Physical Exam: GENERAL: 87 yo well-developed, well-nourished elderly F. AAOx4. NAD. LUNGS: Clear to auscultation bilaterally. CARDIOVASCULAR: Regular rate and rhythm. ABDOMEN: Soft, non-tender and non-distended. BS normoactive x 4 quad. EXTREMITIES: No edema. Non-tender. Peripheral pulses +2/4. R leg negative thaddeus's sign. Cap refill <2 sec. Results & Data Results & Data Vital Signs (Past 12 Hours) Vital Signs Temp Pulse Pulse Resp BP Pulse Ox O2 Del Method 08/15/22 11:12 36.9 C 70 20 126/52 L 97 Nasal Cannula 08/15/22 07:33 36.9 C 70 18 115/67 97 Nasal Cannula 08/15/22 03:18 36.9 C 69 20 121/74 95 Nasal Cannula 08/15/22 00:00 69 O2 Flow Rate 08/15/22 11:12 2 08/15/22 07:33 2 08/15/22 03:18 2 08/15/22 00:00 Laboratory Results 08/15/22 05:55 08/15/22 05:55 PG Care Time/CCT Total # of Minutes Spent Total Time Spent with Patient: Total time spent is greater than 50% in coordination of care (as documented) at patient's floor/unit and/or counseling patient: Coding Level of Care Code 79701 SUB INP/OBS CARE 3/50MIN Diagnoses Pre-syncope R55 Closed right hip fracture S72.001A Hypothyroidism E03.9 Hypothyroidism type: acquired Hypertension I10 Hypertension type: essential hypertension Depression F32.9 CKD (chronic kidney disease), stage III N18.3 (3) Hypothyroidism Hypothyroidism type: acquired Qualified Code(s): E03.9 - Hypothyroidism, unspecified (4) Hypertension Hypertension type: essential hypertension Qualified Code(s): I10 - Essential (primary) hypertension
--- NOTE | 2022-08-15 12:31 | XRay Report ---
XR chest 2V PA/lateral HISTORY: Pacemaker lead placement, pneumothorax COMPARISON: Chest 08/15/2022. FINDINGS: There is a left-sided dual-chamber pacemaker. The leads appear intact. No definite pneumoth orax. The heart remains enlarged. There is mild pulmonary vascular congestion and small bilateral ple ural effusions. No new focal lung consolidations identified. A few bibasilar linear densities favor s ubsegmental atelectasis. This remains unchanged. IMPRESSION: 1. Left-sided pacemaker again noted. No pneumothorax. 2. Mild congestive change and small bilateral pleural effusions. ACT 112: Negative or not required by law. Electronically signed by: González Hernandez M.D. 08/15/2022 12:30 PM
[2022-08-15] MEDS: DOCUSATE SODIUM/SENNA 50/8.6MG TAB PO SCH (13:01)
[2022-08-15] MEDS: oxyCODONE HCL IR 5 MG TAB (IMMEDIATE RELEASE) PO PRN (13:01)
--- NOTE | 2022-08-15 14:02 | Electrocardiogram Report ---
Test Reason : Blood Pressure : / mmHG Vent. Rate : 066 BPM Atrial Rate : 066 BPM P-R Int : 162 ms QRS Dur : 084 ms QT Int : 342 ms P-R-T Axes : 039 -01 091 degrees QTc Int : 358 ms Normal sinus rhythm with sinus arrhythmia and rare atrial pacing Nonspecific T wave abnormality Abnormal ECG When compared with ECG of 13-AUG-2022 13:49, Atrial fibrillation is no longer Present Confirmed by Ronaldo Sam ([id number]) on 08/15/2022 2:02:18 PM Referred By: REFERRED SELF Confirmed By:Ronaldo Sam
--- NOTE | 2022-08-15 14:27 | Progress Notes ---
DATE OF SERVICE: 08/15/2022. SUBJECTIVE: Resting comfortably in bed. Pain is well controlled. We talked about pain medication m anagement. Afebrile with stable vital signs. She can dorsiflex and plantarflex and terrie her foot w ith normal or nearly normal strength. Her white count is down to 18,000, hematocrit is 32, platelets are 366. Her remaining labs are noted. X-rays show a hip that is in place on the right side. Good fit distally. A little more spacious pro ximally. Good cement technique. No fractures or evidence of complication. Report noted. Her abduction pillow was slightly loosened, but I did reinforce with her hip precautions. She will h ave PT and OT and will continue with the Eliquis for her DVT prophylaxis. She will likely need acute care rehab versus half-way. Her vitamin D is marginally normal and I think we will continue her on some regular supplementation. Job ID: [id number]
[2022-08-15] MEDS: APIXABAN 5 MG TABLET PO SCH (20:20)
[2022-08-16] MEDS: LEVOTHYROXINE SODIUM 88 MCG TABLET PO SCH (06:04)
[2022-08-16 07:18] LABS: Basophils # (auto) 0.03 K/uL (0-0.2); Basophils % (auto) 0.2 %; Eosinophils # (auto) 0.12 K/uL (0-0.50); Eosinophils % (auto) 0.9 %; Hematocrit (blood only) 27.2 % (37.0-47.0); Hemoglobin 9.2 g/dl (12.0-16.0); Immature Granulocytes # (auto) 0.07 K/uL (0.01-0.20); Immature Granulocytes % (auto) 0.5 %; Lymphocytes % (auto) 6.7 %; Mean Corpuscular Hemoglobin 31.3 pg (25.0-34.0); Mean Corpuscular Hgb Conc 33.8 g/dL (32.0-36.0); Mean Corpuscular Volume 92.5 fL (80.0-100.0); Mean Platelet Volume 10.1 fL (9.4-12.4); Monocytes # (auto) 0.93 K/uL (0.11-0.59); Neutrophils % (auto) 84.7 %; Platelet Count 300 K/uL (130-400); RDW Coefficient of Variation 13.1 % (11.5-14.5); RDW Standard Deviation 44.1 fL (36.4-46.3); Red Blood Count 2.94 M/uL (4.20-5.40); White Blood Count 13.35 K/ul (4.8-10.8)
[2022-08-16 07:39] LABS: BUN Creatinine Ratio 22.7 (10-20); Calcium 8.6 mg/dl (8.6-10.3); Creatinine Clr Calc Pharmacy 30.5 ml/min; Est GFR (African American) 51.9 ml/min; Est GFR (Non-African American) 44.8 ml/min; Magnesium 1.8 mg/dl (1.7-2.4); Potassium 3.6 mmol/L (3.5-5.1)
[2022-08-16] MEDS: DOCUSATE SODIUM/SENNA 50/8.6MG TAB PO SCH (08:43)
[2022-08-16] MEDS: allopurinoL 300 MG TAB PO SCH (08:43)
[2022-08-16] MEDS: SERTRALINE HCL 50 MG TABLET PO SCH (08:44)
[2022-08-16] MEDS: MULTIVITAMIN TAB PO SCH (08:44)
[2022-08-16] MEDS: amLODIPine BESYLATE 5 MG TAB PO SCH (08:45)
[2022-08-16] MEDS: APIXABAN 5 MG TABLET PO SCH ×2 (08:46→20:40)
[2022-08-16] MEDS: oxyCODONE HCL IR 5 MG TAB (IMMEDIATE RELEASE) PO PRN (10:32)
--- NOTE | 2022-08-16 10:38 | Orthopedic Progress Note ---
Date of Service August 16, 2022 Assessment & Plan (1) S/P hip hemiarthroplasty: Plan: The patient was educated regarding today's findings. Conservative care measures were discussed. Her dressing will likely be changed later today. Continue with PT and OT. Weight-bear as tolerated. Continue hip precautions. Her preference would be to go back to [facility] in her apartment, and attend therapy "across the street". She states her in April and she is now on her own. I think she will require more assistance, and may require residential stay. This can be worked out with case management. Continue with DVT prophylaxis. We will continue to follow. Admission and Anticipated Discharge Date Admission Date: August 13, 2022 Subjective This 87-year-old female is seen today in her room. She denies any current complaints. She states she was out of bed and participated in PT yesterday. She did have some pain associated with it. Her right hip does not bother her unless she moves it. She is hoping to go back to her apartment at [facility]. No other complaints. She denies any chest pain, shortness of breath, nausea, or vomiting. Physical Exam Physical Exam: General: Well-developed, well-nourished, elderly female, in no acute distress. Sitting in bed. Alert and oriented. Conversive. Skin: Warm and dry with good turgor. No rashes. Postsurgical dressing is in place on the right hip. No significant ecchymosis. No drainage. Musculoskeletal: The patient has intact motor function of her toes and her ankle. She has limited active motion of the hip secondary to pain. There is discomfort with passive hip flexion as well as internal and external rotation. No pain with palpation over the knee or distal femur. She does have soreness with palpation around the proximal femur. She is unable to perform a straight leg raise. Neurologic: Gross sensation is intact across the right leg by soft touch. Peripheral pulses are 2+. Results & Data Vital Signs (Past 12 Hours) Vital Signs Temp Pulse Pulse Resp BP Pulse Ox O2 Del Method 08/16/22 07:38 78 16 151/75 H 98 Nasal Cannula 08/16/22 03:43 36.5 C 79 18 134/64 90 Nasal Cannula 08/16/22 03:39 36.5 C 77 18 134/64 90 Nasal Cannula 08/15/22 23:00 72 08/15/22 23:28 36.8 C 64 20 137/48 L 97 Nasal Cannula O2 Flow Rate 08/16/22 07:38 2 08/16/22 03:43 2 08/16/22 03:39 2 08/15/22 23:00 08/15/22 23:28 2 Laboratory Results CBC obtained today shows a white count of 13.35. Hemoglobin 9.2, hematocrit 27.2. Platelets 300,000. Electrolytes are unremarkable. BUN of 25 with creatinine 1.1.
--- NOTE | 2022-08-16 16:10 | Hospitalist Progress Note ---
Date of Service August 16, 2022 Assessment & Plan (1) Pre-syncope: Plan: Acute on chronic - high risk - suspect due to pauses. New Afib with conversion pauses 3-4 seconds - EKG normal sinus rhythm with sinus arrhythmia, T wave inversion appreciated in V3 no territorial ST segment changes with QTc 435. Last baseline 2012, NSR without any acute abnormalities - Cardiology consulted, appreciate assistance - S/p pacer placement 08/[address] Sam - Echo completed - wnl - [id number] risk of 4 (high risk) will require indefinite ACT - Started on Eliquis 5mg BID - Maintain continued cardiac monitoring (2) Closed right hip fracture: Plan: Acute R hip fx - moderate risk - Fall secondary to presyncope/new afib w/ conversion pauses - Status post ORIF Dr. Stuart West 08/14/2022 - Apixaban will utilize postoperatively for DVT prevention and for A-fib - Utilize incentive spirometer for atelectasis/pna prevention - PT/OT eval - Pain control ordered with OxyIR, would use APAP first line - Docusate/Senna for bowel regimen - Reviewed Vitamin D, level marginal at 30.1 but is classified as sufficient (btw 20-40), taking 2000 IU at home which can be resumed/continued - CBC reviewed, leukocytosis downtrending without other source of infection or continued antibiotics, UA contaminated appearing CXR negative on admit.? Demargination, continue to follow fever curve (3) Hypothyroidism: Plan: Chronic/stable - Continued on Synthroid - TSH 4.829 with a normal FT4 of 1.08 (4) Hypertension: Plan: Chronic/stable - Previously well controlled, continue amlodipine 5mg daily (5) Depression: Plan: Chronic/stable - Continue Sertraline (6) CKD (chronic kidney disease), stage III: Plan: Chronic/stable - Reviewed BMP, creatinine stable 1.08 - Has declined nephrology follow up in the past Plan Patient would like to return to [facility] but they do not have a bed available until Saturday, PT/OT recommending rehab. Continue PT/OT while inpatient Admission and Anticipated Discharge Date Admission Date: August 13, 2022 Subjective Cathleen is seen at the bedside this morning. She reports that she feels well, is a little achy in her hip when she moves but otherwise has no pain at rest. She has no chest pain, chest pressure, nausea/vomiting/diarrhea. No numbness/tingling in her feet, and reports she has good sensation. Other than some pain in her hip when she is attempting to ambulate, denies other symptoms. Her PT is not safe to return home at current level of function, pending continued PT/rehab. Patient aware. No additional questions at bedside Review of Systems Review of Systems: All systems reviewed & are unremarkable except as noted in Subjective Physical Exam Physical Exam: General: A&Ox3. NAD. Cooperative. HEENT: Atraumatic, normocephalic. Vision and hearing grossly intact Pulm: CTAB A&P. -wheezes, -rales, -rhonchi. Symmetrical chest rise. No increased work of breathing. No respiratory distress. Cardiac: RRR, -mrg. Radial pulses intact and symmetrical. Abdominal: Nontender, nondistended, soft. BS present. Extremities: Right hip with postsurgical dressing in place. Sensation of soft touch intact in the dorsum of the foot bilaterally without asymmetry, PT pulse intact bilaterally. Ankle dorsiflexion/plantarflexion 5/5. Right hip flexion limited by pain while in bed. Tolerates passive hip flexion while in bed but endorses pain with this Results & Data Results & Data Vital Signs (Past 12 Hours) Vital Signs Temp Pulse Pulse Resp BP Pulse Ox O2 Del Method 08/16/22 12:15 36.9 C 08/16/22 11:39 78 18 117/56 L 96 Nasal Cannula 08/16/22 08:00 78 08/16/22 08:00 Nasal Cannula 08/16/22 07:38 78 16 151/75 H 98 Nasal Cannula O2 Flow Rate 08/16/22 12:15 08/16/22 11:39 2 08/16/22 08:00 08/16/22 08:00 2 08/16/22 07:38 2 PG Care Time/CCT Total # of Minutes Spent Total Time Spent with Patient: Total time spent is greater than 50% in coordination of care (as documented) at patient's floor/unit and/or counseling patient: Coding Level of Care Code 83185 SUB INP/OBS CARE 2/35MIN Diagnoses Pre-syncope R55 Closed right hip fracture S72.001A Hypothyroidism E03.9 Hypothyroidism type: acquired Hypertension I10 Hypertension type: essential hypertension Depression F32.9 CKD (chronic kidney disease), stage III N18.3 (3) Hypothyroidism Hypothyroidism type: acquired Qualified Code(s): E03.9 - Hypothyroidism, unspecified (4) Hypertension Hypertension type: essential hypertension Qualified Code(s): I10 - Essential (primary) hypertension
[2022-08-16] MEDS ORDERED: LACTATED RINGER'S 500 ML IV ONE (16:30)
--- NOTE | 2022-08-16 17:02 | Communication Note ---
Date of Service: August 16, 2022 Patient seen this afternoon. States that she has no pain at rest, only with movement. Right hip dressing clean dry and intact. Hip abduction pillow in place. Dressing removed, incision clean, dry and intact. No underlying seroma or hematoma, light dried blood on dressings, no active drainage. Mild tenderness to touch around incision, mild surrounding ecchymosis. No fracture/tape blisters present. New dressing applied, she tolerated well. Change/reinforce dressing PRN. Will re-eval in AM.
[2022-08-16] MEDS: METOPROLOL TARTRATE 25 MG TAB PO SCH (17:43)
[2022-08-17] MEDS: LEVOTHYROXINE SODIUM 88 MCG TABLET PO SCH (05:48)
[2022-08-17 07:33] LABS: Basophils # (auto) 0.04 K/uL (0-0.2); Basophils % (auto) 0.3 %; Eosinophils # (auto) 0.25 K/uL (0-0.50); Eosinophils % (auto) 1.9 %; Hematocrit (blood only) 27.6 % (37.0-47.0); Hemoglobin 9.1 g/dl (12.0-16.0); Immature Granulocytes # (auto) 0.08 K/uL (0.01-0.20); Immature Granulocytes % (auto) 0.6 %; Lymphocytes # (auto) 0.94 K/uL (1.2-3.4); Lymphocytes % (auto) 7.3 %; Mean Corpuscular Hemoglobin 31.6 pg (25.0-34.0); Mean Corpuscular Volume 95.8 fL (80.0-100.0); Mean Platelet Volume 10.4 fL (9.4-12.4); Monocytes # (auto) 0.99 K/uL (0.11-0.59); Monocytes % (auto) 7.6 %; Neutrophils # (auto) 10.66 K/uL (1.40-6.50); Neutrophils % (auto) 82.3 %; Platelet Count 320 K/uL (130-400); RDW Coefficient of Variation 13.2 % (11.5-14.5); RDW Standard Deviation 46.8 fL (36.4-46.3); Red Blood Count 2.88 M/uL (4.20-5.40); White Blood Count 12.96 K/ul (4.8-10.8)
[2022-08-17 07:47] LABS: BUN Creatinine Ratio 23.5 (10-20); Calcium 8.9 mg/dl (8.6-10.3); Creatinine Clr Calc Pharmacy 34.4 ml/min; Est GFR (African American) 59.7 ml/min; Est GFR (Non-African American) 51.5 ml/min; Potassium 3.7 mmol/L (3.5-5.1)
[2022-08-17] MEDS: oxyCODONE HCL IR 5 MG TAB (IMMEDIATE RELEASE) PO PRN (07:58)
[2022-08-17] MEDS: APIXABAN 5 MG TABLET PO SCH ×2 (07:59→20:42)
[2022-08-17] MEDS: METOPROLOL TARTRATE 25 MG TAB PO SCH ×2 (07:59→20:42)
[2022-08-17] MEDS: amLODIPine BESYLATE 5 MG TAB PO SCH (08:00)
[2022-08-17] MEDS: allopurinoL 300 MG TAB PO SCH (08:00)
[2022-08-17] MEDS: MULTIVITAMIN TAB PO SCH (08:01)
[2022-08-17] MEDS: DOCUSATE SODIUM/SENNA 50/8.6MG TAB PO SCH (08:01)
[2022-08-17] MEDS: SERTRALINE HCL 50 MG TABLET PO SCH (08:02)
--- NOTE | 2022-08-17 12:07 | Orthopedic Progress Note ---
Date of Service August 17, 2022 Assessment & Plan (1) S/P hip hemiarthroplasty: Plan: Dressing is intact, last changed 08/16. May reinforce and will be changed as needed Continue with PT and OT. Weight-bear as tolerated and continue hip precautions. Continue with DVT prophylaxis Recommend SNF/Rehabilitation once medically stable. We will continue to follow. Present on Admission?: Yes Admission and Anticipated Discharge Date Admission Date: August 13, 2022 Subjective Patient is a 87 y.o female. She is postop day 3 status post a right hemiarthroplasty. She was seen bedside this AM. BOARD SAW [employer]NER and RN are present. She was a skin finish was being cleaned up. She reports she is not having hip pain. She does report some pain with movement. She denies any fever, chills chest pain or shortness of breath. Review of Systems Review of Systems: Please refer to HPI Physical Exam Physical Exam: General: Patient is in bed just finishing up from getting cleaned up. She is alert and oriented x3 does not appear to be in distress. Skin: Warm and dry with good turgor. No rashes. Dressing was changed yesterday and this is still intact. Negative for any soiling. Negative for erythema or ecchymosis surrounding the area. No palpable fluctuation or induration appreciated. Musculoskeletal: Hip abduction pillow is in place. Once supine she was able to tolerate gentle hip flexion, knee flexion, IR and ER with minimal c/o pain. She is not able to perform a straight leg raise. She is able to actively dorsiflex and plantarflex the ankle. Neurologic: Gross sensation is intact across the right leg by soft touch. Peripheral pulses are 2+. Results & Data Vital Signs (Past 12 Hours) Vital Signs Temp Pulse Pulse Resp BP Pulse Ox O2 Del Method 08/17/22 09:40 72 08/17/22 08:11 36.7 C 71 18 133/69 99 Nasal Cannula 08/17/22 03:20 37.3 C 72 16 123/62 100 Nasal Cannula O2 Flow Rate 08/17/22 09:40 08/17/22 08:11 4.0 08/17/22 03:20 2 Laboratory Results 08/17/22 08/17/22 Range/Units 06:54 06:54 WBC 12.96 H (4.8-10.8) K/ul RBC 2.88 L (4.20-5.40) M/uL Hgb 9.1 L (12.0-16.0) g/dl Hct 27.6 L (37.0-47.0) % MCV 95.8 (80.0-100.0) fL MCH 31.6 (25.0-34.0) pg MCHC 33.0 (32.0-36.0) g/dL RDW Std Deviation 46.8 H (36.4-46.3) fL RDW Coeff of Fabrice 13.2 (11.5-14.5) % Plt Count 320 (130-400) K/uL MPV 10.4 (9.4-12.4) fL Immature Gran % (Auto) 0.6 % Neut % (Auto) 82.3 % Lymph % (Auto) 7.3 % Maries % (Auto) 7.6 % Eos % (Auto) 1.9 % Baso % (Auto) 0.3 % Neut # (Auto) 10.66 H (1.40-6.50) K/uL Lymph # (Auto) 0.94 L (1.2-3.4) K/uL Maries # (Auto) 0.99 H (0.11-0.59) K/uL Eos # (Auto) 0.25 (0-0.50) K/uL Baso # (Auto) 0.04 (0-0.2) K/uL Immature Gran # (Auto) 0.08 (0.01-0.20) K/uL Sodium 138 (136-145) mmol/L Potassium 3.7 (3.5-5.1) mmol/L Chloride 101 (98-107) mmol/L Carbon Dioxide 31 (21-32) mmol/L Anion Gap 6 (3-11) BUN 23 (6-23) mg/dl Creatinine 0.98 (0.6-1.2) mg/dl Est Cr Clr Drug Dosing 34.4 ml/min Est GFR ( Amer) 59.7 ml/min Est GFR (Non-Af Amer) 51.5 ml/min BUN/Creatinine Ratio 23.5 H (10-20) Glucose 110 H (70-99(Fasting)) mg/dl Calcium 8.9 (8.6-10.3) mg/dl
[2022-08-17] MEDS: ACETAMINOPHEN 325 MG TAB PO PRN (12:33)
--- NOTE | 2022-08-17 21:26 | Electrocardiogram Report ---
Test Reason : Blood Pressure : / mmHG Vent. Rate : 103 BPM Atrial Rate : 107 BPM P-R Int : 000 ms QRS Dur : 084 ms QT Int : 338 ms P-R-T Axes : 000 027 173 degrees QTc Int : 442 ms Atrial fibrillation with rapid ventricular response Septal infarct , age undetermined Abnormal ECG When compared with ECG of 15-AUG-2022 09:03, Atrial fibrillation has replaced Sinus rhythm Vent. rate has increased BY 37 BPM Septal infarct is now Present Nonspecific T wave abnormality, improved in Lateral leads Confirmed by Ronaldo Sam ([id number]) on 08/17/2022 9:25:51 PM Referred By: REFERRED SELF Confirmed By:Ronaldo Sam
--- NOTE | 2022-08-17 22:15 | Hospitalist Progress Note ---
Date of Service August 17, 2022 Assessment & Plan (1) Pre-syncope: Plan: Acute on chronic - high risk - suspect due to pauses. New Afib with conversion pauses 3-4 seconds - EKG normal sinus rhythm with sinus arrhythmia, T wave inversion appreciated in V3 no territorial ST segment changes with QTc 435. Last baseline 2012, NSR without any acute abnormalities - Cardiology consulted, appreciate assistance - S/p pacer placement 08/[address] Sam - Echo completed - wnl - [id number] risk of 4 (high risk) will require indefinite ACT - Started on Eliquis 5mg BID - Maintain continued cardiac monitoring (2) Closed right hip fracture: Plan: Acute R hip fx - moderate risk - Fall secondary to presyncope/new afib w/ conversion pauses - Status post ORIF Dr. Stuart West 08/14/2022 - Apixaban will utilize postoperatively for DVT prevention and for A-fib - Utilize incentive spirometer for atelectasis/pna prevention - PT/OT eval - Pain control ordered with OxyIR, would use APAP first line - Docusate/Senna for bowel regimen - Reviewed Vitamin D, level marginal at 30.1 but is classified as sufficient (btw 20-40), taking 2000 IU at home which can be resumed/continued - CBC reviewed, leukocytosis downtrending without other source of infection or continued antibiotics, UA contaminated appearing CXR negative on admit.? Demargination, continue to follow fever curve Appears to be improving. She was more lethargic after taking oxycodone, will consider changing to tramadol. may change tylenol to round the clock scheduled dosing. (3) Hypothyroidism: Plan: Chronic/stable - Continued on Synthroid - TSH 4.829 with a normal FT4 of 1.08 (4) Hypertension: Plan: Chronic/stable - Previously well controlled, continue amlodipine 5mg daily (5) Depression: Plan: Chronic/stable - Continue Sertraline (6) CKD (chronic kidney disease), stage III: Plan: Chronic/stable - Reviewed BMP, creatinine stable 1.08 - Has declined nephrology follow up in the past Plan Patient would like to return to [facility] but they do not have a bed available until Saturday, PT/OT recommending rehab. Continue PT/OT while inpatient Admission and Anticipated Discharge Date Admission Date: August 13, 2022 Subjective 87 yo female reports pain, especially when she moves. Review of Systems Review of Systems: All systems reviewed & are unremarkable except as noted in HPI & below Physical Exam Physical Exam: General: A&Ox3. NAD. Cooperative. HEENT: Atraumatic, normocephalic. Vision and hearing grossly intact Pulm: CTAB A&P. -wheezes, -rales, -rhonchi. Symmetrical chest rise. No increased work of breathing. No respiratory distress. Cardiac: RRR, -mrg. Radial pulses intact and symmetrical. Abdominal: Nontender, nondistended, soft. BS present. Extremities: Right hip with postsurgical dressing in place. Sensation of soft touch intact in the dorsum of the foot bilaterally without asymmetry, PT pulse intact bilaterally. Ankle dorsiflexion/plantarflexion 5/5. Right hip flexion limited by pain while in bed. Tolerates passive hip flexion while in bed but endorses pain with this Results & Data Results & Data Vital Signs (Past 12 Hours) Vital Signs Temp Pulse Pulse Resp BP BP Pulse Ox 08/17/22 20:55 08/17/22 19:28 36.9 C 62 16 132/63 95 08/17/22 16:30 36.4 C L 62 17 122/59 L 98 08/17/22 15:00 60 08/17/22 12:17 37.1 C 60 17 148/83 H 97 O2 Del Method O2 Flow Rate 08/17/22 20:55 Nasal Cannula 2 08/17/22 19:28 Nasal Cannula 2.0 08/17/22 16:30 Nasal Cannula 2.0 08/17/22 15:00 08/17/22 12:17 Nasal Cannula 2.0 PG Care Time/CCT Total # of Minutes Spent Total Time Spent with Patient: Total time spent is greater than 50% in coordination of care (as documented) at patient's floor/unit and/or counseling patient: Coding Level of Care Code 74524 SUB INP/OBS CARE 2/35MIN Diagnoses Pre-syncope R55 Closed right hip fracture S72.001A Hypothyroidism E03.9 Hypothyroidism type: acquired Hypertension I10 Hypertension type: essential hypertension Depression F32.9 CKD (chronic kidney disease), stage III N18.3 (3) Hypothyroidism Hypothyroidism type: acquired Qualified Code(s): E03.9 - Hypothyroidism, unspecified (4) Hypertension Hypertension type: essential hypertension Qualified Code(s): I10 - Essential (primary) hypertension
[2022-08-18] MEDS: LEVOTHYROXINE SODIUM 88 MCG TABLET PO SCH (06:34)
[2022-08-18] MEDS: METOPROLOL TARTRATE 25 MG TAB PO SCH ×2 (08:21→21:13)
[2022-08-18] MEDS: SERTRALINE HCL 50 MG TABLET PO SCH (08:21)
[2022-08-18] MEDS: MULTIVITAMIN TAB PO SCH (08:21)
[2022-08-18] MEDS: allopurinoL 300 MG TAB PO SCH (08:23)
[2022-08-18] MEDS: APIXABAN 5 MG TABLET PO SCH ×2 (08:24→21:14)
[2022-08-18] MEDS: amLODIPine BESYLATE 5 MG TAB PO SCH (08:24)
[2022-08-18] MEDS: DOCUSATE SODIUM/SENNA 50/8.6MG TAB PO SCH (08:24)
[2022-08-18] MEDS: ACETAMINOPHEN 325 MG TAB PO PRN (08:28)
[2022-08-18] MEDS ORDERED: traMADol HCL 50 MG TABLET PO PRN (10:11)
[2022-08-18] MEDS: ACETAMINOPHEN 325 MG TAB PO SCH ×3 (13:43→21:12)
[2022-08-18] MEDS: CELECOXIB 100 MG CAP PO SCH ×2 (13:43→21:13)
--- NOTE | 2022-08-18 23:00 | Hospitalist Progress Note ---
Date of Service August 18, 2022 Assessment & Plan (1) Pre-syncope: Plan: Acute on chronic - high risk - suspect due to pauses. New Afib with conversion pauses 3-4 seconds - EKG normal sinus rhythm with sinus arrhythmia, T wave inversion appreciated in V3 no territorial ST segment changes with QTc 435. Last baseline 2012, NSR without any acute abnormalities - Cardiology consulted, appreciate assistance - S/p pacer placement 08/[address] Sam - Echo completed - wnl - [id number] risk of 4 (high risk) will require indefinite ACT - Started on Eliquis 5mg BID - Maintain continued cardiac monitoring (2) Closed right hip fracture: Plan: Acute R hip fx - moderate risk - Fall secondary to presyncope/new afib w/ conversion pauses - Status post ORIF Dr. Stuart West 08/14/2022 - Apixaban will utilize postoperatively for DVT prevention and for A-fib - Utilize incentive spirometer for atelectasis/pna prevention - PT/OT eval - Pain control ordered with OxyIR, would use APAP first line - Docusate/Senna for bowel regimen - Reviewed Vitamin D, level marginal at 30.1 but is classified as sufficient (btw 20-40), taking 2000 IU at home which can be resumed/continued - CBC reviewed, leukocytosis downtrending without other source of infection or continued antibiotics, UA contaminated appearing CXR negative on admit.? Demargination, continue to follow fever curve Appears to be improving. She was more lethargic after taking oxycodone, will consider changing to tramadol. may change tylenol to round the clock scheduled dosing. Patient has allergy to naprosyn. Will place on rodrigez-2 inhibitor, and closely monitor patient. Will likely require about a 2 week or 4 week course depending on her pain. Her pain appears better controlled on round the clock tylenol and one dose of celebrex. Tramadol ordered as needed, however if she does not require this med, will likley not even prescribe at discharge as she was very sensitive to opiods and this caused confusion (3) Hypothyroidism: Plan: Chronic/stable - Continued on Synthroid - TSH 4.829 with a normal FT4 of 1.08 (4) Hypertension: Plan: Chronic/stable - Previously well controlled, continue amlodipine 5mg daily (5) Depression: Plan: Chronic/stable - Continue Sertraline (6) CKD (chronic kidney disease), stage III: Plan: Chronic/stable - Reviewed BMP, creatinine stable 1.08 - Has declined nephrology follow up in the past Plan Patient would like to return to [facility] but they do not have a bed available until Saturday, PT/OT recommending rehab. Continue PT/OT while inpatient Admission and Anticipated Discharge Date Admission Date: August 13, 2022 Subjective Patient reports no new symptoms. Pain appears to be better tolerated. Review of Systems Review of Systems: All systems reviewed & are unremarkable except as noted in HPI & below Physical Exam Physical Exam: General: A&Ox3. NAD. Cooperative. HEENT: Atraumatic, normocephalic. Vision and hearing grossly intact Pulm: CTAB A&P. -wheezes, -rales, -rhonchi. Symmetrical chest rise. No increased work of breathing. No respiratory distress. Cardiac: RRR, -mrg. Radial pulses intact and symmetrical. Abdominal: Nontender, nondistended, soft. BS present. Extremities: Right hip with postsurgical dressing in place. Sensation of soft touch intact in the dorsum of the foot bilaterally without asymmetry, PT pulse intact bilaterally. Ankle dorsiflexion/plantarflexion 5/5. Right hip flexion limited by pain while in bed. Tolerates passive hip flexion while in bed but endorses pain with this Results & Data Results & Data Vital Signs (Past 12 Hours) Vital Signs Temp Pulse Resp BP BP Pulse Ox O2 Del Method 08/18/22 20:00 Nasal Cannula 08/18/22 19:25 36.9 C 66 18 116/58 L 98 Nasal Cannula 08/18/22 16:00 36.5 C 62 17 132/75 97 Nasal Cannula 08/18/22 11:45 36.9 C 60 17 125/59 L 97 Nasal Cannula O2 Flow Rate 08/18/22 20:00 1 08/18/22 19:25 1 08/18/22 16:00 1.0 08/18/22 11:45 1.0 PG Care Time/CCT Total # of Minutes Spent Total Time Spent with Patient: Total time spent is greater than 50% in coordination of care (as documented) at patient's floor/unit and/or counseling patient: Coding Level of Care Code 90731 SUB INP/OBS CARE 2/35MIN Diagnoses Pre-syncope R55 Closed right hip fracture S72.001A Hypothyroidism E03.9 Hypothyroidism type: acquired Hypertension I10 Hypertension type: essential hypertension Depression F32.9 CKD (chronic kidney disease), stage III N18.3 (3) Hypothyroidism Hypothyroidism type: acquired Qualified Code(s): E03.9 - Hypothyroidism, unspecified (4) Hypertension Hypertension type: essential hypertension Qualified Code(s): I10 - Essential (primary) hypertension
[2022-08-19] MEDS: LEVOTHYROXINE SODIUM 88 MCG TABLET PO SCH (06:33)
[2022-08-19] MEDS: CELECOXIB 100 MG CAP PO SCH ×2 (07:40→20:08)
[2022-08-19] MEDS: ACETAMINOPHEN 325 MG TAB PO SCH ×4 (07:42→20:07)
[2022-08-19] MEDS: allopurinoL 300 MG TAB PO SCH (07:42)
[2022-08-19] MEDS: SERTRALINE HCL 50 MG TABLET PO SCH (07:43)
[2022-08-19] MEDS: METOPROLOL TARTRATE 25 MG TAB PO SCH ×2 (07:43→20:09)
[2022-08-19] MEDS: amLODIPine BESYLATE 5 MG TAB PO SCH (07:43)
[2022-08-19] MEDS: MULTIVITAMIN TAB PO SCH (07:44)
[2022-08-19] MEDS: APIXABAN 5 MG TABLET PO SCH ×2 (07:44→20:08)
[2022-08-19] MEDS: DOCUSATE SODIUM/SENNA 50/8.6MG TAB PO SCH (07:44)
[2022-08-19 11:28] LABS: Hematocrit (blood only) 27.2 % (37.0-47.0); Hemoglobin 9.1 g/dl (12.0-16.0); Mean Corpuscular Hemoglobin 31.5 pg (25.0-34.0); Mean Corpuscular Hgb Conc 33.5 g/dL (32.0-36.0); Mean Corpuscular Volume 94.1 fL (80.0-100.0); Mean Platelet Volume 10.7 fL (9.4-12.4); Platelet Count 469 K/uL (130-400); RDW Coefficient of Variation 12.9 % (11.5-14.5); RDW Standard Deviation 44.4 fL (36.4-46.3); Red Blood Count 2.89 M/uL (4.20-5.40); White Blood Count 11.03 K/ul (4.8-10.8)
[2022-08-19 11:41] LABS: BUN Creatinine Ratio 34.1 (10-20); Calcium 8.6 mg/dl (8.6-10.3); Creatinine Clr Calc Pharmacy 38.4 ml/min; Est GFR (Non-African American) 58.7 ml/min
--- NOTE | 2022-08-19 20:05 | Hospitalist Progress Note ---
Date of Service August 19, 2022 Assessment & Plan (1) Pre-syncope: Plan: Acute on chronic - high risk - suspect due to pauses. New Afib with conversion pauses 3-4 seconds - EKG normal sinus rhythm with sinus arrhythmia, T wave inversion appreciated in V3 no territorial ST segment changes with QTc 435. Last baseline 2012, NSR without any acute abnormalities - Cardiology consulted, appreciate assistance - S/p pacer placement 08/[address] Sam - Echo completed - wnl - [id number] risk of 4 (high risk) will require indefinite ACT - Started on Eliquis 5mg BID - Maintain continued cardiac monitoring (2) Closed right hip fracture: Plan: Acute R hip fx - moderate risk - Fall secondary to presyncope/new afib w/ conversion pauses - Status post ORIF Dr. Stuart West 08/14/2022 - Apixaban will utilize postoperatively for DVT prevention and for A-fib - Utilize incentive spirometer for atelectasis/pna prevention - PT/OT eval - Pain control ordered: did not tolerate oxy IR as patient was confused. - Pain is better controlled with celebrex and tylneol scheduled - Though allergic to naprosyn, patient is tolerating celebrex. - Will likely require about a 2 week or 4 week course depending on her pain. - Docusate/Senna for bowel regimen will be switched to PRN on 08/19 as she has been having loose stools and has not required naroctics - Reviewed Vitamin D, level marginal at 30.1 but is classified as sufficient (btw 20-40), taking 2000 IU at home which can be resumed/continued Tramadol ordered as needed, however if she does not require this med, will likley not even prescribe at discharge as she was very sensitive to opiods and this caused confusion (3) Hypothyroidism: Plan: Chronic/stable - Continued on Synthroid - TSH 4.829 with a normal FT4 of 1.08 (4) Hypertension: Plan: Chronic/stable - Previously well controlled, continue amlodipine 5mg daily (5) Depression: Plan: Chronic/stable - Continue Sertraline (6) CKD (chronic kidney disease), stage III: Plan: Chronic/stable - Reviewed BMP, creatinine stable 1.08 - Has declined nephrology follow up in the past Plan Patient would like to return to [facility] but they do not have a bed available until Saturday, PT/OT recommending rehab. Continue PT/OT while inpatient Admission and Anticipated Discharge Date Admission Date: August 13, 2022 Subjective Patient reports her pain has been controlled. Review of Systems Review of Systems: All systems reviewed & are unremarkable except as noted in HPI & below Physical Exam Physical Exam: General: A&Ox3. NAD. Cooperative. HEENT: Atraumatic, normocephalic. Vision and hearing grossly intact Pulm: CTAB A&P. -wheezes, -rales, -rhonchi. Symmetrical chest rise. No increased work of breathing. No respiratory distress. Cardiac: RRR, -mrg. Radial pulses intact and symmetrical. Abdominal: Nontender, nondistended, soft. BS present. Extremities: Right hip with postsurgical dressing in place. Sensation of soft touch intact in the dorsum of the foot bilaterally without asymmetry, PT pulse intact bilaterally. Ankle dorsiflexion/plantarflexion 5/5. Right hip flexion limited by pain while in bed. Tolerates passive hip flexion while in bed but endorses pain with this Results & Data Results & Data Vital Signs (Past 12 Hours) Vital Signs Temp Pulse Pulse Resp BP Pulse Ox O2 Del Method 08/19/22 19:14 36.6 C 90 19 116/66 90 Room Air 08/19/22 16:00 113 H 08/19/22 15:00 36.9 C 73 17 114/75 94 Room Air 08/19/22 11:54 36.9 C 85 17 104/67 94 Nasal Cannula O2 Flow Rate 08/19/22 19:14 08/19/22 16:00 08/19/22 15:00 08/19/22 11:54 1.0 PG Care Time/CCT Total # of Minutes Spent Total Time Spent with Patient: Total time spent is greater than 50% in coordination of care (as documented) at patient's floor/unit and/or counseling patient: Coding Level of Care Code 28157 SUB INP/OBS CARE 2/35MIN Diagnoses Pre-syncope R55 Closed right hip fracture S72.001A Hypothyroidism E03.9 Hypothyroidism type: acquired Hypertension I10 Hypertension type: essential hypertension Depression F32.9 CKD (chronic kidney disease), stage III N18.3 (3) Hypothyroidism Hypothyroidism type: acquired Qualified Code(s): E03.9 - Hypothyroidism, unspecified (4) Hypertension Hypertension type: essential hypertension Qualified Code(s): I10 - Essential (primary) hypertension
[2022-08-19] MEDS ORDERED: DOCUSATE SODIUM/SENNA 50/8.6MG TAB PO PRN (20:52)
[2022-08-20] MEDS: LEVOTHYROXINE SODIUM 88 MCG TABLET PO SCH (06:05)
[2022-08-20] MEDS: amLODIPine BESYLATE 5 MG TAB PO SCH (08:09)
[2022-08-20] MEDS: MULTIVITAMIN TAB PO SCH (08:09)
[2022-08-20] MEDS: allopurinoL 300 MG TAB PO SCH (08:11)
[2022-08-20] MEDS: CELECOXIB 100 MG CAP PO SCH ×2 (08:12→21:32)
[2022-08-20] MEDS: ACETAMINOPHEN 325 MG TAB PO SCH ×4 (08:12→21:33)
[2022-08-20] MEDS: SERTRALINE HCL 50 MG TABLET PO SCH (08:13)
[2022-08-20] MEDS: METOPROLOL TARTRATE 25 MG TAB PO SCH ×2 (08:13→21:32)
[2022-08-20] MEDS: APIXABAN 5 MG TABLET PO SCH ×2 (08:14→21:32)
[2022-08-20 08:53] LABS: Basophils # (auto) 0.06 K/uL (0-0.2); Basophils % (auto) 0.5 %; Eosinophils # (auto) 0.55 K/uL (0-0.50); Hematocrit (blood only) 27.7 % (37.0-47.0); Immature Granulocytes # (auto) 0.09 K/uL (0.01-0.20); Immature Granulocytes % (auto) 0.8 %; Lymphocytes # (auto) 1.71 K/uL (1.2-3.4); Lymphocytes % (auto) 15.6 %; Mean Corpuscular Hgb Conc 32.5 g/dL (32.0-36.0); Mean Corpuscular Volume 95.5 fL (80.0-100.0); Mean Platelet Volume 10.3 fL (9.4-12.4); Monocytes # (auto) 0.76 K/uL (0.11-0.59); Monocytes % (auto) 6.9 %; Neutrophils # (auto) 7.79 K/uL (1.40-6.50); Neutrophils % (auto) 71.2 %; Platelet Count 454 K/uL (130-400); RDW Coefficient of Variation 12.8 % (11.5-14.5); RDW Standard Deviation 44.9 fL (36.4-46.3); White Blood Count 10.96 K/ul (4.8-10.8)
[2022-08-20 09:12] LABS: BUN Creatinine Ratio 29.9 (10-20); Calcium 8.7 mg/dl (8.6-10.3); Creatinine Clr Calc Pharmacy 35.4 ml/min; Est GFR (African American) 60.4 ml/min; Est GFR (Non-African American) 52.1 ml/min; Potassium 3.8 mmol/L (3.5-5.1)
--- NOTE | 2022-08-20 11:16 | Progress Notes ---
DATE OF SERVICE: 08/20/2022. SUBJECTIVE: Up with OT. Sitting in her chair. No complaints. Says she feels much better. Afebril e with stable vitals. White count is down to 11, hemoglobin 9, hematocrit 28, platelets are 454. On e exam, her dressing is clean and dry and will be changed later by the nurse. She can extend her kne e, flex and extend her ankle and toes with normal strength. There is no significant swelling and her sensation is intact on the right leg. She is status post partial replacement of the right hip. Plan is weightbear as tolerated. PT, OT. Cynthia bowles for DVT prophylaxis. She will need half-way versus acute care rehab. Follow up with mame mcmullen in 2 weeks from the date of surgery. Total hip precautions are reinforced. Use of abduction gregorio w between the knees as much as possible, sitting and sleeping. Job ID: [id number]
--- NOTE | 2022-08-20 14:25 | Hospitalist Progress Note ---
Date of Service August 20, 2022 Assessment & Plan (1) Pre-syncope: Plan: Presented with presyncope leading to fall and hip fracture - suspect due to conversion pauses. New Afib with conversion pauses 3-4 seconds - EKG on admission with normal sinus rhythm with sinus arrhythmia, T wave inversion appreciated in V3 no territorial ST segment changes with QTc 435. Last baseline 2012, NSR without any acute abnormalities -Has had paroxysms of atrial fibrillation since admission - Cardiology consulted, appreciate assistance - S/p pacer placement 08/[address] Sam for tachybradycardia syndrome- doing fine postoperatively-maintain precautions for not reaching overhead the level of the shoulder - Echo completed - wnl - [id number] risk of 4 (high risk) will require indefinite anticoagulation - Started on Eliquis 5mg BID Okay to downgrade off telemetry (2) Closed right hip fracture: Plan: Acute R hip fx - Fall secondary to presyncope/new afib w/ conversion pauses - Status post ORIF Dr. Stuart West 08/14/2022 -Doing well with pain control postoperatively-continue see medicine scheduled, Celebrex scheduled but would recommend making Celebrex as needed after discharge and do not restart home sulindac now that she is on anticoagulation -Apixaban for DVT prevention and for A-fib - Utilize incentive spirometer for atelectasis/pna prevention - PT/OT eval-recommend rehab-placement pending - Docusate/Senna for bowel regimen will be switched to PRN on 08/19 as she has been having loose stools and has not required naroctics - Vitamin D, level marginal at 30.1 but is classified as sufficient (btw 20-40), taking 2000 IU at home which can be resumed for tomorrow (3) Acute respiratory failure with hypoxia: Plan: Patient has been requiring supplemental O2 since admission. Nursing was able to wean her to room air at rest on 08/20, but requiring supplemental O2 when falls asleep With crackles auscultated on examination, chest x-ray from 08/15 with pleural effusions weight is up 3 kg-give Lasix 20 Mg p.o. x1 on 08/20 Monitor I's and O's, Lopez catheter in place but will remove Lopez in the morning after effective Lasix worn off Follow daily weight Wean supplemental O2 as able to keep pulse ox greater than 89% (4) Status post placement of cardiac pacemaker: Plan: Placed on 08/14 for tachybradycardia syndrome Functioning properly Follow-up with cardiology as an outpatient Left upper extremity precautions Okay to downgrade off telemetry (5) Acute blood loss anemia: Plan: Hemoglobin drop from 12-9-with blood loss from fracture and likely a small amount from hip repair surgery Stable for last couple days With reactive leukocytosis and thrombocytosis, both improving Follow CBC as an outpatient (6) Afib: Plan: Found to have new onset paroxysmal atrial fibrillation as above Now on Eliquis, metoprolol With pacemaker in place (7) Hypothyroidism: Plan: Chronic/stable - Continued on Synthroid - TSH 4.829 with a normal FT4 of 1.08 (8) Hypertension: Plan: Chronic/stable - Previously well controlled, continue amlodipine 5mg daily (9) Depression: Plan: Chronic/stable - Continue Sertraline (10) CKD (chronic kidney disease), stage III: Plan: Chronic/stable - creatinine normal - Has declined nephrology follow up in the past (11) Gout: Plan: Continue home allopurinol Plan DVT prophylaxis-Eliquis Disposition-patient would like to return to [facility] but they do not have a bed available until Saturday, PT/OT recommending rehab. Continue PT/OT while inpatient Admission and Anticipated Discharge Date Admission Date: August 13, 2022 Subjective No complaints, pain controlled, eating. Denies CP, SOB, or pain at site of her pacer insertion. Is on 2LNC Tele with paced rhythm, rate in 60s Physical Exam Constitutional: WD/WN, vitals as above Respiratory: normal respiratory effort; no cough Auscultation: + crackles (right base); no rhonchi and no wheezes Cardiovascular: Rate/Rhythm: regular rate and regular rhythm Heart Sounds: no murmur Chest (Breasts): Chest: + pacemaker (left anterior chest,incision c/d/i) Gastrointestinal (Abdomen): normal bowel sounds, soft, nontender, no hepatosplenomegaly Musculoskeletal: Extremities: + extremities abnormal to inspection (right hip dressing intact) Neurologic: no focal motor deficits and not confused Genitourinary: Lopez catheter in place with clear yellow urine Results & Data Results & Data Vital Signs (Past 12 Hours) Vital Signs Temp Pulse Resp BP BP Pulse Ox O2 Del Method 08/20/22 11:17 36.8 C 60 16 157/74 H 100 Room Air 08/20/22 07:30 Nasal Cannula 08/20/22 07:49 36.8 C 67 18 169/75 H 97 Nasal Cannula 08/20/22 03:23 36.8 C 64 18 161/81 H 98 Nasal Cannula O2 Flow Rate 08/20/22 11:17 08/20/22 07:30 2 08/20/22 07:49 2 08/20/22 03:23 2 Laboratory Results CBC, BMP reviewed PG Care Time/CCT Total # of Minutes Spent Total Time Spent with Patient: Total time spent is greater than 50% in coordination of care (as documented) at patient's floor/unit and/or counseling patient: Coding Level of Care Code 89053 SUB INP/OBS CARE 2/35MIN Diagnoses Pre-syncope R55 Closed right hip fracture S72.001A Acute respiratory failure with hypoxia J96.01 Status post placement of cardiac pacemaker Z95.0 Acute blood loss anemia D62 Afib I48.0 Atrial fibrillation type: paroxysmal Hypothyroidism E03.9 Hypothyroidism type: acquired Hypertension I10 Hypertension type: essential hypertension Depression F32.9 CKD (chronic kidney disease), stage III N18.3 Gout M10.9 (6) Afib Atrial fibrillation type: paroxysmal Qualified Code(s): I48.0 - Paroxysmal atrial fibrillation (7) Hypothyroidism Hypothyroidism type: acquired Qualified Code(s): E03.9 - Hypothyroidism, unspecified (8) Hypertension Hypertension type: essential hypertension Qualified Code(s): I10 - Essential (primary) hypertension
[2022-08-20] MEDS ORDERED: FUROSEMIDE 20 MG TAB PO ONE (14:30)
[2022-08-21] MEDS: LEVOTHYROXINE SODIUM 88 MCG TABLET PO SCH (06:17)
[2022-08-21] MEDS: SERTRALINE HCL 50 MG TABLET PO SCH (08:56)
[2022-08-21] MEDS: METOPROLOL TARTRATE 25 MG TAB PO SCH ×2 (08:57→21:10)
[2022-08-21] MEDS: APIXABAN 5 MG TABLET PO SCH ×2 (08:58→21:10)
[2022-08-21] MEDS: allopurinoL 300 MG TAB PO SCH (08:58)
[2022-08-21] MEDS: ACETAMINOPHEN 325 MG TAB PO SCH ×4 (08:58→21:09)
[2022-08-21] MEDS: CELECOXIB 100 MG CAP PO SCH ×2 (08:58→21:10)
[2022-08-21] MEDS: CHOLECALCIFEROL 1,000 UNITS 25 MCG TAB PO SCH (08:59)
[2022-08-21] MEDS: MULTIVITAMIN TAB PO SCH (08:59)
[2022-08-21] MEDS: amLODIPine BESYLATE 5 MG TAB PO SCH (09:00)
--- NOTE | 2022-08-21 09:26 | Orthopedic Progress Note ---
Date of Service August 21, 2022 Assessment & Plan (1) S/P hip hemiarthroplasty: Plan: Patient is postop day #7 status post right hip hemiarthroplasty Patient is doing well. Her dressing is intact and clean May reinforce and will be changed as needed Continue with PT and OT. Weight-bear as tolerated with assistive device and continue hip precautions. Continue with DVT prophylaxis Anticipate transitioning to SNF/Rehabilitation once medically stable. Patient has follow-up appointment in our office as outpatient on 08/[address] West for staple removal. Present on Admission?: Yes Admission and Anticipated Discharge Date Admission Date: August 13, 2022 Subjective Patient is an 87-year-old female who is postop day #7 status post a right hip hemiarthroplasty. She has since been transitioned to the floor. She is sitting upright in bed just finished breakfast. She is alert and oriented x3 pleasant and conversive. She reports she is not having much pain in her hip at all. She states the hip is starting to feel really good. She denies any groin pain with participation of therapy. She denies any calf pain. She offers no concerns. She denies fever, chills, chest pain, shortness of breath, dizziness, nausea, vomiting, or abdominal pain. Review of Systems Review of Systems: Please refer to HPI Physical Exam Physical Exam: General: Patient is sitting upright in bed alert and oriented x3 does not appear to be in distress. Conversive Skin: Warm and dry with good turgor. No rashes. Dressing is intact and negative for any soiling. Negative for erythema or ecchymosis surrounding the area. No palpable fluctuation or induration appreciated with palpation. Musculoskeletal: Hip abduction pillow is in place. She is able to tolerate gentle active range of motion of the right lower extremity. She is able to flex the knee and hip and extend without complaints of pain. She tolerates gentle active assist internal and external rotation. She is able to actively dorsiflex and plantarflex the ankle. Her calf is soft and nontender. Dorsal pedis pulses 2 Neurologic: Gross sensation is intact across the right leg by soft touch. Results & Data Vital Signs (Past 12 Hours) Vital Signs Temp Pulse Resp BP BP Pulse Ox O2 Del Method 08/21/22 08:55 71 178/74 H 08/21/22 07:10 Nasal Cannula 08/21/22 07:22 37.0 C 65 16 177/80 H 96 Room Air 08/20/22 21:30 Nasal Cannula 08/20/22 22:05 36.9 C 60 18 139/64 96 Nasal Cannula 08/20/22 21:28 37.0 C 62 16 157/78 H 96 Room Air O2 Flow Rate 08/21/22 08:55 08/21/22 07:10 1 08/21/22 07:22 08/20/22 21:30 1 08/20/22 22:05 1 08/20/22 21:28
--- NOTE | 2022-08-21 14:28 | Communication Note ---
Date of Service: August 21, 2022 Right hip incision evaluated today. Elaina retained, ecchymosis surrounding incision, no underlying hematoma or seroma. Mild tenderness around incision. N o active drainage. New dressing applied with 4x4's and tegaderm. Follow up next week as scheduled.
--- NOTE | 2022-08-21 21:58 | Hospitalist Progress Note ---
Date of Service August 21, 2022 Assessment & Plan (1) Pre-syncope: Plan: Presented with presyncope leading to fall and hip fracture - suspect due to conversion pauses. New Afib with conversion pauses 3-4 seconds - EKG on admission with normal sinus rhythm with sinus arrhythmia, T wave inversion appreciated in V3 no territorial ST segment changes with QTc 435. Last baseline 2012, NSR without any acute abnormalities -Has had paroxysms of atrial fibrillation since admission - Cardiology consulted, appreciate assistance - S/p pacer placement 08/[address] Sam for tachybradycardia syndrome- doing fine postoperatively-maintain precautions for not reaching overhead the level of the shoulder - Echo completed - wnl - [id number] risk of 4 (high risk) will require indefinite anticoagulation - Started on Eliquis 5mg BID Okay to downgrade off telemetry (2) Closed right hip fracture: Plan: Acute R hip fx - Fall secondary to presyncope/new afib w/ conversion pauses - Status post ORIF Dr. Stuart West 08/14/2022 -Doing well with pain control postoperatively-continue see medicine scheduled, Celebrex scheduled but would recommend making Celebrex as needed after discharge and do not restart home sulindac now that she is on anticoagulation -Apixaban for DVT prevention and for A-fib - Utilize incentive spirometer for atelectasis/pna prevention - PT/OT eval-recommend rehab-placement pending - Docusate/Senna for bowel regimen will be switched to PRN on 08/19 as she has been having loose stools and has not required naroctics - Vitamin D, level marginal at 30.1 but is classified as sufficient (btw 20-40), taking 2000 IU at home which can be resumed for tomorrow Orered c diffon 08/21, this was negative. (3) Acute respiratory failure with hypoxia: Plan: Patient has been requiring supplemental O2 since admission. Nursing was able to wean her to room air at rest on 08/20, but requiring supplemental O2 when falls asleep With crackles auscultated on examination, chest x-ray from 08/15 with pleural effusions weight is up 3 kg-give Lasix 20 Mg p.o. x1 on 08/20 Monitor I's and O's, Lopez catheter in place but will remove Lopez in the morning after effective Lasix worn off Follow daily weight Wean supplemental O2 as able to keep pulse ox greater than 89% (4) Status post placement of cardiac pacemaker: Plan: Placed on 08/14 for tachybradycardia syndrome Functioning properly Follow-up with cardiology as an outpatient Left upper extremity precautions Okay to downgrade off telemetry (5) Acute blood loss anemia: Plan: Hemoglobin drop from 12-9-with blood loss from fracture and likely a small amount from hip repair surgery Stable for last couple days With reactive leukocytosis and thrombocytosis, both improving Follow CBC as an outpatient (6) Afib: Plan: Found to have new onset paroxysmal atrial fibrillation as above Now on Eliquis, metoprolol With pacemaker in place (7) Hypothyroidism: Plan: Chronic/stable - Continued on Synthroid - TSH 4.829 with a normal FT4 of 1.08 (8) Hypertension: Plan: Chronic/stable - Previously well controlled, continue amlodipine 5mg daily (9) Depression: Plan: Chronic/stable - Continue Sertraline (10) CKD (chronic kidney disease), stage III: Plan: Chronic/stable - creatinine normal - Has declined nephrology follow up in the past (11) Gout: Plan: Continue home allopurinol Plan DVT prophylaxis-Eliquis Disposition-patient would like to return to [facility] but they do not have a bed available until Saturday, PT/OT recommending rehab. Continue PT/OT while inpatient Admission and Anticipated Discharge Date Admission Date: August 13, 2022 Subjective Patient reports no new symptoms Review of Systems Review of Systems: All systems reviewed & are unremarkable except as noted in HPI & below Physical Exam Physical Exam: Constitutional: WD/WN, vitals as above Respiratory: normal respiratory effort; no cough Auscultation: + crackles (right base); no rhonchi and no wheezes Cardiovascular: Rate/Rhythm: regular rate and regular rhythm Heart Sounds: no murmur Chest (Breasts): Chest: + pacemaker (left anterior chest,incision c/d/i) Gastrointestinal (Abdomen): normal bowel sounds, soft, nontender, no hepatosplenomegaly Musculoskeletal: Extremities: + extremities abnormal to inspection (right hip dressing intact) Neurologic: no focal motor deficits and not confused Genitourinary: Lopez catheter in place with clear yellow urine Results & Data Results & Data Vital Signs (Past 12 Hours) Vital Signs Temp Pulse Resp BP BP Pulse Ox O2 Del Method 08/21/22 21:06 36.4 C L 61 14 168/85 H 97 Nasal Cannula 08/21/22 19:43 Nasal Cannula 08/21/22 14:49 36.5 C 64 16 135/65 97 Room Air 08/21/22 10:12 60 17 160/82 H 97 Nasal Cannula O2 Flow Rate 08/21/22 21:06 1 08/21/22 19:43 1 08/21/22 14:49 08/21/22 10:12 PG Care Time/CCT Total # of Minutes Spent Total Time Spent with Patient: Total time spent is greater than 50% in coordination of care (as documented) at patient's floor/unit and/or counseling patient: Coding Level of Care Code 75301 SUB INP/OBS CARE 2/35MIN Diagnoses Pre-syncope R55 Closed right hip fracture S72.001A Acute respiratory failure with hypoxia J96.01 Status post placement of cardiac pacemaker Z95.0 Acute blood loss anemia D62 Afib I48.0 Atrial fibrillation type: paroxysmal Hypothyroidism E03.9 Hypothyroidism type: acquired Hypertension I10 Hypertension type: essential hypertension Depression F32.9 CKD (chronic kidney disease), stage III N18.3 Gout M10.9 (6) Afib Atrial fibrillation type: paroxysmal Qualified Code(s): I48.0 - Paroxysmal atrial fibrillation (7) Hypothyroidism Hypothyroidism type: acquired Qualified Code(s): E03.9 - Hypothyroidism, unspecified (8) Hypertension Hypertension type: essential hypertension Qualified Code(s): I10 - Essential (primary) hypertension
[2022-08-22] MEDS: LEVOTHYROXINE SODIUM 88 MCG TABLET PO SCH (05:49)
[2022-08-22] MEDS: ACETAMINOPHEN 325 MG TAB PO SCH ×2 (05:55→12:26)
[2022-08-22] MEDS: amLODIPine BESYLATE 5 MG TAB PO SCH (08:13)
[2022-08-22] MEDS: SERTRALINE HCL 50 MG TABLET PO SCH (08:13)
[2022-08-22] MEDS: CHOLECALCIFEROL 1,000 UNITS 25 MCG TAB PO SCH (08:13)
[2022-08-22] MEDS: METOPROLOL TARTRATE 25 MG TAB PO SCH (08:14)
[2022-08-22] MEDS: CELECOXIB 100 MG CAP PO SCH (08:14)
[2022-08-22] MEDS: APIXABAN 5 MG TABLET PO SCH (08:14)
[2022-08-22] MEDS: MULTIVITAMIN TAB PO SCH (08:14)
[2022-08-22] MEDS: allopurinoL 300 MG TAB PO SCH (08:15)
--- NOTE | 2022-08-22 13:45 | Discharge Summary ---
Date of Service August 22, 2022 Admission HPI Per Admitting Provider Cathleen is an 87-year-old female with a past medical history of hypothyroidism, hypertension, hyperlipidemia, CKD, and gout on amlodipine who was lightheaded and dizzy while standing and fell sustaining a mildly impacted, displaced transcervical fracture of the right femur. CThead motion degraded, but without acute intracranial abnormality. CT of the C-spine shows no fractures or subluxation of the C-spine. Generative changes are noted. Cathleen is seen at the bedside. She reports that she was walking and went to her closet when she suddenly had a dizzy spell which caused her to fall. She did not lose consciousness completely, but fell and struck her hip and immediately could not bear weight on her right leg. She reports she has not had chest pain, chest pressure, shortness of breath, or difficulty breathing at any point but has had several spells of dizziness in the preceding days/weeks which seem to come on out of nowhere and are not necessarily triggered by standing. She reports her blood pressure is normally slightly high, and adequately controlled with amlodipine. She does not take any beta-blockers or other heart medicines. She has not had any history of heart attacks, PCI, bypass. Denies tobacco product use, endorses intermittent social alcohol use Mediterranean diet, outpatient lipid checks last with LDL 105, is not on a statin and diet control 7. She reports other than feeling head and dizzy she has not been sick and has had no symptoms of being sick. She denies cough, sputum production, congestion, abdominal pain, nausea/vomiting/diarrhea, numbness and tingling, skin wounds, an d areas of pain other than her right hip since following Medical History: Reviewed Medications: Reviewed Surgical History: Reviewed Family history: Reviewed Allergies: Reviewed Social History: Denies tobacco use, endorses social alcohol use. No recreational drug use Code Status: DNR/DNI, discussed at bedside Principal Diagnosis pre-syncope Discharge Exam Constitutional: WD/WN, vitals as above Respiratory: normal respiratory effort; no cough Auscultation: + crackles (right base); no rhonchi and no wheezes Cardiovascular: Rate/Rhythm: regular rate and regular rhythm Heart Sounds: no murmur Chest (Breasts): Chest: + pacemaker (left anterior chest,incision c/d/i) Gastrointestinal (Abdomen): normal bowel sounds, soft, nontender, no hepatosplenomegaly Musculoskeletal: Extremities: + extremities abnormal to inspection (right hip dressing intact) Neurologic: no focal motor deficits and not confused Genitourinary: Lopez catheter in place with clear yellow urine Discharge Data Allergies Allergy/AdvReac Type Severity Reaction Status Date / Time atenolol Allergy Unknown Verified 06/25/22 13:44 chlorthalidone Allergy Unknown Verified 06/25/22 13:44 enalapril Allergy Unknown Verified 06/25/22 13:44 iodine Allergy Unknown Verified 06/25/22 13:44 shellfish derived Allergy Unknown Verified 06/25/22 13:44 Sulfa (Sulfonamide Allergy Unknown Verified 06/25/22 13:44 Antibiotics) amoxicillin [From Augmentin] Allergy Nausea and Verified 06/25/22 13:44 vomitting Beta-Blockers Allergy Verified 06/25/22 13:44 (Beta-Adrenergic Bloc clavulanic acid Allergy Verified 06/25/22 13:44 [From Augmentin] enalaprilat [From Vasotec] Allergy Verified 06/25/22 13:44 naproxen [From Aleve] Allergy Hives with Verified 06/25/22 13:44 throat swelling. Consultations 08/13/22 13:12 ED Decision to Admit Stat 08/13/22 14:09 Consult Cardiology Stat Consult Orthopedic Surgery Routine Procedures Performed Operation Date: 08/14/22 11:00 Actual Procedures p Pacer with A/V Leads (Dual) - Ronaldo Sam MD Ordered Studies 08/13/22 12:03 CT cervical spine wo con Stat CT head/brain wo con Stat 08/14/22 06:45 EP Lab Images for PACS ONCE Hospital Course (1) Pre-syncope: Presented with presyncope leading to fall and hip fracture - suspect due to conversion pauses. New Afib with conversion pauses 3-4 seconds - EKG on admission with normal sinus rhythm with sinus arrhythmia, T wave inversion appreciated in V3 no territorial ST segment changes with QTc 435. Last baseline 2012, NSR without any acute abnormalities -Has had paroxysms of atrial fibrillation since admission - Cardiology consulted, appreciate assistance - S/p pacer placement 08/[address] Sam for tachybradycardia syndrome- doing fine postoperatively-maintain precautions for not reaching overhead the level of the shoulder - Echo completed - wnl - [id number] risk of 4 (high risk) will require indefinite anticoagulation - Started on Eliquis 5mg BID will discharged. (2) Closed right hip fracture: Acute R hip fx - Fall secondary to presyncope/new afib w/ conversion pauses - Status post ORIF Dr. Stuart West 08/14/2022 -Doing well with pain control postoperatively-continue see medicine scheduled, Celebrex scheduled but would recommend making Celebrex as needed after discharge and do not restart home sulindac now that she is on anticoagulation -Apixaban for DVT prevention and for A-fib - Utilize incentive spirometer for atelectasis/pna prevention - PT/OT eval-recommend rehab-placement pending - Docusate/Senna for bowel regimen will be switched to PRN on 08/19 as she has been having loose stools and has not required naroctics - Vitamin D, level marginal at 30.1 but is classified as sufficient (btw 20-40), taking 2000 IU at home which can be resumed for tomorrow Agustina pinzon 08/21, this was negative. (3) Acute respiratory failure with hypoxia: Patient has been requiring supplemental O2 since admission. Nursing was able to wean her to room air at rest on 08/20, but requiring supplemental O2 when falls asleep With crackles auscultated on examination, chest x-ray from 08/15 with pleural effusions weight is up 3 kg-give Lasix 20 Mg p.o. x1 on 08/20 Monitor I's and O's, Lopez catheter in place but will remove Lopez in the morning after effective Lasix worn off Follow daily weight Wean supplemental O2 as able to keep pulse ox greater than 89% (4) Status post placement of cardiac pacemaker: Placed on 08/14 for tachybradycardia syndrome Functioning properly Follow-up with cardiology as an outpatient Left upper extremity precautions (5) Acute blood loss anemia: Hemoglobin drop from 12-9-with blood loss from fracture and likely a small amount from hip repair surgery Stable for last couple days With reactive leukocytosis and thrombocytosis, both improving Follow CBC as an outpatient will defer to PCP (6) Afib: Found to have new onset paroxysmal atrial fibrillation as above Now on Eliquis, metoprolol With pacemaker in place (7) Hypothyroidism: Chronic/stable - Continued on Synthroid - TSH 4.829 with a normal FT4 of 1.08 (8) Hypertension: Chronic/stable - Previously well controlled, continue amlodipine 5mg daily (9) Depression: Chronic/stable - Continue Sertraline (10) CKD (chronic kidney disease), stage III: Chronic/stable - creatinine normal - Has declined nephrology follow up in the past (11) Gout: Continue home allopurinol Plan DVT prophylaxis-Eliquis Total Time Total Time Spent Total Time Spent (In Minutes): 32 Discharge Plan Discharge Items Patient Disposition: Transfer Snf Fac Reason For Visit: HIP FXR, NEAR SYNCOPE Discharge Diagnosis: Hip fracture Condition on Discharge: Fair Activity: Per Instructions section Weightbearing: Right weightbearing Weightbearing Comment: with walker assistance Non-emergency contact: Surgeon Call non-emergency contact if: you have any medication questions, your pain is not controlled, your temperature is above 101, your wound has increased redness and your wound has increased drainage Follow-up/Referrals: Stuart Mathis MD [Primary Care Provider] - Ronaldo Sam MD [Physician] - 09/17/22 10:00 am Stuart West MD [Surgeon] - 08/27/22 2:00 pm Diet: Regular Addtl Attending Provider Instructions: recommend followup with PCP in 2 weeks Addtl Arts Administrator Provider Instructions: Orthopedic instructions: - Weight-bear as tolerated right lower extremity. Use walker to assist with ambulation. - Posterior hip precautions right hip at all times. - Ice to right hip as needed for pain and swelling. - Elevate right lower extremity as needed for pain and swelling. - Allowed for full range of motion of the right knee and right ankle. - WINSTON stockings on bilateral lower extremities; on during the day and off at night. - Physical therapy and Occupational Therapy as warranted. - Keep incision covered with a light dressing. Change daily or as needed. - Starting on August 18, 2022 you may shower. Okay to get the incision wet. Pat th e incision dry and recover with a light dressing. Let the soap and water run over the incision. Do not soak or submerge the incision. - Call [phone] with any increased pain, swelling, drainage from incision, fevers or chills. - Follow-up as scheduled with Dr. West. ACTIVITY RECOMMENDATIONS: * Do not raise affected arm over head for 2 weeks. SPECIAL CARE INSTRUCTIONS: * If bleeding occurs, apply direct pressure to area for 5 minutes. * Call your doctor if you have severe pain, fever, drainage or bleeding at sit e. * Keep any scheduled doctor's appointment. * Implant Card - hand held device with website information given. SKIN IRRITATION: * You may experience some redness and/or swelling in the area where radiation was administered. If any skin irritation occurs, please contact your family physician. FOLLOW UP VISIT: Keep any scheduled doctor appointments. Pending Studies at Discharge: No Stand-Alone Forms: My [facility] [employer], Smoking Cessation Medications and DC Order Prescriptions: New acetaminophen 325 mg Tablet 650 mg PO QID 21 Days Qty: 168 0RF amlodipine [Norvasc] 5 mg Tablet 5 mg PO DAILY Qty: 30 0RF celecoxib [Celebrex] 100 mg Capsule 100 mg PO BID 14 Days Qty: 28 0RF Eliquis 5 mg Tablet 5 mg PO BID Qty: 60 0RF Continued sertraline 50 mg tablet See Rx Instructions .ROUTE .COMPLEX Qty: 135 3RF Dose Instruction: TAKE 1 AND 1/2 TABLETS BY MOUTH EVERY DAY Rx Instructions: TAKE 1 AND 1/2 TABLETS BY MOUTH EVERY DAY levothyroxine 88 mcg tablet 88 mcg PO DAILY Qty: 90 3RF allopurinol 300 mg tablet 300 mg PO .COMPLEX Patient Comments: 300 mg PO Take 1/2 tablet daily; Rx Instructions: 300 mg PO Take 1/2 tablet daily; multivitamin tablet 1 tab PO DAILY cholecalciferol (vitamin D3) 25 mcg (1,000 unit) tablet 2,000 units PO DAILY Discontinued amlodipine 5 mg tablet See Rx Instructions .ROUTE .COMPLEX Qty: 90 3RF Dose Instruction: TAKE ONE TABLET BY MOUTH EVERY DAY Rx Instructions: TAKE ONE TABLET BY MOUTH EVERY DAY sulindac 200 mg tablet 200 mg PO DAILY Qty: 60 0RF Discharge Orders: Discharge Order (Routine); Ordered 08/22/22 Ordered By: Oliver Crisostomo Admission Data Admit Date/Time: 08/13/22 15:33 Attending Provider: Oliver Crisostomo Admit Provider: Stuart Lebron Primary Care Provider: Stuart Mathis Other Providers: Jennifer Morelos ; Marquis Aleman ; Stuart Lebron ; Ronaldo Sam ; Stuart West Other Interventions: Discharge Summary Assessment (RN) Last Done: 08/22/22 14:25 Coding Level of Care Code 23047 INP/OBS DISCH >30 MIN Diagnoses Pre-syncope R55 Closed right hip fracture S72.001A Acute respiratory failure with hypoxia J96.01 Status post placement of cardiac pacemaker Z95.0 Acute blood loss anemia D62 Afib I48.0 Atrial fibrillation type: paroxysmal Hypothyroidism E03.9 Hypothyroidism type: acquired Hypertension I10 Hypertension type: essential hypertension Depression F32.9 CKD (chronic kidney disease), stage III N18.3 Gout M10.9
== END 2022-08-22 15:00 | DRG 242 ==
LOC: ED 11:33 → 2E 15:33 → SUATTDRO 15:33 → 2E 16:30 → 3W 08-20 17:08

== ENCOUNTER 2023-03-02 15:08 | Observation (INO) ==
[2023-03-02 16:49] LABS: Basophils # (auto) 0.07 K/uL (0.00-0.20); Basophils % (auto) 0.7 %; Eosinophils # (auto) 0.32 K/uL (0.00-0.50); Eosinophils % (auto) 3.3 %; Immature Granulocytes # (auto) 0.05 K/uL (0.01-0.20); Immature Granulocytes % (auto) 0.5 %; Lymphocytes # (auto) 1.52 K/uL (1.20-3.40); Lymphocytes % (auto) 15.5 %; Mean Corpuscular Hemoglobin 30.4 pg (25.0-34.0); Mean Corpuscular Hgb Conc 34.4 g/dL (32.0-36.0); Mean Corpuscular Volume 88.4 fL (80.0-100.0); Mean Platelet Volume 10.5 fL (9.4-12.4); Monocytes # (auto) 0.58 K/uL (0.11-0.59); Monocytes % (auto) 5.9 %; Neutrophils # (auto) 7.29 K/uL (1.40-6.50); Neutrophils % (auto) 74.1 %; Platelet Count 569 K/uL (130-400); RDW Coefficient of Variation 14.3 % (11.5-14.5); Red Blood Count 3.62 M/uL (4.20-5.40); White Blood Count 9.83 K/ul (4.8-10.8)
[2023-03-02] MEDS ORDERED: XYLOCAINE 1%/SOD BICARB 20 ML VIAL INFIL ONE (17:02)
--- NOTE | 2023-03-02 17:04 | CT Scan Report ---
CT SCAN OF THE BRAIN WITHOUT IV CONTRAST CLINICAL HISTORY: Syncope. Fall. COMPARISON STUDY: CT of the brain dated 08/13/2022. TECHNIQUE: Unenhanced axial CT scan of the brain is performed from the vertex to the skull base. A do se lowering technique was utilized adhering to the principles of ALARA. FINDINGS: Brain parenchyma: There is age-related involutional change noting moderate to advanced subcortical an d periventricular microangiopathic disease. There is no hemorrhage, mass effect, or evidence of acute territorial ischemia by CT criteria. 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 Jaramillo-whi te matter differentiation is preserved. No extra-axial fluid collection is seen. Ventricles, sulci, cisterns: Prominent secondary to involutional change. Intracranial vasculature: There is atherosclerotic calcification of the cavernous carotid artery. Calvarium: The skeletal structures are osteopenic. No depressed calvarial fracture is identified. Sinuses and mastoids: The visualized paranasal sinuses are clear. The mastoid air cells are well pneu matized. Orbits: The bony orbits are grossly intact. There are bilateral ocular lens implants. IMPRESSION: There is no hemorrhage, mass effect, or evidence of acute territorial ischemia by CT edgardo vallejo. ACT 112: Negative or not required by law. Electronically signed by: Sung Jose M.D. 03/02/2023 5:02 PM
[2023-03-02 17:10] LABS: Albumin Globulin Ratio 1.5 (0.9-2); Albumin Level 3.9 gm/dl (3.4-5.0); BUN Creatinine Ratio 16.7 (10-20); Bilirubin,Total 0.5 mg/dl (0.2-1.0); Calcium 9.6 mg/dl (8.6-10.3); Est GFR (African American) 53.1 ml/min; Est GFR (Non-African American) 45.8 ml/min; Globulin 2.6 gm/dl (2.5-4.0); Magnesium 1.5 mg/dl (1.7-2.4); Potassium 3.8 mmol/L (3.5-5.1); Total Protein 6.5 gm/dl (6.0-8.3)
--- NOTE | 2023-03-02 17:10 | CT Scan Report ---
CT SCAN OF THE CERVICAL SPINE CLINICAL HISTORY: Trauma. Syncope. Fall. COMPARISON STUDY: CT scan of the cervical spine dated 08/13/2022. TECHNIQUE: CT scan of the cervical spine is performed from the skull base to the upper thoracic spine . Images are reviewed in the axial, sagittal, and coronal planes. IV contrast was not administered fo r this examination. A dose lowering technique was utilized adhering to the principles of ALARA. CT DOSE: 918.97 mGy.cm FINDINGS: Skeletal structures: The skeletal structures are osteopenic. There is no evidence of fracture or subl uxation involving the cervical spine. Vertebral body height and alignment are maintained. Anterior os teophytes are seen throughout. There is hyperlordosis. The odontoid process and lateral masses are i ntact. The atlantoaxial articulation is preserved noting productive degenerative change. The spinous processes appear intact. There are minimal chronic superior compression deformities of T1 and T3. The re is mild multilevel facet arthropathy. Intervertebral discs: Moderate disc space narrowing is seen at C5-C6. Mild narrowing is noted at the remaining cervical levels. Central canal: Posterior disc osteophyte complexes at C4-C5, C5-C6, and C6-C7 may contribute to acqui red compromise of the central canal. Soft tissues: The prevertebral and paraspinous soft tissues are within normal limits. There is athero sclerotic calcification of the carotid bulbs. Pacemaker leads are noted at the left thoracic inlet. Calvarium: The visualized calvarium at the skull base appears intact. Brain parenchyma: Partially visualized brain parenchyma at the skull base is within normal limits. Sinuses and mastoids: The visualized paranasal sinuses are clear. The mastoid air cells are well pneu matized. Lung apices: Clear as visualized. IMPRESSION: 1. There is no evidence of cervical spine fracture or subluxation. 2. Osteopenia and spondylotic changes above. ACT 112: Negative or not required by law. Electronically signed by: Sung Jose M.D. 03/02/2023 5:08 PM
[2023-03-02 17:14] LABS: Troponin I High Sensitivity 7.4 pg/ml (0-14)
[2023-03-02 17:23] LABS: Thyroid Stimulating Hormone 2.483 uIu/ml (0.300-4.500)
[2023-03-02] MEDS ORDERED: CHLORHEXIDINE GLUCONATE 4% SOL 4OZ BTL EXT ONE (17:27)
[2023-03-02] MEDS ORDERED: MAGNESIUM SULFATE / D5W 1 GM/100 ML BAG IV ONE (17:38)
--- NOTE | 2023-03-02 18:08 | XRay Report ---
SINGLE VIEW CHEST CLINICAL HISTORY: Fall. FINDINGS: An AP, portable, upright chest radiograph is compared to study dated 08/15/2022. A 2-lead car diac pacemaker is unchanged in position. The heart is enlarged noting atherosclerotic calcification o f the thoracic aorta. The pulmonary vasculature is noncongested. Chronic interstitial thickening is s imilar to previous. Mild scarring/atelectasis is noted at the lung bases. No airspace consolidation o r large pleural effusion is identified. No pneumothorax is seen. The skeletal structures are osteopen ic. The bony thorax is grossly intact. IMPRESSION: 1. Cardiomegaly and cardiac pacemaker without radiographic evidence of congestive failure. 2. No airspace consolidation or large pleural effusion is identified. ACT 112: Negative or not required by law. Electronically signed by: Sung Jose M.D. 03/02/2023 6:06 PM
--- NOTE | 2023-03-02 18:17 | Emergency Department Note ---
ED Visit Note Patient was seen and evaluated by Dr. Mccann. I was involved for wound management of the right ear. Patient has a 3 cm right external ear laceration involving the anterior ear structures. The laceration is in the horizontal plane with a slight curvilinear distribution that ascends slightly superior as the laceration tracks medially from the helix to the antihelix. There does appear to be a small amount of cartilaginous disruption. This is not a through and through injury. No evidence of posterior ear laceration. Risks and benefits of performing primary wound closure versus no repair were discussed with the patient who verbalizes understanding. Verbal consent was obtained prior to performing the procedure. 2.5 cc of 1% buffered lidocaine without epinephrine was used to anesthetize the right ear laceration. The wound was cleansed and prepped in the typical sterile fashion utilizing normal saline and a small amount of chlorhexidine noting the patient's iodine allergy. The wound was sterilely draped. Once proper anesthetization was established, the wound was further examined and demonstrated small cartilaginous involvement without evidence of through and through injury. The wound was copiously irrigated with normal saline. The integument portion of the wound was closed using 11 simple, 6-0 nylon sutures with the wound edges being well approximated. No sutures were placed in the cartilage. Patient tolerated the procedure well. No complications were met. The wound was cleansed and dressed with a Bacitracin dressing. A gentle but appropriate bolster dressing was applied with good fit. Please refer to further documentation regarding her stay. Total laceration length: 3 cm. Estimated blood loss: 1 mL. Total sutures: 12, 6-0 nylon sutures. No absorbable sutures were placed. I recommend suture removal in 7 days. .
--- NOTE | 2023-03-02 19:11 | Emergency Department Note ---
Impression & Plan Syncope and collapse, CHI (closed head injury), Contusion of right chest wall, Laceration of right ear, Hypomagnesemia ED Provider Note NAME: RAGINI GODFREY AGE: 87 SEX: Female INFORMANT: Patient ED PROVIDER(S): Berry Mccann MD CHIEF COMPLAINT: Syncope PLAN: Disposition: Admitted Outpatient prescription management: none Referral: None MEDICAL DECISION MAKING: Patient presented because of a syncopal episode. She did suffer a laceration to the right ear. CT imaging of the head and cervical spine performed and was negative. Patient had a negative chest x-ray. ECG showed a paced rhythm as did cardiac monitoring. I did have her pacemaker interrogated and thankfully no significant dysrhythmia was noted. Patient's CBC and chemistry panel are unremarkable except for mildly low magnesium level and mildly low glucose. This was rechecked and the glucose was normalized. Cardiac troponin negative. Urinalysis is pending. The patient had her laceration repaired by Adalid FRANKLIN. Please see his note for details. The patient lives alone and had a syncopal episode. Believe further monitoring is appropriate from a safety standpoint. Patient is in agreement. Also urinalysis is still pending. Consultation was made with the [facility] service. Case discussed and diagnostics were reviewed. Patient was evaluated in the ER for further management. Care/management discussed with: Discussed with market development manager none Level of care consideration(s): After review of the information above and other included data, I feel the patient requires escalation of care to admission. Triage Nursing notes: reviewed and agree them. Vital Signs: reviewed and remarkable for no significant abnormalities Additional History obtained from: none Chronic Medical/Social Conditions affecting care: A-fib, pacemaker Prior/ Outside/ External records reviewed: none Differential Diagnosis: Vasovagal event, dehydration, infection, hypoglycemia, electrolyte abnormalities, cardiac sources, intracerebral event, pulmonary embolism, seizure, toxicologic, neurologic, as well as other pathologies. Diagnostics, independently interpreted by me: ECG: Twelve-lead ECG reveals an atrial paced rhythm at [address] elevation or depression. No PVCs. Cardiac Monitoring: Cardiac monitoring ordered by me: The patient was placed on continuous cardiac monitoring and observed. It revealed a paced rhythm at 74 bpm Medical decision rules: none Imaging studies: CT scans of the head and cervical spine are negative for acute fracture dislocation. X-ray imaging of the chest reveals no evidence of pneumothorax or hemothorax. No obvious rib fracture. HPI: 87 year old Female arrives for evaluation of syncope. Patient states that she was sitting at home and got up and instantly felt lightheaded and passed out. She denied any palpitations or chest pain prior. She states she was in her normal state of health. Patient has a pacemaker in place. She feels like she landed on her right chest as well as her right ear. Bleeding was noted from the right ear. Pt denies headache, fevers, chills, diaphoresis, visual changes, neck pain, chest pain, breathing difficulties, nausea, vomiting, abdominal pain, back pain, melena, hematochezia, urinary symptoms, numbness, weakness, lymphadenopathy, rash, or other complaints. PAST MEDICAL HISTORY: See Below, sick sinus syndrome PAST SURGICAL HISTORY: See Below, pacemaker SOCIAL HISTORY: See Below, lives alone HOME MEDICATIONS: See Below ALLERGIES: See Below VITALS: See Below PHYSICAL EXAMINATION: GENERAL: Awake, alert, well-appearing, in no distress HENT: Normocephalic, right scalp contusion. There is a small laceration to the right pinna. TMs normal. Oropharynx unremarkable. EYES: Normal conjunctiva. Sclera non-icteric. PERRL NECK: Inspection normal. Non-tender. Supple. No nuchal rigidity. FROM. No masses. RESPIRATORY: Clear to auscultation. No wheezes. No rales. Normal respiratory effort. CARDIAC: Normal rate. Normal rhythm. No murmurs. No rubs. Extremities warm and well perfused. Pulses equal. No JVD. GI: Soft, non-distended. No tenderness to palpation. No rebound or guarding. No masses. RECTAL: Deferred. MUSCULOSKELETAL: Atraumatic. Chest examination reveals mild right anterior rib tenderness. The back is symmetrical on inspection without obvious abnormality. There is no CVA tenderness to palpation. No joint edema. LOWER EXTREMITIES: Calves are equal size bilaterally and non-tender. No edema. No discoloration. NEURO: Normal sensorium. No sensory or motor deficits noted. Current nerves II through XII intact. SKIN: No rash or jaundice noted. PROCEDURES: none CRITICAL CARE: none OBSERVATION NOTE: none Past Med/Surg History Medical History (Updated 03/02/23 @ 19:11 by Berry Mccann MD) Impacted cerumen Sinus node dysfunction SSS (sick sinus syndrome) pacer planned 08/13/22 Afib Closed right hip fracture (08/13/22) History of upper respiratory infection Vitamin D deficiency Osteoporosis, senile Macular degeneration Hypothyroidism Hypertension Hyperlipidemia Hiatal hernia Gout Depression CKD (chronic kidney disease), stage III Benign hypertension with chronic kidney disease, stage III Surgical History Status post placement of cardiac pacemaker History of tonsillectomy History of surgical removal of skin lesion skin tag up to 15 S/P cataract surgery Family History Father , age 79 Stroke syndrome Mother , age 83 Cardiac failure Brother Lung cancer Denies family history of Ovarian cancer Prostate cancer Myocardial infarction Breast cancer Colorectal cancer Social History Smoking Status: Former smoker Tobacco Type: Cigarettes Age Started Using Tobacco: 15; Cigarettes Per Day: 5-6 CIGARETTES; Second Hand Exposure: No; Do You Dip or Chew Tobacco: No; Hx Alcohol Use: Yes Hx Substance Use: No Preferred Language: Palauan Communication Ability: Effective Visual Impairment: No Limitations Hearing Ability: Use of Hearing Aid Injury Prevention Coordinator Required: No Beliefs That Will Affect Care: None marital status: / Current Living Situation: Alone current occupational status: retired Feels Safe at Home: Yes Childhood Exposure to Second-Hand Smoke: No Diet: regular Diet Comment: regular caffeine: Yes during the past year weight has: remained stable Dental Care, Regularly: No Physical Activity Frequency: Daily Seatbelt Use: always Sunscreen Use: No Assistive Devices: None Allergies Allergies Allergy/AdvReac Type Severity Reaction Status Date / Time atenolol Allergy Unknown Verified 01/07/23 13:33 chlorthalidone Allergy Unknown Verified 01/07/23 13:33 enalapril Allergy Unknown Verified 01/07/23 13:33 iodine Allergy Unknown Verified 01/07/23 13:33 shellfish derived Allergy Unknown Verified 01/07/23 13:33 Sulfa (Sulfonamide Allergy Unknown Verified 01/07/23 13:33 Antibiotics) amoxicillin [From Augmentin] Allergy Nausea and Verified 01/07/23 13:33 vomitting Beta-Blockers Allergy Verified 01/07/23 13:33 (Beta-Adrenergic Bloc clavulanic acid Allergy Verified 01/07/23 13:33 [From Augmentin] enalaprilat [From Vasotec] Allergy Verified 01/07/23 13:33 naproxen [From Aleve] Allergy Hives with Verified 01/07/23 13:33 throat swelling. Home Meds Home Medications Medication Instructions Recorded Confirmed allopurinol 300 mg tablet 300 mg PO .COMPLEX 10/27/18 01/07/23 betamethasone dipropionate 0.05 % 1 applic topical BID 09/11/22 01/07/23 topical cream acetaminophen 325 mg capsule 325 mg PO QID PRN 10/08/22 01/07/23 (Tylenol) sulindac 200 mg tablet 200 mg PO DAILY 10/08/22 01/07/23 Previous Rx's Medication Instructions Recorded ferrous sulfate 325 mg (65 mg 325 mg PO DAILY #90 tabs 10/01/22 iron) tablet levothyroxine 88 mcg tablet 88 mcg PO DAILY #90 tabs 10/01/22 multivitamin 1 tab PO DAILY #90 tabs 10/01/22 sertraline 50 mg tablet See Rx Instructions .Route 10/01/22 .COMPLEX #135 tabs amlodipine 5 mg tablet (Norvasc) 5 mg PO DAILY #30 tabs 12/26/22 apixaban 5 mg tablet (Eliquis) 5 mg PO BID #60 tabs 12/26/22 cholecalciferol (vitamin D3) 25 2,000 unit PO DAILY #30 tabs 12/26/22 mcg (1,000 unit) tablet Results & Data (ED) Vital Signs Vital Signs - 24 hr 03/02/23 15:15 03/02/23 15:30 03/02/23 16:34 Temperature 36.4 C L Temperature Source Oral Pulse Rate 66 74 Pulse Rate [Right Finger] 77 Pulse Rhythm Regular Regular Pulse Rhythm [Right Finger] Regular Pulse Strength Normal Pulse Strength [Right Finger] Normal Respiratory Rate 18 20 20 Respiratory Effort / Characteristics Non-Labored Spontaneous Non-Labored Spontaneous Respiratory Depth Normal Normal Respiratory Pattern Regular Regular Blood Pressure 154/81 H Blood Pressure [Right Arm] 137/64 Blood Pressure Mean 105 Blood Pressure Mean [Right Arm] 88 Blood Pressure Position Sitting Blood Pressure Position [Right Arm] Sitting Pulse Oximetry 96 96 94 Oxygen Delivery Method Room Air Room Air Room Air Sepsis Recent Fever Within 48 Hours No Sepsis New/Unexplained Change in Mental Status No Sepsis Action Taken by Nursing No Action Required 03/02/23 16:36 03/02/23 17:00 Temperature Temperature Source Pulse Rate 65 Pulse Rate [Right Finger] 74 Pulse Rhythm Pulse Rhythm [Right Finger] Regular Pulse Strength Pulse Strength [Right Finger] Normal Respiratory Rate 20 Respiratory Effort / Characteristics Non-Labored Spontaneous Respiratory Depth Normal Respiratory Pattern Regular Blood Pressure Blood Pressure [Right Arm] 136/69 Blood Pressure Mean Blood Pressure Mean [Right Arm] 91 Blood Pressure Position Blood Pressure Position [Right Arm] Sitting Pulse Oximetry 96 Oxygen Delivery Method Room Air Sepsis Recent Fever Within 48 Hours Sepsis New/Unexplained Change in Mental Status Sepsis Action Taken by Nursing Laboratory Data 03/02/23 15:51 03/02/23 15:51 Lab Results 03/02/23 03/02/23 Range/Units 15:51 17:42 WBC 9.83 (4.8-10.8) K/ul RBC 3.62 L (4.20-5.40) M/uL Hgb 11.0 L (12.0-16.0) g/dl Hct 32.0 L (37.0-47.0) % MCV 88.4 (80.0-100.0) fL MCH 30.4 (25.0-34.0) pg MCHC 34.4 (32.0-36.0) g/dL RDW Std Deviation 46.0 (36.4-46.3) fL RDW Coeff of Fabriec 14.3 (11.5-14.5) % Plt Count 569 H (130-400) K/uL MPV 10.5 (9.4-12.4) fL Immature Gran % (Auto) 0.5 % Neut % (Auto) 74.1 % Lymph % (Auto) 15.5 % Aurora % (Auto) 5.9 % Eos % (Auto) 3.3 % Baso % (Auto) 0.7 % Neut # (Auto) 7.29 H (1.40-6.50) K/uL Lymph # (Auto) 1.52 (1.20-3.40) K/uL Aurora # (Auto) 0.58 (0.11-0.59) K/uL Eos # (Auto) 0.32 (0.00-0.50) K/uL Baso # (Auto) 0.07 (0.00-0.20) K/uL Immature Gran # (Auto) 0.05 (0.01-0.20) K/uL Sodium 136 (136-145) mmol/L Potassium 3.8 (3.5-5.1) mmol/L Chloride 100 (98-107) mmol/L Carbon Dioxide 28 (21-32) mmol/L Anion Gap 8 (3-11) BUN 18 (6-23) mg/dl Creatinine 1.08 (0.6-1.2) mg/dl Est Cr Clr Drug Dosing 29.0 ml/min Est GFR ( Amer) 53.1 ml/min Est GFR (Non-Af Amer) 45.8 ml/min BUN/Creatinine Ratio 16.7 (10-20) Glucose 62 L (70-99(Fasting)) mg/dl POC Glucose 88 (70-99) mg/dl Calcium 9.6 (8.6-10.3) mg/dl Magnesium 1.5 L (1.7-2.4) mg/dl Total Bilirubin 0.5 (0.2-1.0) mg/dl AST 22 (13-39) U/L ALT 8 (7-52) U/L Alkaline Phosphatase 78 (34-104) U/L Troponin I High Sens 7.4 (0-14) pg/ml Total Protein 6.5 (6.0-8.3) gm/dl Albumin 3.9 (3.4-5.0) gm/dl Globulin 2.6 (2.5-4.0) gm/dl Albumin/Globulin Ratio 1.5 (0.9-2) TSH 2.483 (0.300-4.500) uIu/ml Administered Medications Discontinued Medications Lidocaine HCl (Xylocaine 1%/Sod Bicarb 20 Ml Vial) 20 ml INFIL NOW ONE Stop: 03/02/23 17:03 Last Admin: 03/02/23 17:07 Dose: 20 ml Documented By: JACI Imaging Data Radiologist's Impression: Cervical Spine CT 03/02/23 16:34 CT SCAN OF THE CERVICAL SPINE CLINICAL HISTORY: Trauma. Syncope. Fall. COMPARISON STUDY: CT scan of the cervical spine dated 08/13/2022. TECHNIQUE: CT scan of the cervical spine is performed from the skull base to the upper thoracic spine. Images are reviewed in the axial, sagittal, and coronal planes. IV contrast was not administered for this examination. A dose lowering technique was utilized adhering to the principles of ALARA. CT DOSE: 918.97 mGy.cm FINDINGS: Skeletal structures: The skeletal structures are osteopenic. There is no evidence of fracture or subluxation involving the cervical spine. Vertebral body height and alignment are maintained. Anterior osteophytes are seen throughout. There is hyperlordosis. The odontoid process and lateral masses are intact. The atlantoaxial articulation is preserved noting productive degenerative change. The spinous processes appear intact. There are minimal chronic superior compression deformities of T1 and T3. There is mild multilevel facet arthropathy. Intervertebral discs: Moderate disc space narrowing is seen at C5-C6. Mild narrowing is noted at the remaining cervical levels. Central canal: Posterior disc osteophyte complexes at C4-C5, C5-C6, and C6-C7 may contribute to acquired compromise of the central canal. Soft tissues: The prevertebral and paraspinous soft tissues are within normal limits. There is atherosclerotic calcification of the carotid bulbs. Pacemaker leads are noted at the left thoracic inlet. Calvarium: The visualized calvarium at the skull base appears intact. Brain parenchyma: Partially visualized brain parenchyma at the skull base is within normal limits. Sinuses and mastoids: The visualized paranasal sinuses are clear. The mastoid air cells are well pneumatized. Lung apices: Clear as visualized. IMPRESSION: 1. There is no evidence of cervical spine fracture or subluxation. 2. Osteopenia and spondylotic changes above. ACT 112: Negative or not required by law. Electronically signed by: Sung Jose M.D. 03/02/2023 5:08 PM Chest X-Ray 03/02/23 16:34 SINGLE VIEW CHEST CLINICAL HISTORY: Fall. FINDINGS: An AP, portable, upright chest radiograph is compared to study dated 08/15/2022. A 2-lead cardiac pacemaker is unchanged in position. The heart is enlarged noting atherosclerotic calcification of the thoracic aorta. The pulmonary vasculature is noncongested. Chronic interstitial thickening is similar to previous. Mild scarring/atelectasis is noted at the lung bases. No airspace consolidation or large pleural effusion is identified. No pneumothorax is seen. The skeletal structures are osteopenic. The bony thorax is grossly intact. IMPRESSION: 1. Cardiomegaly and cardiac pacemaker without radiographic evidence of congestive failure. 2. No airspace consolidation or large pleural effusion is identified. ACT 112: Negative or not required by law. Electronically signed by: Sung Jose M.D. 03/02/2023 6:[address] 03/02/23 16:34 CT SCAN OF THE BRAIN WITHOUT IV CONTRAST CLINICAL HISTORY: Syncope. Fall. COMPARISON STUDY: CT of the brain dated 08/13/2022. TECHNIQUE: Unenhanced axial CT scan of the brain is performed from the vertex to the skull base. A dose lowering technique was utilized adhering to the principles of ALARA. FINDINGS: Brain parenchyma: There is age-related involutional change noting moderate to advanced subcortical and periventricular microangiopathic disease. There is no hemorrhage, mass effect, or evidence of acute territorial ischemia by CT criteria. 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 Jaramillo-white matter differentiation is preserved. No extra-axial fluid collection is seen. Ventricles, sulci, cisterns: Prominent secondary to involutional change. Intracranial vasculature: There is atherosclerotic calcification of the cavernous carotid artery. Calvarium: The skeletal structures are osteopenic. No depressed calvarial fracture is identified. Sinuses and mastoids: The visualized paranasal sinuses are clear. The mastoid air cells are well pneumatized. Orbits: The bony orbits are grossly intact. There are bilateral ocular lens implants. IMPRESSION: There is no hemorrhage, mass effect, or evidence of acute territorial ischemia by CT criteria. ACT 112: Negative or not required by law. Electronically signed by: Sung Jose M.D. 03/02/2023 5:02 PM Discharge Plan Visit Data Chief Complaint: Fall ED Provider: Berry Mccann Discharge Problem: Syncope and collapse, CHI (closed head injury), Contusion of right chest wall, Laceration of right ear, Hypomagnesemia Forms Stand Alone Forms: [employer] Prescriptions Prescriptions: No Action betamethasone dipropionate 0.05 % cream 1 applic topical BID Patient Comments: CONFIRMED W/ PT AND HARSHAL BUNCH DC SUMMARY 09/11/22 Rx Instructions: 1 APPLICATION TOPICAL BID. APPLY TO LEGS AND ARMS. sertraline 50 mg tablet See Rx Instructions .ROUTE .COMPLEX Qty: 135 3RF Dose Instruction: TAKE 1 AND 1/2 TABLETS BY MOUTH EVERY DAY Rx Instructions: TAKE 1 AND 1/2 TABLETS BY MOUTH EVERY DAY ferrous sulfate 325 mg (65 mg iron) tablet 325 mg PO DAILY Qty: 90 1RF Patient Comments: CONFIRMED W/ PT AND HARSHAL BUNCH DC SUMMARY 09/11/22 multivitamin Tablet 1 tab PO DAILY Qty: 90 1RF levothyroxine 88 mcg tablet 88 mcg PO DAILY Qty: 90 3RF Eliquis 5 mg tablet 5 mg PO BID Qty: 60 2RF cholecalciferol (vitamin D3) 25 mcg (1,000 unit) tablet 2,000 unit PO DAILY Qty: 30 2RF amlodipine [Norvasc] 5 mg tablet 5 mg PO DAILY Qty: 30 2RF allopurinol 300 mg tablet 300 mg PO .COMPLEX Patient Comments: 300 mg PO Take 1/2 tablet daily; Rx Instructions: 300 mg PO Take 1/2 tablet daily; sulindac 200 mg tablet 200 mg PO DAILY acetaminophen [Tylenol] 325 mg capsule 325 mg PO QID PRN Referrals Referrals: Bobo Arvizu CRNP [Primary Care Provider] -
--- NOTE | 2023-03-02 19:41 | History & Physical Report ---
Date of Service March 02, 2023 Assessment & Plan (1) Syncope and collapse: Plan: Patient was brought to the hospital after she passed out. She states she finished talking to the niece got up to go to the kitchen then passed out. However over the past 1 week she is experiencing some palpitations. Etiology of syncope could be due to orthostatic changes or arrhythmias. Although in emergency department her pacemaker was interrogated and found to be working well We will repeat orthostatic blood pressure Obtain 2D echo, monitor on telemetry (2) Laceration of right ear: Plan: This has been wrapped in clean dressing in the emergency department (3) Contusion of right chest wall: Plan: No acute fracture or dislocation Continue pain management with Tylenol (4) Hypomagnesemia: Plan: Replace (5) Status post placement of cardiac pacemaker: Plan: Pacemaker was interrogated and found to be working well in the ED today (6) SSS (sick sinus syndrome): Plan: Status post pacemaker Interrogated and found to be working well (7) Afib: Plan: Rate is under good control Continue home medications continue apixaban Plan Admit to telemetry Observe overnight Full code DVT prophylaxis apixaban History of Present Illness Chief Complaint: Syncope Primary Care Provider: ETO Zarco Is an 87-year-old female with a history of sick sinus syndrome status post pacemaker, atrial fibrillation on anticoagulation CKD stage III hypertension who presents to the hospital today following a syncopal episode. According to the patient she lives by herself and started on a couch while talking to the niece immediately she hung up she stood up to go to the kitchen then she passed out. Of note, she said over the past 1 week has been experiencing intermittent palpitations but no chest pains. Upon arrival at the emergency department it was noticed that she sustained a laceration of the right ear. Her pacemaker was also interrogated and found to be working well orthostatics were about to be checked. However patient be admitted to the hospital for observation. The last time she had a syncopal episode was sometime in August 2022 during which she sustained a fracture. Allergies Allergy/AdvReac Type Severity Reaction Status Date / Time atenolol Allergy Unknown Verified 01/07/23 13:33 chlorthalidone Allergy Unknown Verified 01/07/23 13:33 enalapril Allergy Unknown Verified 01/07/23 13:33 iodine Allergy Unknown Verified 01/07/23 13:33 shellfish derived Allergy Unknown Verified 01/07/23 13:33 Sulfa (Sulfonamide Allergy Unknown Verified 01/07/23 13:33 Antibiotics) amoxicillin [From Augmentin] Allergy Nausea and Verified 01/07/23 13:33 vomitting Beta-Blockers Allergy Verified 01/07/23 13:33 (Beta-Adrenergic Bloc clavulanic acid Allergy Verified 01/07/23 13:33 [From Augmentin] enalaprilat [From Vasotec] Allergy Verified 01/07/23 13:33 naproxen [From Aleve] Allergy Hives with Verified 01/07/23 13:33 throat swelling. Home Medications Medication Instructions Recorded Confirmed Type allopurinol 300 mg tablet 300 mg PO .COMPLEX 10/27/18 01/07/23 History betamethasone dipropionate 0.05 % 1 applic topical BID 09/11/22 01/07/23 History topical cream ferrous sulfate 325 mg (65 mg 325 mg PO DAILY #90 tabs 10/01/22 01/07/23 Rx iron) tablet levothyroxine 88 mcg tablet 88 mcg PO DAILY #90 tabs 10/01/22 01/07/23 Rx multivitamin 1 tab PO DAILY #90 tabs 10/01/22 01/07/23 Rx sertraline 50 mg tablet See Rx Instructions .Route 10/01/22 01/07/23 Rx .COMPLEX #135 tabs acetaminophen 325 mg capsule 325 mg PO QID PRN 10/08/22 01/07/23 History (Tylenol) sulindac 200 mg tablet 200 mg PO DAILY 10/08/22 01/07/23 History amlodipine 5 mg tablet (Norvasc) 5 mg PO DAILY #30 tabs 12/26/22 01/07/23 Rx apixaban 5 mg tablet (Eliquis) 5 mg PO BID #60 tabs 12/26/22 01/07/23 Rx cholecalciferol (vitamin D3) 25 2,000 unit PO DAILY #30 tabs 12/26/22 01/07/23 Rx mcg (1,000 unit) tablet Past Med/Surg History Medical History (Updated 03/02/23 @ 19:40 by Bridgette Meyers MD) Impacted cerumen Sinus node dysfunction SSS (sick sinus syndrome) pacer planned 08/13/22 Afib Closed right hip fracture (08/13/22) History of upper respiratory infection Vitamin D deficiency Osteoporosis, senile Macular degeneration Hypothyroidism Hypertension Hyperlipidemia Hiatal hernia Gout Depression CKD (chronic kidney disease), stage III Benign hypertension with chronic kidney disease, stage III Surgical History Status post placement of cardiac pacemaker History of tonsillectomy History of surgical removal of skin lesion skin tag up to 15 S/P cataract surgery Family History Father , age 79 Stroke syndrome Mother , age 83 Cardiac failure Brother Lung cancer Denies family history of Ovarian cancer Prostate cancer Myocardial infarction Breast cancer Colorectal cancer Social History Smoking Status: Former smoker Tobacco Type: Cigarettes Age Started Using Tobacco: 15; Cigarettes Per Day: 5-6 CIGARETTES; Second Hand Exposure: No; Do You Dip or Chew Tobacco: No; Hx Alcohol Use: Yes Hx Substance Use: No Preferred Language: Persian Communication Ability: Effective Visual Impairment: No Limitations Hearing Ability: Use of Hearing Aid 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 Physical Exam Physical Exam: The patient is awake, alert and oriented 3, well developed and well nourished, normocephalic and atraumatic, lying in bed and in no acute distress. HEENT--PERRL, EOMI, mucous membranes and oropharynx mildly dry Neck--supple. No JVD. No bruits. Thyroid normal, trachea midline, no adenopathy. Heart--normal S1 and S2. No murmurs, rubs or gallops. Lungs--clear bilaterally, no respiratory distress, no accessory muscle use. Abdomen--normal bowel sounds and soft. Mild epigastric and left sided abdominal pain Extremities--no cyanosis or clubbing. No edema. Dermatologic--normal skin turgor, normal color, no abnormal lymph nodes, no rash. Neurologic--cranial nerves II through XII grossly intact. Rheumatologic--normal range of motion. Psychiatric--normal affect. Results & Data Results & Data Vital Signs (Past 12 Hours) Vital Signs Temp Pulse Pulse Resp BP BP Pulse Ox 03/02/23 17:00 74 20 136/69 96 03/02/23 16:36 65 03/02/23 16:34 74 20 94 03/02/23 15:30 77 20 137/64 96 03/02/23 15:15 97.5 F L 66 18 154/81 H 96 O2 Del Method 03/02/23 17:00 Room Air 03/02/23 16:36 03/02/23 16:34 Room Air 03/02/23 15:30 Room Air 03/02/23 15:15 Room Air PG Care Time/CCT Total # of Minutes Spent Total Time Spent with Patient: Total time spent is greater than 50% in coordination of care (as documented) at patient's floor/unit and/or counseling patient: Coding Level of Care Code 43041 INT INP/OBS CARE 3/75MIN Diagnoses Syncope and collapse R55 Laceration of right ear S01.311A Contusion of right chest wall S20.211A Hypomagnesemia E83.42 Status post placement of cardiac pacemaker Z95.0 SSS (sick sinus syndrome) I49.5 Afib I48.91 Time Spent (min) 75
[2023-03-02 20:07] LABS: Appearance Urine Clear (Clear); Bacteria Urine Automated 4+ (Negative); Bilirubin Urine Negative (Negative); Blood Urine Negative (Negative); Cast Urine Automated 0 /lpf (0-5); Color Urine Yellow; Glucose Urine UA Negative (Negative); Ketones Urine Negative (Negative); Leukocyte Esterase Urine 1+ (Negative); Nitrite Urine Negative (Negative); Protein Urine Negative (Negative); RBC Urine Automated 0-4 /hpf (0-4); Specific Gravity Urine 1.008 (1.000-1.030); Urobilinogen Urine Negative (Negative)
[2023-03-02] MEDS ORDERED: ACETAMINOPHEN 325 MG TAB PO PRN (22:40)
[2023-03-02] MEDS: APIXABAN 5 MG TABLET PO SCH (23:06)
[2023-03-03] MEDS: LEVOTHYROXINE SODIUM 88 MCG TABLET PO SCH (06:56)
[2023-03-03] MEDS: allopurinoL 300 MG TAB PO SCH (08:22)
[2023-03-03] MEDS: CHOLECALCIFEROL 1,000 UNITS 25 MCG TAB PO SCH (08:23)
[2023-03-03] MEDS: amLODIPine BESYLATE 5 MG TAB PO SCH (08:23)
[2023-03-03] MEDS: APIXABAN 5 MG TABLET PO SCH ×2 (08:23→19:52)
[2023-03-03] MEDS: SERTRALINE HCL 50 MG TABLET PO SCH (08:23)
[2023-03-03] MEDS: FERROUS SULFATE 325 MG TAB PO SCH (08:23)
[2023-03-03] MEDS: SULINDAC 200 MG TAB PO SCH (08:23)
--- OUTSIDE RECORDS SUMMARY | 2023-03-03 09:12 | External Medical Summary | Continuity of Care Document ---
Author Name Unknown Organization [id number] Address [address] [place] [address] [id number] Care Team Providers Care Director Emergency Department Name Role Phone Stuart Mathis Primary Care Physician [phone] Encounter [facility] [id number] Date(s): 12/26/22 - 12/26/22 [facility] [address] [place] [id number] [facility] [address] [place] [id number] Encounter Diagnosis Hip fracture, right(Discharge Diagnosis) - 12/26/22 Discharge Disposition: Home or Self Care Attending Physician: MD Jenna, Stuart Lechuga Allergies, Adverse Reactions, Alerts Substance Reaction Severity Status naproxen rash Active amoxicillin rash Active chlorthalidone rash Active sulfa drugs rash Active beta blockers rash Active seafood anaphylaxis Severe Active iodine anaphalaxis Severe Active Medications acetaminophen 500 mg oral tablet Start: 08/29/22 14:30:00 EDT Start Date: 08/29/22 Status: Ordered allopurinol 300 mg oral tablet TAKE 1/2 TABLET BY MOUTH EVERY DAY Start Date: 03/19/22 Status: Ordered amLODIPine 5 mg oral tablet TAKE ONE TABLET BY MOUTH EVERY DAY Start Date: 03/19/22 Status: Ordered bacitracin 500 units/g topical ointment Start: 08/29/22 14:30:00 EDT Start Date: 08/29/22 Status: Ordered betamethasone dipropionate, augmented 0.05% topical cream Start: 03/19/22 14:24:00 EST, 1 appl, topical, bid, Disp# 50 g, Refills: 5, apply to legs and arms,Pharmacy: [facility] Start Date: 03/19/22 Status: Ordered Eliquis 5 mg oral tablet Start: 08/29/22 14:30:00 EDT, 1 tab, PO, bid Start Date: 08/29/22 Status: Ordered ferrous sulfate 325 mg (65 mg elemental iron) oral delayed release tablet Start: 08/29/22 14:30:00 EDT Start Date: 08/29/22 Status: Ordered levothyroxine 88 mcg (0.088 mg) oral tablet TAKE ONE TABLET BY MOUTH EVERY DAY Start Date: 03/19/22 Status: Ordered One-A-Day 50+ Start: 03/19/22 14:09:00 EST Start Date: 03/19/22 Status: Ordered sertraline 50 mg oral tablet TAKE 1 AND 1/2 TABLETS BY MOUTH EVERY DAY Start Date: 03/19/22 Status: Ordered sulindac 200 mg oral tablet TAKE ONE TABLET EVERY OTHER DAY Start Date: 03/19/22 Status: Ordered traMADol 50 mg oral tablet Start: 08/29/22 14:30:00 EDT Start Date: 08/29/22 Status: Ordered triamcinolone 0.1% topical cream Start: 08/29/22 14:30:00 EDT Start Date: 08/29/22 Status: Ordered Vitamin D3 Start: 03/19/22 14:09:00 EST Start Date: 03/19/22 Status: Ordered Mental Status 12/26/22 Barriers to Learning one year None evide nt Mandatory Health Literacy Documentation Yes Health Literacy Communication Barriers N ever Primary Language [place] Problem List Condition Confirmation Course Effective Dates Status Health St atus Informant Hip fracture, right Confirmed Active Diagnosis Diagnosis Type Effective Dates Health Status Cl inical Service Informant Hip fracture, right Discharge Diagnosis 12/26/22 Procedures Procedure Date Related Diagnosis Body Site Status History of hip surgery 2022 Co mpleted Social History Social History Type Response Smoking Status Never smoked cigaret edgard Sex Female Ortho Outpt Note * Liliane Scales: PERFORM, MODIFY, MODIFY MD [place] S: MODIFY Event Display: Ortho Outpt Note Authored Date: [id number] Name:RAGINI GODFREY Patient Number:[id number] :[id number] Date of Service:12/26/2022 CHIEF COMPLAINT: Follow-up s/p right hipfracture and subsequent right hip cemented hemiarthroplasty, DOS 08/14/22. HPI: [id number] Pollock presents today forfollow- up on her hemiarthroplasty of right hip. She states overall she feels good but does have a catching sensation if she turns a certain way. She is able to ambulate well with her walker and with a cane. She has completed PT. She continues to take Eliquis as advised by her service operations manager given her pacemaker. She has no concerns from a cardiovascular standpoint. PHYSICAL EXAM: Focus on the patients right lower extremity: Gait normal with walker and ambulates independently 5/5 strength kneeflexion and extension Intact straight leg raise, bilaterally DIAGNOSTIC REVIEW: Reviewed a DEXA scan from December 2022 of the back which shows osteopenia. FRAX calculation is above what is considered accepted. 25 hydroxy Vitamin D in08/2022 was 30. IMPRESSION: 87-year-old female status post right hip fracture and subsequent right hip cemented hemiarthroplasty, DOS 08/14/22. PLAN: Recommend taking 1,000 to 2,000 IU of Vitamin D3 supplementation daily. Medical intervention for osteopenia iswarranted after review of her DEXA scan and and advise follow-up with PCP. Advise against driving at this time given various factors. Follow-up as needed. Precautions. ATTESTATION: ILiliane, scribing for and in the presence of, Stuart West, on this date,312:25:24. Electronic Signature on File CC: TEO Monroy [address] [facility] [id number] * Electronically Reviewed/Signed by: Liliane Scales Author Signature Dt/Tm:12/26/2022 12:56 PM Electronically Reviewed/Signed by: Liliane Scales Cosigner Signature Dt/Tm: 12/26/2022 01:05 PM Electronically Reviewed/Signed by: MD Viji Aden Signature Dt/Tm: 12/27/2022 03:49 PM Division of Sports Medicine [place] Patient Care team information Care Team Personnel Name: MD Mathis Paul Position: Referring DIRECT Member Role: Primary Care Provider Address: Address: [address] [facility] [address] [place] [address]
--- NOTE | 2023-03-03 11:22 | XCELERA ---
[id number] [id number]
--- NOTE | 2023-03-03 11:22 | Cardiology Consultation ---
Date of Consultation March 03, 2023 Assessment & Plan (1) Syncope and collapse: (2) Orthostatic hypotension: (3) SSS (sick sinus syndrome): (4) Afib: (5) Paroxysmal atrial fibrillation: (6) Hypertension: Plan ASSESSMENT/PLAN: 1. Syncope: Likely due to orthostatic hypotension. Describes orthostatic symptoms over the past few weeks and noted to be orthostatic here. Baseline hypertensive however. Would recommend compression stockings, increasing hydration, and if no improvement, may need to reduce amlodipine to 2.5 mg daily and except some degree of hypertension to help avoid further injury. Change positions slowly. 2. Orthostatic hypotension: Plan as above. 3. Paroxysmal atrial fibrillation: Atrial paced on ECG. On anticoagulation therapy for stroke risk reduction. 4. 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 Pacemaker reportedly interrogated without significant abnormality however unable to locate at the time of this consultation. Follow-up with electrophysiology. 5. Hypertension: May need to accept hypertension given orthostatic hypotension and syncope, to avoid future injury. 6. Abnormal urine culture: Defer to hospitalist service. 7. Disposition: Cardiology will sign off. Please call for any further questions or concerns. Follow-up with her primary service coordinator elderly facility, Dr. Sam. Patient care communicated with Dr. Crisostomo of the hospitalist service. Today's visit was 45 minutes in duration, including [id number] time, counseling patient, coordinating care, reviewing records, and completing documentation. History of Present Illness Reason for Consultation: syncope, palpitations, pacemaker Requesting Physician: Oliver Crisostomo Attending Physician: Oliver Crisostomo History of Present Illness Ms. Horton is a very pleasant 87-year-old female with a history significant for tachybradycardia syndrome s/p dual-chamber pacemaker, sinus node dysfunction, paroxysmal atrial fibrillation, hypertension, dyslipidemia, and CKD. Her primary service coordinator elderly facility is Dr. Sam. She was admitted on 03/02/2023 after a syncopal episode. She had been sitting and after a phone conversation, she stood up and briefly lost consciousness. She states that she did not fall all the way to the ground but rather to her knees but struck her right ear, and required sutures. People living in her apartment building heard her fall and assisted her. Otherwise, the fall was unwitnessed. For the past few weeks she has been experiencing positional lightheadedness when getting up from a seated position. Prior to pacemaker, she had been experiencing dyspnea on exertion and according to records she was following in the past but there was improvement following pacemaker placement. Pacemaker was reportedly interrogated on presentation, however interrogation is unavailable for review at the time of this note. Orthostatic vital signs were abnormal, noting a drop of 40 mmHg in systolic pressure when going from a seated to standing position as per nursing staff. She denies chest pain, shortness of breath, palpitations, edema, melena, hematochezia, or hematuria. She was found to have an abnormal urine culture on presentation as well. Review of systems: As above. Review of systems otherwise negative/unremarkable. Family history: No known premature CAD. Social history: She quit smoking approximately 30 years ago. Occasional alcohol. . Has 3 children (2 daughters and 1 son). Lives in an apartment (independent) in [place]. She was unaccompanied. Allergies Allergy/AdvReac Type Severity Reaction Status Date / Time atenolol Allergy Unknown Verified 01/07/23 13:33 chlorthalidone Allergy Unknown Verified 01/07/23 13:33 enalapril Allergy Unknown Verified 01/07/23 13:33 iodine Allergy Unknown Verified 01/07/23 13:33 shellfish derived Allergy Unknown Verified 01/07/23 13:33 Sulfa (Sulfonamide Allergy Unknown Verified 01/07/23 13:33 Antibiotics) amoxicillin [From Augmentin] Allergy Nausea and Verified 01/07/23 13:33 vomitting Beta-Blockers Allergy Verified 01/07/23 13:33 (Beta-Adrenergic Bloc clavulanic acid Allergy Verified 01/07/23 13:33 [From Augmentin] enalaprilat [From Vasotec] Allergy Verified 01/07/23 13:33 naproxen [From Aleve] Allergy Hives with Verified 01/07/23 13:33 throat swelling. Home Medications Medication Instructions Recorded Confirmed Type allopurinol 300 mg tablet 300 mg PO .COMPLEX 10/27/18 03/02/23 History betamethasone dipropionate 0.05 % 1 applic topical BID 09/11/22 03/02/23 History topical cream ferrous sulfate 325 mg (65 mg 325 mg PO DAILY #90 tabs 10/01/22 03/02/23 Rx iron) tablet levothyroxine 88 mcg tablet 88 mcg PO DAILY #90 tabs 10/01/22 03/02/23 Rx multivitamin 1 tab PO DAILY #90 tabs 10/01/22 03/02/23 Rx sertraline 50 mg tablet See Rx Instructions .Route 10/01/22 03/02/23 Rx .COMPLEX #135 tabs acetaminophen 325 mg capsule 325 mg PO QID PRN Pain 10/08/22 03/02/23 History (Tylenol) sulindac 200 mg tablet 200 mg PO DAILY 10/08/22 03/02/23 History amlodipine 5 mg tablet (Norvasc) 5 mg PO DAILY #30 tabs 12/26/22 03/02/23 Rx apixaban 5 mg tablet (Eliquis) 5 mg PO BID #60 tabs 12/26/22 03/02/23 Rx cholecalciferol (vitamin D3) 25 2,000 unit PO DAILY #30 tabs 12/26/22 03/02/23 Rx mcg (1,000 unit) tablet Patient History Medical History (Updated 03/03/23 @ 14:52 by Damien Mcfarlane MD) Paroxysmal atrial fibrillation Impacted cerumen Sinus node dysfunction SSS (sick sinus syndrome) pacer planned 08/13/22 Afib Closed right hip fracture (08/13/22) History of upper respiratory infection Vitamin D deficiency Osteoporosis, senile Macular degeneration Hypothyroidism Hypertension Hyperlipidemia Hiatal hernia Gout Depression CKD (chronic kidney disease), stage III Benign hypertension with chronic kidney disease, stage III Surgical History Status post placement of cardiac pacemaker History of tonsillectomy History of surgical removal of skin lesion skin tag up to 15 S/P cataract surgery Family History Father , age 79 Stroke syndrome Mother , age 83 Cardiac failure Brother Lung cancer Denies family history of Ovarian cancer Prostate cancer Myocardial infarction Breast cancer Colorectal cancer Social History Smoking Status: Former smoker Tobacco Type: Cigarettes Age Started Using Tobacco: 15; Cigarettes Per Day: 5-6 CIGARETTES; Second Hand Exposure: No; Do You Dip or Chew Tobacco: No; Hx Alcohol Use: No Hx Substance Use: No Preferred Language: Vietnamese Communication Ability: Effective Visual Impairment: No Limitations Hearing Ability: Use of Hearing Aid Trim Line 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 Alert. HEENT: Anicteric sclera. Neck: No JVD. No bruits. Normal carotid upstrokes bilaterally. Cardiac: No ventricular heave. Regular. Normal S1-S2. No murmurs, rubs, or gallops. Pulmonary: Clear to auscultation bilaterally without wheezes, rales, or rhonchi. Abdomen: Soft, nontender, nondistended, with normoactive bowel sounds. No bruits noted. Extremities: 2+ radial pulses bilaterally. 2+ posterior tibialis pulses bilaterally. No edema or cyanosis. Psychiatric: Affect appears appropriate. Results & Data Vital Signs (Past 12 Hours) Vital Signs Temp Pulse Pulse Resp BP Pulse Ox O2 Del Method 03/03/23 08:03 37.1 C 77 18 144/72 H 93 Room Air 03/03/23 08:00 71 03/03/23 02:53 36.4 C L 67 18 162/83 H 93 Room Air Laboratory Results Laboratory Results - last 24 hr 03/02/23 03/02/23 03/02/23 15:51 17:42 19:41 WBC 9.83 RBC 3.62 L Hgb 11.0 L Hct 32.0 L MCV 88.4 MCH 30.4 MCHC 34.4 RDW Std Deviation 46.0 RDW Coeff of Fabrice 14.3 Plt Count 569 H MPV 10.5 Immature Gran % (Auto) 0.5 Neut % (Auto) 74.1 Lymph % (Auto) 15.5 [place] % (Auto) 5.9 Eos % (Auto) 3.3 Baso % (Auto) 0.7 Neut # (Auto) 7.29 H Lymph # (Auto) 1.52 [place] # (Auto) 0.58 Eos # (Auto) 0.32 Baso # (Auto) 0.07 Immature Gran # (Auto) 0.05 Sodium 136 Potassium 3.8 Chloride 100 Carbon Dioxide 28 Anion Gap 8 BUN 18 Creatinine 1.08 Est Cr Clr Drug Dosing 29.0 Est GFR ( Amer) 53.1 Est GFR (Non-Af Amer) 45.8 BUN/Creatinine Ratio 16.7 Glucose 62 L POC Glucose 88 Calcium 9.6 Magnesium 1.5 L Total Bilirubin 0.5 AST 22 ALT 8 Alkaline Phosphatase 78 Troponin I High Sens 7.4 Total Protein 6.5 Albumin 3.9 Globulin 2.6 Albumin/Globulin Ratio 1.5 TSH 2.483 Urine Color Yellow Urine Appearance Clear Urine pH 6.0 Ur Specific [facility] 1.008 Urine Protein Negative Urine Glucose (UA) Negative Urine Ketones Negative Urine Blood Negative Urine Nitrite Negative Urine Bilirubin Negative Urine Urobilinogen Negative Ur Leukocyte Esterase 1+ H Urine WBC (Auto) 5-10 H Urine RBC (Auto) 0-4 U Hyaline Cast (Auto) 0 U Epithel Cells (Auto) 10-20 H Urine Bacteria (Auto) 4+ H Diagnostic Findings ECHO 03/03/23: 1. Normal left ventricular size and systolic function. EF 65-70%. No regional wall motion abnormalities. Mild concentric left ventricular hypertrophy. 2. No significant valvular abnormalities. 3. Normal estimated right ventricular systolic pressure. 4. No significant change from prior study on 08/13/2022. Outpatient electrophysiology note reviewed. History and physical report reviewed. Urine culture 03/02/2023 positive for gram-negative bacilli. ECG personally reviewed 03/02/2023: Atrial paced 65 bpm. Labs notable for normal high-sensitivity troponin, stable renal function, normal potassium, hypomagnesemia, normal transaminase levels, normal TSH, abnormal but stable hemoglobin. CT head 03/02/2023: No hemorrhage per radiology. Chest x-ray 03/02/2023: Chronic interstitial thickening stable per radiology. Medications Administered Current Inpatient Medications Acetaminophen (Acetaminophen 325 Mg Tab) 325 mg PO QID PRN PRN Reason: Fever or headache Stop: 04/01/23 22:39 Allopurinol (Allopurinol 300 Mg Tab) 150 mg PO DAILY [facility] Stop: 04/02/23 08:59 Last Admin: 03/03/23 08:22 Dose: 150 mg Amlodipine Besylate (Amlodipine Besylate 5 Mg Tab) 5 mg PO DAILY [facility] Stop: 04/02/23 08:59 Last Admin: 03/03/23 08:23 Dose: 5 mg Apixaban (Apixaban 5 Mg Tablet) 5 mg PO BID [facility] Stop: 04/01/23 22:35 Last Admin: 03/03/23 08:23 Dose: 5 mg Ferrous Sulfate (Ferrous Sulfate 325 Mg Tab) 325 mg PO DAILY [facility] Stop: 04/02/23 08:59 Last Admin: 03/03/23 08:23 Dose: 325 mg Levothyroxine Sodium (Levothyroxine Sodium 88 Mcg Tablet) 88 mcg PO DAILYBB [facility] Stop: 04/02/23 06:29 Last Admin: 03/03/23 06:56 Dose: 88 mcg Sertraline HCl (Sertraline Hcl 50 Mg Tablet) 75 mg PO DAILY [facility] Stop: 04/02/23 08:59 Last Admin: 03/03/23 08:23 Dose: 75 mg Sulindac (Sulindac 200 Mg Tab) 200 mg PO DAILY [facility] Stop: 04/02/23 08:59 Last Admin: 03/03/23 08:23 Dose: 200 mg Vitamin D (Cholecalciferol 1,000 Units 25 Mcg Tab) 2,000 units PO DAILY [facility] Stop: 04/02/23 08:59 Last Admin: 03/03/23 08:23 Dose: 2,000 units PG Care Time/CCT Total # of Minutes Spent Total Time Spent with Patient: Total time spent is greater than 50% in coordination of care (as documented) at patient's floor/unit and/or counseling patient: Coding Level of Care Code 01778 INT INP/OBS CARE 2/55MIN Diagnoses Syncope and collapse R55 Orthostatic hypotension I95.1 SSS (sick sinus syndrome) I49.5 Paroxysmal atrial fibrillation I48.0 Atrial fibrillation type: paroxysmal Paroxysmal atrial fibrillation I48.0 Essential hypertension I10 Hypertension type: essential hypertension (4) Afib Atrial fibrillation type: paroxysmal Qualified Code(s): I48.0 - Paroxysmal atrial fibrillation (6) Hypertension Hypertension type: essential hypertension Qualified Code(s): I10 - Essential (primary) hypertension
--- NOTE | 2023-03-03 22:08 | Hospitalist Progress Note ---
Date of Service March 03, 2023 Assessment & Plan (1) Syncope and collapse: Plan: Patient was brought to the hospital after she passed out. She states she finished talking to the niece got up to go to the kitchen then passed out. However over the past 1 week she is experiencing some palpitations. Etiology of syncope could be due to orthostatic changes or arrhythmias. Although in emergency department her pacemaker was interrogated and found to be working well Appears more likely orthostatic hypotension. WIll continue to monitor, appreciate input from cardiology. (2) Laceration of right ear: Plan: This has been wrapped in clean dressing in the emergency department (3) Contusion of right chest wall: Plan: No acute fracture or dislocation Continue pain management with Tylenol (4) Hypomagnesemia: Plan: Replace (5) Status post placement of cardiac pacemaker: Plan: Pacemaker was interrogated and found to be working well in the ED today (6) SSS (sick sinus syndrome): Plan: Status post pacemaker Interrogated and found to be working well (7) Afib: Plan: Rate is under good control Continue home medications continue apixaban Plan Admit to telemetry Full code DVT prophylaxis apixaban Admission and Anticipated Discharge Date Admission Date: March 02, 2023 Subjective Patient reports no new symptoms. Review of Systems Review of Systems: All systems reviewed & are unremarkable except as noted in HPI & below Physical Exam Physical Exam: The patient is awake, alert and oriented 3 HEENT--PERRL, EOMI Neck--supple. No JVD. Heart--normal S1 and S2. No murmurs, rubs or gallops. Lungs--clear bilaterally, no respiratory distress, no accessory muscle use. Abdomen--normal bowel sounds and soft. Mild epigastric and left sided abdominal pain Extremities--no cyanosis or clubbing. No edema. Neurologic--cranial nerves II through XII grossly intact. Rheumatologic--normal range of motion. Psychiatric--normal affect. Results & Data Results & Data Vital Signs (Past 12 Hours) Vital Signs Temp Pulse Resp BP Pulse Ox O2 Del Method 03/03/23 19:42 37.1 C 64 18 155/83 H 94 Room Air 03/03/23 15:31 36.7 C 76 18 152/92 H 95 Room Air 03/03/23 12:03 36.7 C 76 18 170/87 H 94 Room Air PG Care Time/CCT Total # of Minutes Spent Total Time Spent with Patient: Total time spent is greater than 50% in coordination of care (as documented) at patient's floor/unit and/or counseling patient: Coding Level of Care Code 13069 SUB INP/OBS CARE 2/35MIN Diagnoses Syncope and collapse R55 Laceration of right ear S01.311A Contusion of right chest wall S20.211A Hypomagnesemia E83.42 Status post placement of cardiac pacemaker Z95.0 SSS (sick sinus syndrome) I49.5 Afib I48.91
[2023-03-04] MEDS: LEVOTHYROXINE SODIUM 88 MCG TABLET PO SCH (05:53)
[2023-03-04 06:24] LABS: Hematocrit (blood only) 32.7 % (37.0-47.0); Hemoglobin 11.2 g/dl (12.0-16.0); Mean Corpuscular Hgb Conc 34.3 g/dL (32.0-36.0); Mean Corpuscular Volume 87.7 fL (80.0-100.0); Mean Platelet Volume 10.2 fL (9.4-12.4); Platelet Count 507 K/uL (130-400); RDW Standard Deviation 44.5 fL (36.4-46.3); Red Blood Count 3.73 M/uL (4.20-5.40); White Blood Count 8.43 K/ul (4.8-10.8)
[2023-03-04] MEDS: allopurinoL 300 MG TAB PO SCH (08:01)
[2023-03-04] MEDS: SERTRALINE HCL 50 MG TABLET PO SCH (08:01)
[2023-03-04] MEDS: amLODIPine BESYLATE 5 MG TAB PO SCH (08:01)
[2023-03-04] MEDS: CHOLECALCIFEROL 1,000 UNITS 25 MCG TAB PO SCH (08:01)
[2023-03-04] MEDS: APIXABAN 5 MG TABLET PO SCH (08:01)
[2023-03-04] MEDS: SULINDAC 200 MG TAB PO SCH (08:01)
[2023-03-04] MEDS: FERROUS SULFATE 325 MG TAB PO SCH (08:01)
[2023-03-04 08:38] LABS: Calcium 9.6 mg/dl (8.6-10.3); Potassium 3.6 mmol/L (3.5-5.1)
[2023-03-04 08:43] LABS: BUN Creatinine Ratio 20.4 (10-20); Creatinine Clr Calc Pharmacy 29.7 ml/min; Est GFR (African American) 56.2 ml/min; Est GFR (Non-African American) 48.5 ml/min
--- NOTE | 2023-03-05 22:00 | Electrocardiogram Report ---
Test Reason : Blood Pressure : / mmHG Vent. Rate : 065 BPM Atrial Rate : 065 BPM P-R Int : 170 ms QRS Dur : 078 ms QT Int : 408 ms P-R-T Axes : 064 005 041 degrees QTc Int : 424 ms Atrial-paced rhythm with intermittent sinus complexes Abnormal ECG When compared with ECG of 16-AUG-2022 16:20, Electronic atrial pacemaker has replaced Atrial fibrillation Vent. rate has decreased BY 38 BPM Nonspecific T wave abnormality no longer evident in Inferior leads Confirmed by Damien Mcfarlane ([id number]) on 03/05/2023 9:59:41 PM Referred By: REFERRED SELF Confirmed By:Damien Mcfarlane
--- NOTE | 2023-03-08 09:28 | Discharge Summary ---
Date of Service March 04, 2023 Admission HPI Per Admitting Provider Is an 87-year-old female with a history of sick sinus syndrome status post pacemaker, atrial fibrillation on anticoagulation CKD stage III hypertension who presents to the hospital today following a syncopal episode. According to the patient she lives by herself and started on a couch while talking to the niece immediately she hung up she stood up to go to the kitchen then she passed out. Of note, she said over the past 1 week has been experiencing intermittent palpitations but no chest pains. Upon arrival at the emergency department it was noticed that she sustained a laceration of the right ear. Her pacemaker was also interrogated and found to be working well orthostatics were about to be checked. However patient be admitted to the hospital for observation. The last time she had a syncopal episode was sometime in August 2022 during which she sustained a fracture. Principal Diagnosis syncope Discharge Exam The patient is awake, alert and oriented 3 HEENT--PERRL, EOMI Neck--supple. No JVD. Heart--normal S1 and S2. No murmurs, rubs or gallops. Lungs--clear bilaterally, no respiratory distress, no accessory muscle use. Abdomen--normal bowel sounds and soft. Mild epigastric and left sided abdominal pain Extremities--no cyanosis or clubbing. No edema. Neurologic--cranial nerves II through XII grossly intact. Rheumatologic--normal range of motion. Psychiatric--normal affect. Discharge Data Allergies Allergy/AdvReac Type Severity Reaction Status Date / Time atenolol Allergy Unknown Verified 03/05/23 09:25 chlorthalidone Allergy Unknown Verified 03/05/23:25 enalapril Allergy Unknown Verified 03/05/23 09:25 iodine Allergy Unknown Verified 03/05/23 09:25 shellfish derived Allergy Unknown Verified 03/05/23 09:25 Sulfa (Sulfonamide Allergy Unknown Verified 03/05/23 09:25 Antibiotics) amoxicillin [From Augmentin] Allergy Nausea and Verified 03/05/23:25 vomitting Beta-Blockers Allergy Verified 03/05/23:25 (Beta-Adrenergic Bloc clavulanic acid Allergy Verified 03/05/23 09:25 [From Augmentin] enalaprilat [From Vasotec] Allergy Verified 03/05/23 09:25 naproxen [From Aleve] Allergy Hives with Verified 03/05/23 09:25 throat swelling. Consultations 03/02/23 19:14 ED Decision to Admit Stat 03/03/23 08:03 Consult Cardiology Routine Ordered Studies 03/02/23 16:34 CT cervical spine wo con Stat CT head/brain wo con Stat Hospital Course (1) Syncope and collapse: Patient was brought to the hospital after she passed out. She states she finished talking to the niece got up to go to the kitchen then passed out. However over the past 1 week she is experiencing some palpitations. Etiology of syncope could be due to orthostatic changes or arrhythmias. Although in emergency department her pacemaker was interrogated and found to be working well Appears more likely orthostatic hypotension. appreciate input from cardiology. Discharge on low intensity compression socks. May consider cutting back her amlodipine, will defer to her PCP (2) Laceration of right ear: This has been wrapped in clean dressing in the emergency department (3) Contusion of right chest wall: No acute fracture or dislocation Continue pain management with Tylenol (4) Hypomagnesemia: Replace (5) Status post placement of cardiac pacemaker: Pacemaker was interrogated and found to be working well in the ED today (6) SSS (sick sinus syndrome): Status post pacemaker Interrogated and found to be working well (7) Afib: Rate is under good control Continue home medications continue apixaban Total Time Total Time Spent Total Time Spent (In Minutes): 32 Discharge Plan Discharge Items Patient Disposition: Home - Self-Care Reason For Visit: SYNCOPE Discharge Diagnosis: syncope Activity: Resume your previous activity Non-emergency contact: Primary Care Provider Call non-emergency contact if: you have any medication questions Follow-up/Referrals: Bobo Arvizu CRNP [Primary Care Provider] - 03/13/23 10:20 am (Follow up scheduled on 03/13/23 @ 10:20) Diet: Regular Addtl Attending Provider Instructions: Recommend low intensity compression stockings, also recommend paying attention to water intake and making sure you are hydrated. If we see no improvement, we may consider cutting back your amlopdipine to 2.5 mg but switching it to the eveing. Pending Studies at Discharge: No Stand-Alone Forms: My [facility], Smoking Cessation Medications and DC Order Prescriptions: Continued betamethasone dipropionate 0.05 % cream 1 applic topical BID Patient Comments: CONFIRMED W/ PT AND HARSHAL BUNCH DC SUMMARY 09/11/22 Rx Instructions: 1 APPLICATION TOPICAL BID. APPLY TO LEGS AND ARMS. sertraline 50 mg tablet See Rx Instructions .ROUTE .COMPLEX Qty: 135 3RF Dose Instruction: TAKE 1 AND 1/2 TABLETS BY MOUTH EVERY DAY Rx Instructions: TAKE 1 AND 1/2 TABLETS BY MOUTH EVERY DAY ferrous sulfate 325 mg (65 mg iron) tablet 325 mg PO DAILY Qty: 90 1RF Patient Comments: CONFIRMED W/ PT AND HARSHAL BUNCH DC SUMMARY 09/11/22 multivitamin Tablet 1 tab PO DAILY Qty: 90 1RF levothyroxine 88 mcg tablet 88 mcg PO DAILY Qty: 90 3RF Eliquis 5 mg tablet 5 mg PO BID Qty: 60 2RF cholecalciferol (vitamin D3) 25 mcg (1,000 unit) tablet 2,000 unit PO DAILY Qty: 30 2RF amlodipine [Norvasc] 5 mg tablet 5 mg PO DAILY Qty: 30 2RF allopurinol 300 mg tablet 300 mg PO .COMPLEX Patient Comments: 300 mg PO Take 1/2 tablet daily; Rx Instructions: 300 mg PO Take 1/2 tablet daily; sulindac 200 mg tablet 200 mg PO DAILY acetaminophen [Tylenol] 325 mg capsule 325 mg PO QID PRN (Reason: Pain) No Action nitrofurantoin monohyd/m-cryst [Macrobid] 100 mg capsule 100 mg PO Q12H 5 Days Qty: 10 0RF Rx Instructions: must administer with a meal/food Discharge Orders: Discharge Order (Routine); Ordered 03/04/23 Ordered By: Oliver Crisostomo Admission Data Admit Date/Time: 03/02/23 19:32 Attending Provider: Oliver Crisostomo Admit Provider: Bridgette Meyers Primary Care Provider: Bobo Arvizu Other Providers: Bridgette Meyers; Kole Celaya; Matt Elizalde; Aditya Garcia; Christiano Vale; Ronaldo Sam; Leonid Chavez Jr; Damien Mcfarlane; Sonia Chaney; Jocelynn Lujan; Raul Acuna; Raul Byrne; Terence Joyce; Marleny [place]; Baylee Paulson; Angel Bryan; Jefe De Los Santos; Christiano Pratt V.; Dylan Reid Other Interventions: Discharge Summary Assessment (RN) Last Done: 03/04/23 13:27 Coding Level of Care Code 59430 INP/OBS DISCH >30 MIN Diagnoses Syncope and collapse R55 Laceration of right ear S01.311A Contusion of right chest wall S20.211A Hypomagnesemia E83.42 Status post placement of cardiac pacemaker Z95.0 SSS (sick sinus syndrome) I49.5 Afib I48.91
== END 2023-03-04 16:12 | disposition home or self-care (01) ==
LOC: ED 15:08 → 2E 15:08 → SUATTDRO 19:32 → 2E 21:58